=== PATIENT | female | born 1960 | race Two or more races ===

== ENCOUNTER → 2020-05-16 13:36 | Outpatient (BNVA) | payer MEDICAID, SELFPAY | PROVIDERS: Visit Provider Nurse Practitioner Family | DX: Z01.818 Encounter for other preprocedural examination (principal) | CPT/HCPCS: 99212 ==

== ENCOUNTER 2020-05-29 16:47 | Outpatient (REF) | payer MEDICAID, SELFPAY ==
--- NOTE | 2020-05-29 | MM_ITS ---
EXAMINATION: MM SCREENING DIGITAL BREAST TOMOSYNTHESIS, BILATERAL CLINICAL INFORMATION: Screening. Asymptomatic. The lifetime risk of breast cancer based on the Tyrer-Cuzick Model is 5%. COMPARISON: Mammography: 11/09/2018, 10/24/2017 TECHNIQUE: Digital breast tomosynthesis is performed in both the craniocaudal and mediolateral oblique views along with computer-aided detection (CAD). Synthesized 2D images are generated from the tomosynthesis. FINDINGS: The breasts are heterogeneously dense, which may obscure small masses (ACR BI-RADS breast composition Category c). There are no significant masses, abnormal calcifications, or other abnormalities. Parenchymal pattern is similar to prior studies. There is biopsy clip marker again noted mid 9:00 right breast. The axilla are unremarkable. MM/MM tomosynthesis screening BI IMPRESSION: No mammographic evidence of malignancy. ASSESSMENT: BI-RADS 1: Negative RECOMMENDATION: Routine annual mammography screening. This patient's information was entered into a reminder system with a target due date for their next mammogram.
== END 2020-05-29 16:48 | disposition home or self-care (01) ==
LOC: HO.MAMMO 16:47
PROVIDERS: PCP Internal Medicine; Visit Provider Internal Medicine
DX: Z12.31 Encounter for screening mammogram for malignant neoplasm of breast (principal)
CPT/HCPCS: 77063; 77067

== ENCOUNTER 2020-07-20 09:35 | Outpatient (REF) | payer MEDICAID, SELFPAY | END 2020-07-20 09:36 | disposition home or self-care (01) | LOC: HO.LAB 09:35 | PROVIDERS: Visit Provider Internal Medicine | DX: Z20.822 Contact with and (suspected) exposure to COVID-19 (principal) | CPT/HCPCS: 36415; C9803; U0003 ==

== ENCOUNTER 2020-07-27 10:06 | Day surgery (SDC) | payer MEDICAID, SELFPAY ==
--- NOTE | 2020-07-26 09:25 | HO.ANESPROP2 ---
Documented by User: Beatriz Bazzi 07/26/20 09:25 HPI - Anesthesia Eval Consult details Narrative: 59yo F for Colonoscopy PMFSH Past Medical History Medical History Diabetes mellitus HTN (hypertension) Hx of renal calculi Family History Family History Father Diabetes Heart problem Hypercholesteremia Mother HTN (hypertension) Diabetes H/O heart surgery Blood clot in vein Surgical History Surgical History History of bilateral carpal tunnel release Hx of section Hx of cholecystectomy Hx of cystoscopy Hx of dilation and curettage Social History Social History Alcohol intake: current Alcohol intake frequency: does not drink Smoking Status: Never smoker Use of substances other than those prescribed or required for medical reasons: No Advance Directives: No Advance Directives Information Provided: Yes Meds Allergies Allergy/AdvReac Type Severity Reaction Status Date / Time acetaminophen [Percocet] Allergy Severe edema Verified 07/27/20 11:02 morphine [MORPHINE] Allergy Intermediate HIVES/REDNESS Verified 07/27/20 11:02 TO FACE oxycodone [From PERCOCET] Allergy Intermediate RASH Verified 07/27/20 11:02 Penicillins [PENICILLINS] Allergy Intermediate RASH WITH Verified 07/27/20 11:02 HIVES Home Medications Medication Instructions Recorded Confirmed Type aspirin 81 mg tablet,delayed 81 mg PO DAILY 05/16/20 07/21/20 History release lisinopril 5 mg tablet 5 mg PO DAILY 05/16/20 07/21/20 History metformin 500 mg tablet 500 mg PO BID 05/16/20 07/21/20 History omeprazole 20 mg capsule,delayed 20 mg PO DAILY 05/16/20 07/21/20 History release simvastatin 10 mg tablet 10 mg PO QPM 05/16/20 07/21/20 History Exam Exam Date and Time: July 26, 2020924 Height,Weight and Vital Signs: Height 5 ft Assessment and Plan Assessment Anesthesia Assessment: Chart Reviewed Documented by User: Ciara Billingsley 07/27/20 12:05 [facility] Past Medical History Medical History Diabetes mellitus HTN (hypertension) Hx of renal calculi Family History Family History Father Diabetes Heart problem Hypercholesteremia Mother HTN (hypertension) Diabetes H/O heart surgery Blood clot in vein Family history of problems with anesthesia: No Surgical History Surgical History History of bilateral carpal tunnel release Hx of section Hx of cholecystectomy Hx of cystoscopy Hx of dilation and curettage History of Problems with Anesthesia: No Social History Social History Alcohol intake: current Alcohol intake frequency: does not drink Smoking Status: Never smoker Use of substances other than those prescribed or required for medical reasons: No Advance Directives: No Advance Directives Information Provided: Yes Meds Allergies Allergy/AdvReac Type Severity Reaction Status Date / Time acetaminophen [Percocet] Allergy Severe edema Verified 07/27/20 11:02 morphine [MORPHINE] Allergy Intermediate HIVES/REDNESS Verified 07/27/20 11:02 TO FACE oxycodone [From PERCOCET] Allergy Intermediate RASH Verified 07/27/20 11:02 Penicillins [PENICILLINS] Allergy Intermediate RASH WITH Verified 07/27/20 11:02 HIVES Home Medications Medication Instructions Recorded Confirmed Type aspirin 81 mg tablet,delayed 81 mg PO DAILY 05/16/20 07/21/20 History release lisinopril 5 mg tablet 5 mg PO DAILY 05/16/20 07/21/20 History metformin 500 mg tablet 500 mg PO BID 05/16/20 07/21/20 History omeprazole 20 mg capsule,delayed 20 mg PO DAILY 05/16/20 07/21/20 History release simvastatin 10 mg tablet 10 mg PO QPM 05/16/20 07/21/20 History Exam Height,Weight and Vital Signs: Vital Signs Temp Pulse Resp BP Pulse Ox 07/27/20 11:10 97.2 F 71 18 139/72 97 Pertinent Lab Results Pertinent Lab Results: Lab Results 07/27/20 Range/Units 11:11 POC Glucose 84 (60-115) mg/dL Airway Mallampati Class: II TM Dist: >3cm Neck ROM: Full Loose/Missing/Broken Teeth: No Heart: RRR Lungs: CTAB Assessment and Plan Assessment Anesthesia Assessment: Anesthesia Plan Discussed and Chart Reviewed Final Anesthetic Review NPO: Yes ASA Class: II Final Preanesthetic Review: No Changes in Pt Med Stat, Meds/Allgs Chart Reviewed, Consent Obtained/Reviewed and Anes Risks/Benef Reviewed Patient Risk: Low Procedure Risk: Low Assessment/Block/Sedation in SS: Assess/Block/Sedation-SS Anesthetic Plan Anesthetic Plan: MAC: Disposition: Standard PACU
[2020-07-27 11:10] VITALS: BP 139/72; PULSE 71; RESP 18; TEMP 36.2; O2SAT 97; BMI 25.4
[2020-07-27 11:15] LABS: Glucose, Whole Blood 84 mg/dL (60-115)
[2020-07-27] MEDS: Lactated Ringers 1,000 ML 100 ML IVCONT (11:27)
--- NOTE | 2020-07-27 11:35 | P.HPSUR_ITS ---
Pre-Procedural Eval Section B Chief Complaint: screening Relevant Family History (Specify if Yes): No Relevant Social History: None Present Medications: see Short Stay Collaborative assessment Medical History: Significant History (Diabetes mellitus HTN (hypertension) Hx of renal calculi) History of Previous Operations: Relevant previous surgery/procedure and date(s) (History of bilateral carpal tunnel release Hx of section Hx of cholecystectomy Hx of cystoscopy Hx of dilation and curettage) Allergies: Allergies Allergy/AdvReac Type Severity Reaction Status Date / Time acetaminophen [Percocet] Allergy Severe edema Verified 07/27/20 11:02 morphine [MORPHINE] Allergy Intermediate HIVES/REDNESS Verified 07/27/20 11:02 TO FACE oxycodone [From PERCOCET] Allergy Intermediate RASH Verified 07/27/20 11:02 Penicillins [PENICILLINS] Allergy Intermediate RASH WITH Verified 07/27/20 11:02 HIVES Review of Systems Sugical H&P ROS: Negative: Constitution, Cardiovascular, Respiratory, Neurological, Psychiatric, Hem-Onc, Allergic/Immunologic, Gastrointestinal, G enitourinary, Musculoskeletal, Integumentary, Endocrine and Eyes/Ears/Nose/Throat Exam Surgical H&P Exam: Normal: HEENT, Normal: Heart, Normal: Lungs, Normal: Extremities, Normal: Abdomen, Normal: Skin and Normal: Neurological Plan Diagnosis/Plan: Unchanged I have reviewed the history and physical and performed a pertinent physical examination on my patient. No changes have occurred unless specified.
--- NOTE | 2020-07-27 11:36 | PM.OP ---
Brief Operative Note Date of Service: 07/27/20 Pre-op diagnosis: colon screening Post-op diagnosis: same Procedure: see op note Surgeon: Joel Mae MD Anesthesia: MAC Estimated blood loss (mL): 0 Condition: stable Disposition: PACU
--- NOTE | 2020-07-27 11:36 | W.PM.OPN ---
Operative Note Operative Note Date of Service: 07/27/20 Narrative: Operative Information Procedure Description: Colonoscopy COLONOSCOPY Instrument: Olympus variable stiffness pediatric scope 190L Colonoscopy Monitoring: Vital signs and clinical assessment, continuous EKG monitoring, Pulse oximetry, Carbon Dioxide monitoring and blood pressure monitoring were done throughout the procedure. Colon withdrawal time was 13 minutes. Procedure: The patient was placed in the left lateral decubitis position and pre-procedure medications were administered. After a digital rectal examination of the ano-rectum, the video colonoscope was inserted into the rectum and advanced through the colon to the cecum/TI. The colonoscope was slowly withdrawn in a retrograde panoramic fashion and the colon mucosa was carefully examined including a retroflexed view of the rectum. Findings and interventions are described below. Procedure Difficulty:easy Findings: Terminal Ileum-normal Cecum:normal Ascending Colon: normal Transverse Colon -normal Descending Colon:normal Sigmoid Colon: 7-9 mm sessile polyp removed with forceps, otherwise normal Rectum: Retroflexion with small internal hemorrhoids, grade I Anorectum - normal Colon preparation: [place] Bowel Preparation Scale Right colon; 2 Transverse colon: 1 Left colon; 2 (0 = Unprepared colon segment with mucosa not seen due to solid stool that cannot be cleared. 1 = Portion of mucosa of the colon segment seen, but other areas of the colon segment not well seen due to staining, residual stool and/or opaque liquid. 2 = Minor amount of residual staining, small fragments of stool and/or opaque liquid, but mucosa of colon segment seen well. 3 = Entire mucosa of colon segment seen well with no residual staining, small fragments of stool or opaque liquid) Impression and Post Procedure Diagnosis: polyp internal hemorrhoids Plan: High fiber diet leaflet Avoid straining at stool, epsom salts and sitz bath, anusol supps or cream prn Repeat Colonoscopy in 5 years due to prep or earlier if clinically indicated Above findings were reviewed with the patient and relevant handouts were provided if indicated.
[2020-07-27 12:35] VITALS: BP 98/56; PULSE 66; RESP 16; TEMP 36.2; O2SAT 100
[2020-07-27 12:50] VITALS: BP 127/69; PULSE 70; RESP 17; TEMP 36.2; O2SAT 99
--- NOTE | 2020-07-27 13:22 | HO.POSTANES ---
Post Anesthesia Evaluation Post Anesthesia Evaluation Vital Signs: Vital Signs Temp Pulse Resp BP Pulse Ox 07/27/20 12:50 97.2 F 70 17 127/69 99 07/27/20 12:35 97.1 F 66 16 98/56 L 100 07/27/20 11:10 97.2 F 71 18 139/72 97 Anesthesia: General (TIVA) Mental Status: Awake Pain Control: Satisfactory Nausea/Vomiting: None Hydration: Adequate Anesthesia-Related Issues: No Anes. Related Issues
== END 2020-07-27 13:27 | disposition home or self-care (01) ==
PROVIDERS: PCP Internal Medicine; Visit Provider Internal Medicine Gastroenterology
PROC: 0DJD8ZZ Inspection of Lower Intestinal Tract, Via Natural or Artificial Opening Endoscopic (ICD-10-PCS; CPT 45378; principal; 2020-07-27 11:30)
DX: Z12.11 Encounter for screening for malignant neoplasm of colon (principal); D12.5 Benign neoplasm of sigmoid colon; K64.0 First degree hemorrhoids; I10 Essential (primary) hypertension; E11.9 Type 2 diabetes mellitus without complications; Z90.49 Acquired absence of other specified parts of digestive tract; Z79.82 Long term (current) use of aspirin; Z79.84 Long term (current) use of oral hypoglycemic drugs; Z79.899 Other long term (current) drug therapy; Z88.0 Allergy status to penicillin; Z88.8 Allergy status to other drugs, medicaments and biological substances
CPT/HCPCS: 45380; 82947; 88305

== ENCOUNTER 2020-07-28 11:32 | Outpatient (REF) | payer MEDICAID, SELFPAY | END 2020-07-28 11:33 | disposition home or self-care (01) | LOC: HO.LAB 11:32 | PROVIDERS: Visit Provider Internal Medicine | DX: Z20.822 Contact with and (suspected) exposure to COVID-19 (principal) | CPT/HCPCS: 36415; C9803; U0003 ==

== ENCOUNTER → 2020-08-17 14:28 | Outpatient (BNVA) | payer MEDICAID, SELFPAY | PROVIDERS: Visit Provider Nurse Practitioner Family | DX: Z76.89 Persons encountering health services in other specified circumstances (principal) | CPT/HCPCS: 99212 ==

== ENCOUNTER 2020-09-06 12:56 | Outpatient (REF) | payer MEDICAID, SELFPAY ==
[2020-09-07 10:18] LABS: BV Int Neg Control Negative (Negative); BV Int Pos Control Positive (Positive)
[2020-09-07 15:36] LABS: C. trachomatis RNA TMA NOT DETECTED (NOT DETECTED); N. gonorrhoeae RNA TMA NOT DETECTED (NOT DETECTED)
== END 2020-09-06 12:57 | disposition home or self-care (01) ==
LOC: HO.LAB 12:56
PROVIDERS: Visit Provider Obstetrics & Gynecology
DX: R10.2 Pelvic and perineal pain (principal)
CPT/HCPCS: 36415; 81003; 87480; 87491; 87510; 87591; 87660; 99212

== ENCOUNTER 2020-09-13 14:39 | Outpatient (REF) | payer MEDICAID, SELFPAY ==
--- NOTE | ~2020-09-13 | US_ITS ---
EXAMINATION: US PELVIS CLINICAL INFORMATION: Pelvic and perineal pain COMPARISON: Ultrasound pelvis 02/11/2019 TECHNIQUE: Transabdominal and transvaginal imaging of pelvis is performed. FINDINGS: The uterus is anteverted measuring 5.5 cm in length, 2.3 cm in AP and 3.6 cm in transverse dimension. The endometrial thickness is 0.2 cm. Previously visualized solitary fibroid is not visualized on the present exam. Previously visualized endometrial polyp is not visualized at this time. The right ovary measures 1.7 x 0.8 x 1.4 cm and volume 1.0 mL. There is a paraovarian simple cyst measuring 0.8 x 0.6 x 0.7 cm. Previously the right ovary measured 2.4 x 0.9 x 1.7 cm and volume 1.9 mL. Left ovary measures 1.9 x 1.4 x 1.2 cm and volume 1.7 mL. Previously left ovary measures 1.7 x 1.2 x 1.3 cm and volume 1.4 mL. It appears unremarkable. There is no free fluid in the cul-de-sac. US/US transvaginal IMPRESSION: Right paraovarian cyst. The ovaries are otherwise unremarkable. Previously visualized uterine fibroid and endometrial polyp is not seen on the present exam.
--- NOTE | ~2020-09-13 | US_ITS ---
EXAMINATION: US PELVIS CLINICAL INFORMATION: Pelvic and perineal pain COMPARISON: Ultrasound pelvis 02/11/2019 TECHNIQUE: Transabdominal and transvaginal imaging of pelvis is performed. FINDINGS: The uterus is anteverted measuring 5.5 cm in length, 2.3 cm in AP and 3.6 cm in transverse dimension. The endometrial thickness is 0.2 cm. Previously visualized solitary fibroid is not visualized on the present exam. Previously visualized endometrial polyp is not visualized at this time. The right ovary measures 1.7 x 0.8 x 1.4 cm and volume 1.0 mL. There is a paraovarian simple cyst measuring 0.8 x 0.6 x 0.7 cm. Previously the right ovary measured 2.4 x 0.9 x 1.7 cm and volume 1.9 mL. Left ovary measures 1.9 x 1.4 x 1.2 cm and volume 1.7 mL. Previously left ovary measures 1.7 x 1.2 x 1.3 cm and volume 1.4 mL. It appears unremarkable. There is no free fluid in the cul-de-sac. US/US pelvic complete IMPRESSION: Right paraovarian cyst. The ovaries are otherwise unremarkable. Previously visualized uterine fibroid and endometrial polyp is not seen on the present exam.
== END 2020-09-13 14:40 | disposition home or self-care (01) ==
LOC: HO.US 14:39
PROVIDERS: Visit Provider Obstetrics & Gynecology
DX: R10.2 Pelvic and perineal pain (principal)
CPT/HCPCS: 76830; 76856

== ENCOUNTER → 2020-09-21 16:03 | Outpatient (BNVA) | payer MEDICAID, SELFPAY | PROVIDERS: PCP Internal Medicine; Visit Provider Obstetrics & Gynecology | DX: R10.2 Pelvic and perineal pain (principal); R10.9 Unspecified abdominal pain ==

== ENCOUNTER → 2020-09-28 14:00 | Outpatient (BNVA) | payer MEDICAID, SELFPAY | PROVIDERS: PCP Internal Medicine; Visit Provider Urology | DX: Z13.89 Encounter for screening for other disorder (principal) | CPT/HCPCS: 99212 ==

== ENCOUNTER 2020-10-16 08:58 | Outpatient (REF) | payer MEDICAID, SELFPAY ==
[2020-10-16 09:37] LABS: COVID-19 Test Positive (Negative)
== END 2020-10-16 08:59 | disposition home or self-care (01) ==
LOC: HO.LAB 08:58
PROVIDERS: Visit Provider Internal Medicine
DX: Z20.822 Contact with and (suspected) exposure to COVID-19 (principal)
CPT/HCPCS: 36415; 87635; C9803

== ENCOUNTER 2020-11-06 13:45 | Outpatient (REF) | payer MEDICAID, SELFPAY ==
[2020-11-06 14:47] LABS: COVID-19 Test Negative (Negative)
== END 2020-11-06 13:46 | disposition home or self-care (01) ==
LOC: HO.LAB 13:45
PROVIDERS: Visit Provider Internal Medicine
DX: Z20.822 Contact with and (suspected) exposure to COVID-19 (principal)
CPT/HCPCS: 36415; 87635; C9803

== ENCOUNTER 2021-03-15 13:28 | Outpatient (REF) | payer MEDICAID, SELFPAY ==
--- NOTE | ~2021-03-15 | US_ITS ---
EXAMINATION: US RETROPERITONEAL LIMITED (RENAL ONLY) CLINICAL INFORMATION: Calculus of kidney. COMPARISON: Renal ultrasound 06/16/2019 and 02/11/2019. CT abdomen and pelvis 05/21/2018. TECHNIQUE: Real-time imaging of the kidneys. FINDINGS: RIGHT KIDNEY: 12.7 x 6.9 x 8.5 cm (SAG x AP x TRV). The kidney is normal in size and contour. There is severe right hydronephrosis. There is marked renal cortical thinning suggestive of long-standing obstruction. The visualized right ureter is dilated measuring up to 1.6 cm. No stone or mass is seen. LEFT KIDNEY: 12.2 x 6.2 x 4.7 cm (SAG x AP x TRV). The kidney is normal in size, contour, and echogenicity. Renal cortical thickness is normal. No calculi or focal parenchymal lesions. No hydronephrosis. US/US renal BI IMPRESSION: Severe right hydronephrosis similar to previous exams. Normal left kidney..
== END 2021-03-15 13:29 | disposition home or self-care (01) ==
LOC: HO.US 13:28
PROVIDERS: Visit Provider Urology
DX: N20.0 Calculus of kidney (principal); N26.1 Atrophy of kidney (terminal)
CPT/HCPCS: 76775

== ENCOUNTER 2021-04-17 14:03 | Outpatient (REF) | payer MEDICAID, SELFPAY | END 2021-04-17 14:04 | disposition home or self-care (01) | LOC: HO.MAMMO 14:03 | PROVIDERS: Visit Provider Internal Medicine | DX: Z13.89 Encounter for screening for other disorder (principal) ==

== ENCOUNTER → 2021-04-26 09:10 | Outpatient (BNVA) | payer MEDICAID, SELFPAY | PROVIDERS: PCP Registered Nurse Community Health; Visit Provider Urology ==

== ENCOUNTER 2021-06-04 12:51 | Outpatient (REF) | payer MEDICAID, SELFPAY ==
--- NOTE | ~2021-06-04 | MM_ITS ---
EXAMINATION: MM SCREENING DIGITAL BREAST TOMOSYNTHESIS, BILATERAL CLINICAL INFORMATION: Screening. Asymptomatic. The lifetime risk of breast cancer based on the Tyrer-Cuzick Model is 5%. COMPARISON: Mammography: 05/29/2020, 11/09/2018, 10/24/2017 TECHNIQUE: Digital breast tomosynthesis is performed in both the craniocaudal and mediolateral oblique views along with computer-aided detection (CAD). Synthesized 2D images are generated from the tomosynthesis. FINDINGS: The breasts are heterogeneously dense, which may obscure small masses (ACR BI-RADS breast composition Category c). Parenchymal pattern is similar to prior exams and there is no developing density or interval mass or architectural abnormality. Again, there is biopsy clip marker mid central 9:00 right breast. There are no abnormal calcifications. The axilla and skin contours are unremarkable. No significant changes. MM/MM tomosynthesis screening BI IMPRESSION: No mammographic evidence of malignancy. ASSESSMENT: BI-RADS 1: Negative RECOMMENDATION: Routine annual mammography screening. This patient's information was entered into a reminder system with a target due date for their next mammogram.
== END 2021-06-04 12:52 | disposition home or self-care (01) ==
LOC: HO.MAMMO 12:51
PROVIDERS: PCP Registered Nurse Community Health; Visit Provider Registered Nurse Community Health
DX: Z12.31 Encounter for screening mammogram for malignant neoplasm of breast (principal)
CPT/HCPCS: 77063; 77067

== ENCOUNTER 2021-09-21 14:31 | Outpatient (REF) | payer MEDICAID, SELFPAY ==
[2021-09-26 16:42] LABS: HPV mRNA E6/E7 rflx Not Detected (Not Detected)
== END 2021-09-21 14:32 | disposition home or self-care (01) ==
LOC: HO.LAB 14:31
PROVIDERS: PCP Internal Medicine; Visit Provider Advanced Practice Midwife
DX: Z01.419 Encounter for gynecological examination (general) (routine) without abnormal findings (principal); Z11.51 Encounter for screening for human papillomavirus (HPV)
CPT/HCPCS: 87624; 88142

== ENCOUNTER 2021-11-13 12:24 | Outpatient (REF) | payer MEDICAID, SELFPAY ==
--- NOTE | ~2021-11-13 | US_ITS ---
EXAMINATION: US RETROPERITONEAL LIMITED (RENAL ONLY) CLINICAL INFORMATION: Calculus of kidney. COMPARISON: Renal ultrasound 03/15/2021 and 06/16/2019. CT abdomen and pelvis 05/21/2018. TECHNIQUE: Real-time imaging of the kidneys. FINDINGS: RIGHT KIDNEY: 14.3 x 7.1 x 7.4 cm (SAG x AP x TRV). The kidney is normal in size, contour, and echogenicity. Renal cortical thickness is normal. No renal calculi or focal parenchymal lesions. There is mild hydronephrosis and hydroureter. The right ureter measures 1.6 cm in diameter. LEFT KIDNEY: 11.1 x 6.1 x 5.2 cm (SAG x AP x TRV). The kidney is normal in size, contour, and echogenicity. Renal cortical thickness is normal. No calculi or focal parenchymal lesions. No hydronephrosis. There is mild pelvic fullness. US/US renal BI IMPRESSION: No radiopaque renal calculi seen. There is mild right hydronephrosis, unchanged since 03/16/2021. Small amount of left renal pelvic fullness.
== END 2021-11-13 12:25 | disposition home or self-care (01) ==
LOC: HO.US 12:24
PROVIDERS: Visit Provider Urology
DX: N20.0 Calculus of kidney (principal)
CPT/HCPCS: 76775

== ENCOUNTER → 2022-01-01 14:03 | Outpatient (BNVA) | payer MEDICAID, SELFPAY | PROVIDERS: PCP Internal Medicine | DX: N20.0 Calculus of kidney (principal); N26.1 Atrophy of kidney (terminal) | CPT/HCPCS: 99212 ==

== ENCOUNTER 2022-05-13 14:18 | Outpatient (REF) | payer MEDICAID, SELFPAY ==
--- NOTE | ~2022-05-13 | US_ITS ---
EXAMINATION: US RETROPERITONEAL LIMITED (RENAL ONLY) CLINICAL INFORMATION: Atrophy of kidney (terminal). COMPARISON: Renal ultrasound 11/13/2021 and 03/15/2021. CT abdomen and pelvis 05/21/2018. TECHNIQUE: Real-time imaging of the kidneys. FINDINGS: RIGHT KIDNEY: 13.9 x 9.6 x 6.4 cm (SAG x AP x TRV). The right kidney is enlarged. There is severe right hydronephrosis and marked right renal cortical thinning. This is similar to previous exam. No renal stone or mass. LEFT KIDNEY: 11.4 x 7.1 x 4.9 cm (SAG x AP x TRV). The kidney is normal in size, contour, and echogenicity. Renal cortical thickness is normal. No calculi or focal parenchymal lesions. No hydronephrosis. US/US renal BI IMPRESSION: Severe right hydronephrosis and right renal cortical thinning similar to previous exam. Normal left kidney.
== END 2022-05-13 14:19 | disposition home or self-care (01) ==
LOC: HO.US 14:18
DX: N26.1 Atrophy of kidney (terminal) (principal); N20.0 Calculus of kidney
CPT/HCPCS: 76775

== ENCOUNTER 2022-06-19 15:47 | Outpatient (REF) | payer MEDICAID, SELFPAY ==
--- NOTE | ~2022-06-19 | MM_ITS ---
EXAMINATION: MM SCREENING DIGITAL BREAST TOMOSYNTHESIS, BILATERAL CLINICAL INFORMATION: Screening. Asymptomatic. The lifetime risk of breast cancer based on the Tyrer-Cuzick Model is 5%. COMPARISON: Mammography: 06/04/2021, 05/29/2020, 11/09/2018 TECHNIQUE: Digital breast tomosynthesis is performed in both the craniocaudal and mediolateral oblique views along with computer-aided detection (CAD). Synthesized 2D images are generated from the tomosynthesis. FINDINGS: The breasts are heterogeneously dense, which may obscure small masses (ACR BI-RADS breast composition Category c). Right breast has biopsy clip marker mid 9:00 position. There is no developing density or interval mass or architectural abnormality. Neither breast shows abnormal calcifications. The bilateral axilla and skin contours are unremarkable. Left breast has question of focal asymmetric density mid 3:00 position, versus artifact from shifting fibroglandular densities. Patient will be recalled for additional imaging. MM/MM tomosynthesis screening BI IMPRESSION: Left: -Question focal asymmetric density mid 3:00 position versus artifact from shifting fibroglandular tissue. Right: -No mammographic evidence of malignancy. ASSESSMENT: BI-RADS 0: Incomplete - Need Additional Imaging Evaluation RECOMMENDATION: 1. Additional views of the left breast (rolled CC x2, standard ML). 2. Targeted ultrasound if warranted after review of the additional views. 3. Radiology department staff will contact the patient for additional imaging. This patient's information was entered into a reminder system with a target due date for their next mammogram.
== END 2022-06-19 15:48 | disposition home or self-care (01) ==
LOC: HO.MAMMO 15:47
PROVIDERS: PCP Registered Nurse; Visit Provider Registered Nurse
DX: Z12.31 Encounter for screening mammogram for malignant neoplasm of breast (principal)
CPT/HCPCS: 77063; 77067

== ENCOUNTER → 2022-07-04 14:45 | Outpatient (BNVA) | payer MEDICAID, SELFPAY | PROVIDERS: PCP Registered Nurse; Visit Provider Nurse Practitioner Family | DX: Z13.89 Encounter for screening for other disorder (principal) ==

== ENCOUNTER 2022-07-12 14:24 | Outpatient (REF) | payer MEDICAID, SELFPAY ==
--- NOTE | ~2022-07-12 | MM_ITS ---
EXAMINATION: MM DIAGNOSTIC DIGITAL BREAST TOMOSYNTHESIS, LEFT CLINICAL INFORMATION: Recall from screening for question of focal asymmetric density mid 3:00 left breast versus artifact from shifting fibroglandular tissue. TC score 5%. COMPARISON: Mammography: 06/19/2022, 06/04/2021, 05/29/2020 TECHNIQUE: Digital breast tomosynthesis is performed. 2D images are generated from the tomosynthesis. The following views are obtained: Rolled CC x2, ML. FINDINGS: The breasts are heterogeneously dense, which may obscure small masses (ACR BI-RADS breast composition Category c). The additional views show no persistent asymmetric density. There is normal fibroglandular tissue seen. No underlying mass or architectural abnormality. Results are discussed with the patient at time of visit, using an court interpreter. MM/MM tomosynthesis added views L IMPRESSION: Additional views show no significant changes from prior studies. No asymmetric density, mass, or architectural abnormality. ASSESSMENT: BI-RADS 1: Negative RECOMMENDATION: Routine annual mammography screening. This patient's information was entered into a reminder system with a target due date for their next mammogram.
== END 2022-07-12 14:25 | disposition home or self-care (01) ==
LOC: HO.MAMMO 14:24
PROVIDERS: PCP Registered Nurse; Visit Provider Registered Nurse
DX: R92.2 Inconclusive mammogram (principal)
CPT/HCPCS: 77061; 77065

== ENCOUNTER → 2022-08-22 09:00 | Outpatient (REF) | payer MEDICAID, SELFPAY ==
--- NOTE | ~2022-08-22 | NM_ITS ---
EXAMINATION: RENAL DYNAMIC IMAGING STUDY CLINICAL INFORMATION: Atrophy of kidney. COMPARISON: Renal ultrasound done on 05/13/2022, 11/13/2021 and maternal scintigraphic done on 08/04/2018. TECHNIQUE: Serial gamma scintillation camera images were obtained over the posterior trunk during the initial transit and subsequent distribution of a bolus intravenous injection of 10.0 mCi Tc-99m (Sn)DTPA. At 30 minutes later, 30 mg of Lasix was administered intravenously and an additional 30 minutes of images obtained. FINDINGS: Initial rapid sequence images show good perfusion to the left kidney and no evidence of any significant perfusion to the right kidney. Sequential static images obtained up to 30 minutes post injection reveal adequate concentration within the left kidney only. There is evidence of excretory function by 5 minutes post injection. There is good accumulation of radioisotope urinary bladder with no retention in the renal pelvis on the post Lasix images, consistent with absence of obstruction of the pelvicalyceal system. Post void images show no evidence of any reflux or retention of radiotracer within the left renal pelvicalyceal system and absence of activity involving the right kidney. The relative function of the two kidneys based on the 2-3 minute images are: Left 100% and right 0%. NM/NM renal flow w pharm int IMPRESSION: LEFT KIDNEY: Normal in size, shape, outline, shows normal perfusion, concentration and excretion and no evidence of any obstruction. RIGHT KIDNEY: Nonvisualized, either surgically absent or nonfunctional.
== END ==
LOC: HO.NUCMED 09:00
PROVIDERS: PCP Registered Nurse; Visit Provider Nurse Practitioner Family
DX: N26.1 Atrophy of kidney (terminal) (principal)
CPT/HCPCS: 78708; A9539; J1940

== ENCOUNTER 2022-09-02 10:11 | Outpatient (REF) | payer MEDICAID, SELFPAY ==
[2022-09-02 12:46] LABS: Blood Urea Nitrogen 17 mg/dL (9-16); Estimated Glomerular Filt Rate 46
== END 2022-09-02 10:12 | disposition home or self-care (01) ==
LOC: HO.LAB 10:11
PROVIDERS: Visit Provider Nurse Practitioner Family
DX: N26.1 Atrophy of kidney (terminal) (principal)
CPT/HCPCS: 36415; 82565; 84520; 99212

== ENCOUNTER 2022-09-26 13:38 | Outpatient (REF) | payer MEDICAID, SELFPAY ==
[2022-09-26 18:40] LABS: CT PCR NOT DETECTED (Not Detect.); NG PCR NOT DETECTED (Not Detect.)
[2022-10-01 06:38] LABS: HPV mRNA E6/E7 rflx Not Detected (Not Detected)
== END 2022-09-26 13:39 | disposition home or self-care (01) ==
LOC: HO.LNP 13:38
PROVIDERS: PCP Registered Nurse; Visit Provider Advanced Practice Midwife
DX: Z01.419 Encounter for gynecological examination (general) (routine) without abnormal findings (principal); Z11.51 Encounter for screening for human papillomavirus (HPV); Z20.2 Contact with and (suspected) exposure to infections with a predominantly sexual mode of transmission
CPT/HCPCS: 0353U; 87624; 88142

== ENCOUNTER 2023-02-24 14:49 | Outpatient (REF) | payer MEDICAID, SELFPAY ==
--- NOTE | ~2023-02-24 | US_ITS ---
EXAMINATION: US RETROPERITONEAL LIMITED (RENAL ONLY) CLINICAL INFORMATION: Calculus of kidney. COMPARISON: Ultrasound retroperitoneal limited (renal only) 05/13/2022 and 11/13/2021. CT abdomen and pelvis with contrast 05/21/2018. TECHNIQUE: Real-time imaging of the kidneys. FINDINGS: RIGHT KIDNEY: 13.0 x 7.1 x 6.9 cm (SAG x AP x TRV). No perceptible normal renal parenchyma in this long-standing severely hydronephrotic kidney with renal cortical thinning. Visualized right ureter is dilated to 1.6 cm. LEFT KIDNEY: 11.0 x 5.6 x 5.1 cm (SAG x AP x TRV). The kidney is normal in size, contour, and echogenicity. Renal cortical thickness is normal. No focal parenchymal lesions or hydronephrosis. 0.6 x 0.4 x 0.4 cm echogenic, nonshadowing focus in the midpole. Left pelvic collecting system fullness. US/US renal BI IMPRESSION: Unchanged severe hydronephrosis with severe renal cortical thinning. Redemonstration right megaureter. Left renal pelvic collecting system fullness. 6 mm nonobstructing left mid pole renal calculus versus echogenic focus.
== END 2023-02-24 14:50 | disposition home or self-care (01) ==
LOC: HO.US 14:49
PROVIDERS: Visit Provider Nurse Practitioner Family
DX: N20.0 Calculus of kidney (principal)
CPT/HCPCS: 76775

== ENCOUNTER 2023-03-05 08:42 | Outpatient (REF) | payer MEDICAID, SELFPAY ==
[2023-03-05 09:42] LABS: Blood Urea Nitrogen 13 mg/dL (9-16); Estimated Glomerular Filt Rate 58
== END 2023-03-05 08:43 | disposition home or self-care (01) ==
LOC: HO.LAB 08:42
PROVIDERS: Visit Provider Nurse Practitioner Family
DX: R39.15 Urgency of urination (principal)
CPT/HCPCS: 36415; 82565; 84520

== ENCOUNTER 2023-03-14 14:11 | Outpatient (AMB) | payer MEDICAID, SELFPAY ==
--- NOTE | 2023-03-14 14:29 | A.OFFVIS_ITS ---
Intake Intake Visit Reasons: 6m/US/labs(set) Intake Note: Patient is present for follow up [facility]/labs/ultrasound (imaging 02/24/23) Urology Medications: none Blood Thinner: aspirin Loan Processing Supervisor Required: Yes Accompanied by: Unknown Allergies acetaminophen [Percocet] Allergy (Severe, Verified 03/16/23 16:26) edema morphine [MORPHINE] Allergy (Intermediate, Verified 03/16/23 16:26) HIVES/REDNESS TO FACE oxycodone [From PERCOCET] Allergy (Intermediate, Verified 03/16/23 16:26) RASH Penicillins [PENICILLINS] Allergy (Intermediate, Verified 03/16/23 16:26) RASH WITH HIVES Medication List - Last Reconciled 03/16/23 by DEVEN Leiva-HERB aspirin (Adult Low Dose Aspirin) 81 mg PO DAILY bisacodyl (Dulcolax (bisacodyl)) 10 mg (2 x 5 mg) PO ONCE 1 day blood sugar diagnostic (FreeStyle Lite Strips) As directed lancets (TRUEplus Lancets) As directed lisinopril 5 mg PO DAILY metformin 500 mg PO BID multivitamin 1 tab PO QAM omeprazole 20 mg PO DAILY polyethylene glycol 3350 (Miralax) 17 grams PO ONCE pyridoxine (vitamin B6) 100 mg PO DAILY 90 days simvastatin 20 mg PO QPM HPI HPI Comments History of Present Illness Details Destiny is a 62 year old Romanian speaking patient if Dr. Rodriguez who is accompanied by her significant other today. She presents to the office today for a follow up. Of note, patient was seen approximately 6 months ago at which time she had underwent Lasix renogram for further assessment and evaluation of longstanding right sided atrophic kidney. Imaging showing left 100% functioning and right at 0%. Left kidney normal in size, shape, outline, shows normal perfusion, concentration and excretion and no evidence of any obstruction and right kidney nonvisualized, either surgically absent or nonfunctional. Renal ultrasound results reviewed with the patient today. Unchanged severe hydronephrosis with severe renal cortical thickening redemonstrated on the right side. 6 mm nonobstructing left mid pole renal calculus verses echogenic focus seen. In discussion with the patient today she reports to be doing and feeling well. BUN: 02/22--17, 06/24--23, 08/29--17, 02/26--13 Creatinine: 02/22--1.25, 06/24--1.24, 08/29--1.20, 02/26--0.97 When compared to previous labs, BUN creatinine stable. Discussed at full length importance of management and maintaining good sugar control, diet control, and blood pressure management. She denies any urinary issues or concerns at this time. Patient denies urinary frequency, urinary urgency, dysuria, incontinence, hematuria, changes to urinary stream, flank pain, fever, and or chills. Discussed at length surveillance monitoring verses CT KUB for further assessment evaluation of question 6 mm renal calculi noted on ultrasound. [facility] Medical History BRENT I (cervical intraepithelial neoplasia I) Tubular adenoma Hx of renal calculi HTN (hypertension) Diabetes mellitus Surgical History History of esophagogastroduodenoscopy (EGD) H/O colonoscopy Hx of dilation and curettage Hx of cystoscopy History of bilateral carpal tunnel release Hx of cholecystectomy Hx of section Family History Father Diabetes Heart problem Hypercholesteremia Mother HTN (hypertension) Diabetes H/O heart surgery Blood clot in vein Social History Household Members: Spouse Housing: Apartment Alcohol intake: former Patient Tobacco Use Status: Never used Tobacco Current occupational status: unemployed Sexual orientation: Straight/Heterosexual Gender identity: Female Review of Systems Const All systems reviewed & are unremarkable except as noted in HPI and below Reports as per HPI Eyes Reports no additional complaints ENT Reports no additional complaints Card Reports no additional complaints Resp Reports no additional complaints GI Reports no additional complaints Reports as per HPI Musc Reports no additional complaints Neuro Reports no additional complaints Physical Exam Const General: cooperative, healthy appearing, no acute distress, well developed and alert Orientation/consciousness: patient oriented x3 HEENT Head: Yes normal to inspection Eyes General: appearance normal, both eyes and all related structures Neck Neck: Yes normal visual inspection Thyroid: Thyroid normal Chest Chest palpation & inspection: normal inspection of the chest Breast/axilla inspection: normal inspection of the breasts (no puckering, dimpling, peau de orange, retraction, discharge, masses) Breast/axilla palpation: normal palpation of the breasts Resp Effort & Inspection: normal respiratory effort GI Other: upper right abdomen scar Inspection: Yes normal to inspection Palpation (GI): Soft to palpation (to palpation) Rectal Exam - Female: deferred General: Yes bladder normal to inspection External Female Exam: normal external appearance and normal appearance of the urethra Speculum Exam - Vagina: normal appearance of the vagina, normal palpation and vagina atrophic Speculum Exam - Cervix: normal appearance of the cervix, normal palpation and Other cervical findings present (bled slightly with pap) Bimanual exam- vagina & uterus: normal palpation and normal palpation Bimanual Exam- Adnexa, other: normal adnexae and no masses Skin General skin exam: no rashes or lesions noted Neuro General: patient oriented x3 Cognition (Neuro): normal cognition Extrem General: Yes normal to inspection Psych Attitude: cooperative Thought process: Normal thought process present Thought content: Normal thought content present Results AMB Urinalysis, Automated UA Leukoctes 15 Vaishnavi/uL Last Edit by [employer] on 03/14/23 14:48 UA Nitrite Negative Last Edit by [employer] on 03/14/23 14:48 UA Urobilinogen 0.2 mg/dL Last Edit by [employer] on 03/14/23 14:48 UA Protein 0 mg/dL Last Edit by [employer] on 03/14/23 14:48 UA pH 6.0 Last Edit by [employer] on 03/14/23 14:48 UA Blood 0 Nadeem/uL Last Edit by [employer] on 03/14/23 14:48 UA Specific [place] 1.005 Last Edit by [employer] on 03/14/23 14:48 UA Ketone Last Edit by [employer] on 03/14/23 14:48 UA Bilirubin 0 mg/dL Last Edit by [employer] on 03/14/23 14:48 UA Glucose 0 mg/dL Last Edit by [employer] on 03/14/23 14:48 Results Reviewed Results Reviewed: Laboratory Last Values Urine pH (Auto) 6.0 03/14/23 14:33 Specific Simpson (Auto) 1.005 03/14/23 14:33 Urine Protein (Auto) 0 mg/dL 03/14/23 14:33 Glucose (UA)(Auto) 0 mg/dL 03/14/23 14:33 Urine Blood (Auto) 0 Nadeem/uL 03/14/23 14:33 Urine Nitrite (Auto) Negative 03/14/23 14:33 Urine Bilirubin (Auto) 0 mg/dL 03/14/23 14:33 Urine Urobilinogen (Auto) 0.2 mg/dL 03/14/23 14:33 Leukocyte Esterase (Auto) 15 Vaishnavi/uL 03/14/23 14:33 Date of Service: 02/24/23 EXAMINATION: US RETROPERITONEAL LIMITED (RENAL ONLY) FINDINGS: RIGHT KIDNEY: 13.0 x 7.1 x 6.9 cm (SAG x AP x TRV). No perceptible normal renal parenchyma in this long-standing severely hydronephrotic kidney with renal cortical thinning. Visualized right ureter is dilated to 1.6 cm. LEFT KIDNEY: 11.0 x 5.6 x 5.1 cm (SAG x AP x TRV). The kidney is normal in size, contour, and echogenicity. Renal cortical thickness is normal. No focal parenchymal lesions or hydronephrosis. 0.6 x 0.4 x 0.4 cm echogenic, nonshadowing focus in the midpole. Left pelvic collecting system fullness. IMPRESSION: Unchanged severe hydronephrosis with severe renal cortical thinning. Redemonstration right megaureter. Left renal pelvic collecting system fullness. 6 mm nonobstructing left mid pole renal calculus versus echogenic focus. Assessment & Plan Assessment & Plan (1) Atrophic kidney, acquired: Code(s): N26.1 - Atrophy of kidney (terminal) (2) Nephrolithiasis: Code(s): N20.0 - Calculus of kidney Plan In office urinalysis results reviewed with the patient today; as noted above. Renal imaging results reviewed with the patient today; as noted above. Recent BUN and creatinine results reviewed with the patient today; as noted above; stable Patient denies urinary issues/concerns; as mentioned above Discussed the importance of maintaining daily adequate fluid intake Discussed and educated on the importance of healthy diet, adequate sugar control, and blood pressure management. Renal U/S and BUN/CREAT in 6 months Start Vitamin B6 as discussed and prescribed. Discussed adding 1 oz of lemon juice to water daily. Follow up with imaging and labs to be completed prior or sooner with any issues or concerns Orders: Orders AMB Urinalysis Automated 03/14/23 Z13.9 - Encounter for screening, unspecified US renal BI 6 Months N20.0 - Calculus of kidney, N26.1 - Atrophy of kidney (terminal) Blood Urea Nitrogen 6 Months N26.1 - Atrophy of kidney (terminal) Creatinine 6 Months N26.1 - Atrophy of kidney (terminal) Medications: New pyridoxine (vitamin B6) 100 mg PO DAILY 90 tabs 2RF 90 days Patient Instructions: The patient had an opportunity to ask questions regarding the treatment plan. All questions were answered. Physical exam, labs, and imaging were discussed and reviewed in detail. As well as risks, benefits, and discussion of treatment choices. No major barriers to understanding were identified. The patient expressed understanding and agreement with the above treatment plan. The patient was made aware they should contact our office by phone for worsening of their current condition, the appearance of new symptoms, or with any questions or concerns. Compliance is encouraged with any medications and follow up testing that is ordered. It is a privilege to be allowed the opportunity to participate in? your urological care.? Again, if you have any questions or concerns If you have any questions or concerns please do not hesitate to contact me. The office is [phone]. This note is constructed using voice recognition software. While every effort has been made to ensure accuracy surg physician asst errors may have been included. Yours sincerely, STEPHANIE Leiva Coding Level of Care Code Est Pt Level 3 (66465) Diagnoses Atrophic kidney, acquired N26.1 Nephrolithiasis N20.0
== END 2023-03-14 15:02 | disposition home or self-care (01) ==
PROVIDERS: PCP Registered Nurse; Visit Provider Nurse Practitioner Family
DX: Z13.9 Encounter for screening, unspecified (principal)
CPT/HCPCS: 99213

== ENCOUNTER → 2023-03-14 14:11 | Outpatient (BNVA) | payer MEDICAID, SELFPAY | PROVIDERS: PCP Registered Nurse; Visit Provider Nurse Practitioner Family | DX: N26.1 Atrophy of kidney (terminal) (principal); N20.0 Calculus of kidney | CPT/HCPCS: 81003; 99212 ==

== ENCOUNTER 2023-06-23 13:01 | Outpatient (REF) | payer MEDICAID, SELFPAY ==
--- NOTE | ~2023-06-23 | US_ITS ---
EXAMINATION: US THYROID CLINICAL INFORMATION: Thyroid nodule. COMPARISON: Ultrasound soft tissue head/neck thyroid dated 03/28/2016 and 03/01/2013. TECHNIQUE: Linear transducer grayscale and color Doppler examination with attention to the region of the thyroid. FINDINGS: SIZE: Measurements of the thyroid lobes and nodules are given in sagittal, anteroposterior and transverse dimensions respectively. Right Thyroid Lobe: 5.7 x 1.5 x 1.9 cm, volume 8.5 mL. Previously 5.6 x 1.5 x 2.3 cm, volume 10.1 mL. Parenchyma: The gland echotexture is homogeneous. Thyroid vascularity is normal. Left Thyroid Lobe: 5.3 x 1.1 x 1.6 cm, volume 4.9 mL. Previously 5.1 x 1.3 x 1.8 cm, volume 6.1 mL. Parenchyma: The gland echotexture is homogeneous. Thyroid vascularity is normal. Isthmus: 0.2 cm in maximum AP dimension. Previously 0.2 cm. No focal thyroid nodule is seen. NODES: No lymphadenopathy is seen in the tissue surrounding the thyroid gland. US/US thyroid IMPRESSION: No suspicious thyroid nodules. ACR TI-RADS RECOMMENDATION REFERENCE: Ultrasound-guided fine-needle aspiration, follow up ultrasound, no further followup. * TR1 (0 point) and TR2 (2 points): No FNA or followup * TR3 (3 points): FNA if more than or equal to 2.5 cm in maximum dimension, follow up ultrasound in 1, 3 and 5 years if 1.5 to 2.4 cm in maximum dimension. * TR4 (4-6 points): FNA if more than or equal to 1.5 cm in maximum dimension, follow up ultrasound in 1, 2, 3 and 5 years if 1 to 1.4 cm in maximum dimension. * TR5 (more than or equal to 7 points): FNA if more than or equal to 1 cm in maximum dimension, follow up ultrasound every year for 5 years if 0.5 to 0.9 cm in maximum dimension. * TR3, TR4 or TR5 nodules that are below the size threshold for follow up receive no followup.
== END 2023-06-23 13:02 | disposition home or self-care (01) ==
LOC: HO.US 13:01
PROVIDERS: PCP Registered Nurse; Visit Provider Registered Nurse
DX: Z86.39 Personal history of other endocrine, nutritional and metabolic disease (principal)
CPT/HCPCS: 76536

== ENCOUNTER 2023-06-25 14:57 | Outpatient (REF) | payer MEDICAID, SELFPAY ==
--- NOTE | ~2023-06-25 | MM_ITS ---
EXAMINATION: MM SCREENING DIGITAL BREAST TOMOSYNTHESIS, BILATERAL CLINICAL INFORMATION: Screening. Asymptomatic. COMPARISON: Mammography: This study is compared with prior exams dating back to 2018. TECHNIQUE: Digital breast tomosynthesis is performed in both the craniocaudal and mediolateral oblique views along with computer-aided detection (CAD). Synthesized 2D images are generated from the tomosynthesis. FINDINGS: The breasts are heterogeneously dense, which may obscure small masses (ACR BI-RADS breast composition Category c). There are no significant masses, abnormal calcifications, or other abnormalities. There is a tissue marker in the lateral aspect of the right breast from prior benign percutaneous biopsy. MM/MM tomosynthesis screening BI IMPRESSION: No mammographic evidence of malignancy. ASSESSMENT: BI-RADS BI-RADS 2 - Benign Findings RECOMMENDATION: Routine annual mammography screening. 1 year F/U This examination should not preclude the clinical evaluation of a suspicious palpable abnormality. This patient's information was entered into a reminder system with a target due date for their next mammogram.
== END 2023-06-25 14:58 | disposition home or self-care (01) ==
LOC: HO.MAMMO 14:57
PROVIDERS: PCP Registered Nurse; Visit Provider Registered Nurse
DX: Z12.31 Encounter for screening mammogram for malignant neoplasm of breast (principal)
CPT/HCPCS: 77063; 77067

== ENCOUNTER → 2023-06-25 15:45 | Outpatient (BNV) | payer MEDICAID, SELFPAY | PROVIDERS: PCP Registered Nurse; Visit Provider Radiology Diagnostic Radiology | DX: Z12.31 Encounter for screening mammogram for malignant neoplasm of breast (principal) | CPT/HCPCS: 77063; 77067 ==

== ENCOUNTER 2023-09-01 15:38 | Outpatient (REF) | payer MEDICAID, SELFPAY ==
--- NOTE | ~2023-09-01 | US_ITS ---
EXAMINATION: US RETROPERITONEAL LIMITED (RENAL ONLY) CLINICAL INFORMATION: Calculus of kidney. COMPARISON: Renal ultrasound 02/24/2023 and 05/13/2022. CT abdomen and pelvis 05/21/2018. TECHNIQUE: Real-time imaging of the kidneys. FINDINGS: RIGHT KIDNEY: The kidney measures 14.2 x 7.1 x 6.5 cm. There is no perceptible normal renal parenchyma. Severe hydronephrosis unchanged from prior. LEFT KIDNEY: 11.3 x 5.7 x 4.1 cm (SAG x AP x TRV). The kidney is normal in size, contour, and echogenicity. Renal cortical thickness is normal. No calculi or focal parenchymal lesions. No hydronephrosis. US/US renal BI IMPRESSION: Chronic severe hydronephrosis of the right kidney is unchanged compared to prior. No visible nephrolithiasis. Normal-appearing left kidney.
== END 2023-09-01 15:39 | disposition home or self-care (01) ==
LOC: HO.US 15:38
PROVIDERS: PCP Registered Nurse; Visit Provider Nurse Practitioner Family
DX: N20.0 Calculus of kidney (principal); N26.1 Atrophy of kidney (terminal)
CPT/HCPCS: 76775

== ENCOUNTER 2023-09-12 13:51 | Outpatient (REF) | payer MEDICAID, SELFPAY ==
[2023-09-12 16:14] LABS: Blood Urea Nitrogen 19 mg/dL (9-16); Estimated Glomerular Filt Rate 53
== END 2023-09-12 13:52 | disposition home or self-care (01) ==
LOC: HO.LAB 13:51
PROVIDERS: PCP Registered Nurse; Visit Provider Nurse Practitioner Family
DX: N26.1 Atrophy of kidney (terminal) (principal)
CPT/HCPCS: 36415; 81003; 82565; 84520; 99212

== ENCOUNTER → 2023-09-12 13:51 | Outpatient (AMB) | payer MEDICAID, SELFPAY ==
--- NOTE | 2023-09-12 15:38 | MHC.OFFVIS ---
Intake Intake Visit Reasons: 6m/US/labs Intake Note: Patient is present for follow up [facility]/labs/ultrasound Imagin09/04/23 BUN and CREA: pending Urology Medications: none Blood Thinner: aspirin Tax Services Specialist Required: Yes Tax Services Specialist Name: ESSIE SAMANIEGOALANNAH Accompanied by: Unknown Allergies acetaminophen [Percocet] Allergy (Severe, Verified 09/14/23 06:21) edema morphine [MORPHINE] Allergy (Intermediate, Verified 09/14/23 06:21) HIVES/REDNESS TO FACE oxycodone [From PERCOCET] Allergy (Intermediate, Verified 09/14/23 06:21) RASH Penicillins [PENICILLINS] Allergy (Intermediate, Verified 09/14/23 06:21) RASH WITH HIVES Medication List - Last Reconciled 09/14/23 by DEVEN Leiva- aspirin (Adult Low Dose Aspirin) 81 mg PO DAILY bisacodyl (Dulcolax (bisacodyl)) 10 mg (2 x 5 mg) PO ONCE 1 day blood sugar diagnostic (FreeStyle Lite Strips) As directed lancets (TRUEplus Lancets) As directed lisinopril 5 mg PO DAILY metformin 500 mg PO BID multivitamin 1 tab PO QAM omeprazole 20 mg PO DAILY polyethylene glycol 3350 (Miralax) 17 grams PO ONCE pyridoxine (vitamin B6) 100 mg PO DAILY 90 days simvastatin 20 mg PO QPM HPI HPI Comments History of Present Illness Details Destiny is a 62 year old Cook Islander speaking patient if Dr. Rodriguez who is accompanied by her significant other today. She presents to the office today for a follow up of her chronic severe hydronephrosis. Recent renal imaging results reviewed with the patient today. Right kidney with severe hydronephrosis unchanged from prior study. Left kidney with no lesions, hydronephrosis, and or calculi. Previous workup has included a Lasix renogram showing left 100% functioning and right at 0%. Left kidney normal in size, shape, outline, shows normal perfusion, concentration and excretion and no evidence of any obstruction and right kidney nonvisualized, either surgically absent or nonfunctional. Renal ultrasound results reviewed with the patient today. Unchanged severe hydronephrosis with severe renal cortical thickening redemonstrated on the right side. In discussion with the patient today she reports to be doing and feeling well. BUN: 02/22--17, 06/24--23, 08/29--17, 02/26--13, 09/26--19 Creatinine: 02/22--1.25, 06/24--1.24, 08/29--1.20, 02/26--0.97, 09/26--1.05 When compared to previous labs, BUN creatinine stable. Discussed at full length importance of management and maintaining good sugar control, diet control, adequate hydration, and blood pressure management. She denies any urinary issues or concerns at this time. Patient denies urinary frequency, urinary urgency, dysuria, incontinence, hematuria, changes to urinary stream, flank pain, fever, and or chills. She otherwise offers no other issues or concerns at this time. [facility] Medical History BRENT I (cervical intraepithelial neoplasia I) Tubular adenoma Hx of renal calculi HTN (hypertension) Diabetes mellitus Surgical History History of esophagogastroduodenoscopy (EGD) H/O colonoscopy Hx of dilation and curettage Hx of cystoscopy History of bilateral carpal tunnel release Hx of cholecystectomy Hx of section Family History Father Diabetes Heart problem Hypercholesteremia Mother HTN (hypertension) Diabetes H/O heart surgery Blood clot in vein Social History Household Members: Spouse Housing: Apartment Alcohol intake: former Comment: pt states tripped down the stairs Patient Tobacco Use Status: Never used Tobacco Current occupational status: unemployed Sexual orientation: Straight/Heterosexual Gender identity: Female Review of Systems Const All systems reviewed & are unremarkable except as noted in HPI and below Reports as per HPI Eyes Reports no additional complaints ENT Reports no additional complaints Card Reports no additional complaints Resp Reports no additional complaints GI Reports no additional complaints Reports as per HPI Musc Reports no additional complaints Neuro Reports no additional complaints Physical Exam Const General: cooperative, healthy appearing, no acute distress, well developed and alert Orientation/consciousness: patient oriented x3 Limitations: no limitations HEENT Head: Yes normal to inspection Eyes General: appearance normal, both eyes and all related structures Neck Neck: Yes normal visual inspection Chest Chest palpation & inspection: normal inspection of the chest Breast/axilla inspection: normal inspection of the breasts (no puckering, dimpling, peau de orange, retraction, discharge, masses) Breast/axilla palpation: normal palpation of the breasts Resp Effort & Inspection: normal respiratory effort Cardio Rate: regular rate GI Inspection: Yes normal to inspection Palpation (GI): Soft to palpation (to palpation) Rectal Exam - Female: deferred General: Yes no CVA tenderness External Female Exam: normal external appearance and normal appearance of the urethra Speculum Exam - Vagina: normal appearance of the vagina, normal palpation and vagina atrophic Speculum Exam - Cervix: normal appearance of the cervix, normal palpation and Other cervical findings present (bled slightly with pap) Bimanual exam- vagina & uterus: normal palpation and normal palpation Bimanual Exam- Adnexa, other: normal adnexae and no masses Back/Spine/Pelvis Back: no CVA tenderness Skin General skin exam: no rashes or lesions noted Neuro General: patient oriented x3 Cognition (Neuro): normal cognition Extrem General: Yes normal to inspection Psych Appearance: grossly normal and well kempt Mental Status: mental status grossly normal Speech and movement: Normal speech and movement present and Clear speech present Affect: normal affect Attitude: cooperative Thought process: Normal thought process present Thought content: Normal thought content present Insight: Fair insight present (Psych) Judgement: Fair judgement present (Psych) Results AMB Urinalysis, Automated UA Leukoctes 0 Vaishnavi/uL Last Edit by [employer] on 09/12/23 15:41 UA Nitrite Negative Last Edit by [employer] on 09/12/23 15:41 UA Urobilinogen 0.2 mg/dL Last Edit by [employer] on 09/12/23 15:41 UA Protein 0 mg/dL Last Edit by [employer] on 09/12/23 15:41 UA pH 6.0 Last Edit by [employer] on 09/12/23 15:41 UA Blood 0 Nadeem/uL Last Edit by [employer] on 09/12/23 15:41 UA Specific [place] 1.010 Last Edit by [employer] on 09/12/23 15:41 UA Ketone Negative Last Edit by [employer] on 09/12/23 15:41 UA Bilirubin 0 mg/dL Last Edit by Ceci Vázquez on 09/12/23 15:41 UA Glucose 0 mg/dL Last Edit by Ceci Vázquez on 09/12/23 15:41 Results Reviewed Results Reviewed: Laboratory Last Values Urine pH (Auto) 6.0 09/12/23 15:40 Specific [place] (Auto) 1.010 09/12/23 15:40 Urine Protein (Auto) 0 mg/dL 09/12/23 15:40 Glucose (UA)(Auto) 0 mg/dL 09/12/23 15:40 Urine Ketones (Auto) Negative 09/12/23 15:40 Urine Blood (Auto) 0 Nadeem/uL 09/12/23 15:40 Urine Nitrite (Auto) Negative 09/12/23 15:40 Urine Bilirubin (Auto) 0 mg/dL 09/12/23 15:40 Urine Urobilinogen (Auto) 0.2 mg/dL 09/12/23 15:40 Leukocyte Esterase (Auto) 0 Vaishnavi/uL 09/12/23 15:40 Date of Service: 09/01/23 EXAMINATION: US RETROPERITONEAL LIMITED (RENAL ONLY) FINDINGS: RIGHT KIDNEY: The kidney measures 14.2 x 7.1 x 6.5 cm. There is no perceptible normal renal parenchyma. Severe hydronephrosis unchanged from prior. LEFT KIDNEY: 11.3 x 5.7 x 4.1 cm (SAG x AP x TRV). The kidney is normal in size, contour, and echogenicity. Renal cortical thickness is normal. No calculi or focal parenchymal lesions. No hydronephrosis. IMPRESSION: Chronic severe hydronephrosis of the right kidney is unchanged compared to prior. No visible nephrolithiasis. Normal-appearing left kidney. Assessment & Plan Assessment & Plan (1) Nephrolithiasis: Code(s): N20.0 - Calculus of kidney (2) Atrophic kidney, acquired: Code(s): N26.1 - Atrophy of kidney (terminal) (3) Hydronephrosis: Code(s): N13.30 - Unspecified hydronephrosis Plan In office urinalysis results reviewed with the patient today; as noted above. Recent renal imaging results reviewed with the patient today; as noted above. BUN and creatinine reviewed and trended with the patient today; as noted above. Patient denies any bothersome urinary issues or concerns. Patient reports be happy with current voiding parameters. Will continue with surveillance monitoring of chronic/severe hydronephrosis Discussed following up with PCP however patient will like to continue to follow-up with Urology Will obtain renal ultrasound in 1 year. Will obtain BUN and creatinine in 1 year. Follow-up in 1 year with labs and imaging to be completed prior; or sooner with any issues, concerns, and or questions. Orders: Orders US renal BI 1 Year N20.0 - Calculus of kidney, N26.1 - Atrophy of kidney (terminal) Blood Urea Nitrogen 1 Year N20.0 - Calculus of kidney, N26.1 - Atrophy of kidney (terminal) Creatinine 1 Year N20.0 - Calculus of kidney, N26.1 - Atrophy of kidney (terminal) AMB Urinalysis Automated 09/12/23 Z13.9 - Encounter for screening, unspecified Patient Instructions: The patient had an opportunity to ask questions regarding the treatment plan. All questions were answered. Physical exam, labs, and imaging were discussed and reviewed in detail. As well as risks, benefits, and discussion of treatment choices. No major barriers to understanding were identified. The patient expressed understanding and agreement with the above treatment plan. The patient was made aware they should contact our office by phone for worsening of their current condition, the appearance of new symptoms, or with any questions or concerns. Compliance is encouraged with any medications and follow up testing that is ordered. It is a privilege to be allowed the opportunity to participate in? your urological care.? Again, if you have any questions or concerns If you have any questions or concerns please do not hesitate to contact me. The office is [phone]. This note is constructed using voice recognition software. While every effort has been made to ensure accuracy project control manager errors may have been included. Yours sincerely, STEPHANIE Leiva Coding Level of Care Code Est Pt Level 4 (03746) Diagnoses Nephrolithiasis N20.0 Atrophic kidney, acquired N26.1 Hydronephrosis N13.30 Time Spent (min) 40
== END ==
PROVIDERS: PCP Registered Nurse; Visit Provider Nurse Practitioner Family
DX: N20.0 Calculus of kidney (principal); N26.1 Atrophy of kidney (terminal); N13.30 Unspecified hydronephrosis
CPT/HCPCS: 99214

== ENCOUNTER → 2023-10-03 14:34 | Outpatient (BNVA) | payer MEDICAID, SELFPAY | PROVIDERS: PCP Registered Nurse; Visit Provider Advanced Practice Midwife | DX: Z01.419 Encounter for gynecological examination (general) (routine) without abnormal findings (principal); Z20.2 Contact with and (suspected) exposure to infections with a predominantly sexual mode of transmission | CPT/HCPCS: 99396 ==

== ENCOUNTER 2023-10-03 14:35 | Outpatient (AMB) | payer MEDICAID, SELFPAY ==
--- NOTE | 2023-10-03 15:07 | A.OFFVIS_ITS ---
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 She is doing well with no concerns. Attempting to eat a healthy diet with calcium and vitamin D and stays active with exercise. Currently sexually active. Denies any vaginal dryness or irritation. STI testing offered; she declined. Last pap smear; 2021 negative, prior history CINI. Last mammogram; 2022. Colonoscopy is UTD. Denies any family history of breast, ovarian or colon cancer. [facility] Medical History BRENT I (cervical intraepithelial neoplasia I) Tubular adenoma Hx of renal calculi HTN (hypertension) Diabetes mellitus Surgical History History of esophagogastroduodenoscopy (EGD) H/O colonoscopy Hx of dilation and curettage Hx of cystoscopy History of bilateral carpal tunnel release Hx of cholecystectomy Hx of section Family History Father Diabetes Heart problem Hypercholesteremia Mother HTN (hypertension) Diabetes H/O heart surgery Blood clot in vein Social History Household Members: Spouse Housing: Apartment Alcohol intake: former Comment: pt states tripped down the stairs Patient Tobacco Use Status: Never used Tobacco Current occupational status: unemployed Sexual orientation: Straight/Heterosexual Gender identity: Female Female Reproductive History Menstrual Menopause type: natural Total pregnancies: 2 Full term: 1 Number of Living Children: 1 Ab spontaneous: 1 Date of last pap smear: 09/27/22 Date of Mammogram: 06/25/23 Review of Systems Const All systems reviewed & are unremarkable except as noted in HPI and below Reports as per HPI Eyes Reports no additional complaints ENT Reports no additional complaints Card Reports no additional complaints Resp Reports no additional complaints GI Reports as per HPI and Reports no additional complaints Reports as per HPI Musc Reports no additional complaints Skin/Breast Reports as per HPI Neuro Reports no additional complaints Psych Reports no additional complaints Endo Reports no additional complaints Jayce/Lymph Reports no additional complaints Aller/Immun Reports no additional complaints Physical Exam Vital Signs: Last Vital Signs BP 132/80 10/03/23 15:09 BMI result Body Mass Index 23.2 Const General: cooperative, healthy appearing, no acute distress, well developed and alert Orientation/consciousness: patient oriented x3 HEENT Head: Yes normal to inspection Eyes General: appearance normal, both eyes and all related structures Neck Neck: Yes normal visual inspection Thyroid: Thyroid normal Chest Chest palpation & inspection: normal inspection of the chest and other (no puckering, dimpling, peau de orange, retraction, discharge, masses) Breast/axilla inspection: normal inspection of the breasts Breast/axilla palpation: normal palpation of the breasts Resp Effort & Inspection: normal respiratory effort GI Inspection: Yes normal to inspection and Yes scar Palpation (GI): Soft to palpation Rectal Exam - Female: deferred General: Yes bladder normal to palpation External Female Exam: normal external appearance and normal appearance of the urethra Speculum Exam - Vagina: normal appearance of the vagina, normal palpation, normal vaginal discharge and vagina atrophic Speculum Exam - Cervix: normal appearance of the cervix and normal palpation Bimanual exam- vagina & uterus: normal bimanual exam, normal palpation, uterine size normal, bladder normal to palpation, normal palpation and non-tender Bimanual Exam- Adnexa, other: no masses Skin General skin exam: no rashes or lesions noted Rashes: no rashes Neuro General: patient oriented x3 Cognition (Neuro): normal cognition Extrem General: Yes normal to inspection Psych Attitude: cooperative Thought process: Normal thought process present Assessment & Plan Assessment & Plan (1) Encounter for well woman exam with routine gynecological exam: Code(s): Z01.419 - Encounter for gynecological examination (general) (routine) without abnormal findings Plan Discussed: Current recommendations for pap smears per ASCCP guidelines. Breast awareness, periodic self breast exams and yearly mammogram. Maintain a healthy lifestyle, well balanced diet including Calcium 1,200 mg and Vitamin D 600 IU daily, and routine exercise. Contact the office with any postmenopausal bleeding. Patient verbalizes understanding and agrees to the plan of care. She was given opportunity to ask questions and all questions were answered to the best of my ability. 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 This note is constructed using voice recognition software. While every effort has been made to ensure accuracy, lead java j2ee developer errors may have been included. Coding Level of Care Code Est Pt Prev Care 40-64y(26925) Diagnoses Encounter for well woman exam with routine gynecological exam Z01.419
[2023-10-03 15:09] VITALS: BP 132/80; BMI 23.2
== END 2023-10-03 15:38 | disposition home or self-care (01) ==
PROVIDERS: PCP Registered Nurse; Visit Provider Advanced Practice Midwife
DX: Z01.419 Encounter for gynecological examination (general) (routine) without abnormal findings (principal)
CPT/HCPCS: 99396

== ENCOUNTER 2024-03-16 09:16 | Outpatient (REF) | payer MEDICAID, SELFPAY ==
--- NOTE | ~2024-03-16 | US_ITS ---
EXAMINATION: US ABDOMEN COMPLETE CLINICAL INFORMATION: Generalized abdominal pain. COMPARISON: Ultrasound renal 09/01/2023 and 02/24/2023. CT abdomen and pelvis 05/21/2018. TECHNIQUE: Real-time imaging of the abdominal viscera. Midline/right upper quadrant somewhat limited by scarring. FINDINGS: PANCREAS: The visualized portions of the pancreas are unremarkable but a portion of the gland is obscured by bowel gas. ABDOMINAL AORTA: The proximal, mid, and distal segments are normal in caliber. INFERIOR VENA CAVA: Visualized portions are normal. LIVER: Normal. The liver is normal in size. The liver contour is normal. Parenchymal echogenicity is normal. No focal hepatic lesion. There is no intrahepatic biliary duct dilatation seen. GALLBLADDER: Surgically absent. COMMON BILE DUCT: Normal in caliber measuring 1.4 cm in diameter. RIGHT KIDNEY: The right kidney is grossly abnormal and is essentially a hydronephrotic shell with no discernible parenchyma. Similar findings can be seen on the 05/21/2018 CT scan. No renal calculi or focal parenchymal lesions. The kidney measures 14.2 cm in maximum dimension. LEFT KIDNEY: Normal. No hydronephrosis. No renal calculi or focal parenchymal lesions. The kidney measures 11.5 cm in maximum dimension. SPLEEN: Poorly seen. The spleen measures 7.0 cm in maximum dimension. FREE FLUID: None. US/US abdomen complete IMPRESSION: 1. A cause for the patient's generalized abdominal pain has not been found. 2. Right-sided hydronephrosis with no discernible parenchyma. 3. Status post cholecystectomy with dilated common bile duct without intrahepatic biliary ductal dilatation. Electronically signed by: Fawad Katz MD 03/24/2024 02:10 PM EDT
== END 2024-03-16 09:17 | disposition home or self-care (01) ==
LOC: HO.US 09:16
PROVIDERS: PCP Registered Nurse; Visit Provider Registered Nurse
DX: R10.84 Generalized abdominal pain (principal)
CPT/HCPCS: 76700

== ENCOUNTER 2024-04-06 17:56 | Outpatient (REF) | payer MEDICAID, SELFPAY ==
[2024-04-06 18:15] LABS: Appearance Urine Clear; Color Urine Yellow; Glucose Urine UA Negative (Negative); Leukocyte Esterase Urine Trace (Negative); Nitrite Urine Negative (Negative); PH 6.5 (5.0-9.0); Specific Gravity - Urine <= 1.005 (1.005-1.025); UMIC TRIGGER UACC YES; Urine Blood Negative (Negative); Urine Ketones Negative (Negative); Urine Protein Negative (Neg-Trace)
[2024-04-06 18:26] LABS: Bacteria Urine None Seen (None Seen); Hyaline Casts Urine 0-2 /LPF (0-2); RBC Urine 0-2 /HPF (0-2); Squamous Epithelial Cell Urine 0-2 /HPF (0-2); WBC Urine 0-5 /HPF (0-5)
== END 2024-04-06 17:57 | disposition home or self-care (01) ==
LOC: HO.HHCLNP 17:56
PROVIDERS: Visit Provider Nurse Practitioner Primary Care
DX: R39.89 Other symptoms and signs involving the genitourinary system (principal)
CPT/HCPCS: 81001

== ENCOUNTER 2024-04-20 15:02 | Outpatient (REF) | payer MEDICAID, SELFPAY ==
[2024-04-20 16:48] LABS: Appearance Urine Clear; Color Urine Yellow; Glucose Urine UA Negative (Negative); Leukocyte Esterase Urine Small (1+) (Negative); Nitrite Urine Negative (Negative); PH 6.5 (5.0-9.0); Specific Gravity - Urine <= 1.005 (1.005-1.025); UMIC TRIGGER UACC YES; Urine Blood Negative (Negative); Urine Ketones Negative (Negative); Urine Protein Negative (Neg-Trace)
[2024-04-20 16:55] LABS: Bacteria Urine None Seen (None Seen); Hyaline Casts Urine 0-2 /LPF (0-2); RBC Urine 0-2 /HPF (0-2); UACC Culture Trigger YES
[2024-04-20 17:00] LABS: Blood Urea Nitrogen 21 mg/dL (9-16); Estimated Glomerular Filt Rate 45
== END 2024-04-20 15:03 | disposition home or self-care (01) ==
LOC: HO.HHCL 15:02
PROVIDERS: Registered Nurse; Visit Provider Nurse Practitioner Family
DX: N26.1 Atrophy of kidney (terminal) (principal); N20.0 Calculus of kidney; R39.89 Other symptoms and signs involving the genitourinary system
CPT/HCPCS: 36415; 81001; 82565; 84520; 87086; 87147

== ENCOUNTER 2024-05-12 11:32 | Outpatient (REF) | payer MEDICAID, SELFPAY ==
[2024-05-12 18:26] LABS: Bacterial Vaginosis PCR POSITIVE (Negative); Candida Group PCR NOT DETECTED (Not Detect); Candida glab krusei PCR NOT DETECTED (Not Detect); Trichomonas vaginalis PCR NOT DETECTED (Not Detect)
[2024-05-13 05:46] LABS: CT PCR NOT DETECTED (Not Detect.); NG PCR NOT DETECTED (Not Detect.)
== END 2024-05-12 11:33 | disposition home or self-care (01) ==
LOC: HO.HHCL 11:32
PROVIDERS: Visit Provider Nurse Practitioner Family
DX: R10.2 Pelvic and perineal pain (principal)
CPT/HCPCS: 0352U; 87491; 87591

== ENCOUNTER 2024-05-31 15:51 | Outpatient (REF) | payer MEDICAID, SELFPAY | END 2024-05-31 15:52 | disposition home or self-care (01) | LOC: HO.US 15:51 | PROVIDERS: PCP Registered Nurse; Visit Provider Nurse Practitioner Family | DX: R10.2 Pelvic and perineal pain (principal) | CPT/HCPCS: 76830; 76856 ==

== ENCOUNTER 2024-09-02 15:36 | Outpatient (REF) | payer MEDICAID, SELFPAY ==
--- NOTE | ~2024-09-02 | US_ITS ---
EXAMINATION: US RETROPERITONEAL LIMITED (RENAL ONLY) CLINICAL INFORMATION: Kidney stone.. COMPARISON: Ultrasound abdomen 03/16/2024 TECHNIQUE: Routine retroperitoneal imaging of kidneys was performed. FINDINGS: RIGHT KIDNEY: 13.8 x 6.4 x 8.3. cm (SAG x AP x TRV). The kidney is normal in size, contour, and echogenicity. There is diffuse thinning of the renal cortex secondary to hydronephrosis with the hydronephrosis slightly increased. No renal calculi or focal parenchymal lesions. LEFT KIDNEY: Then 0.7 x 5.7 x 5.3 cm (SAG x AP x TRV). The kidney is normal in size, contour, and echogenicity. Renal cortical thickness is normal. No calculi or focal parenchymal lesions. No hydronephrosis. US/US renal BI IMPRESSION: Normal left kidney. Severe right hydronephrosis with diffuse thinning of kidney cortex. The hydronephrosis appears minimally increased since ultrasound abdomen 03/16/2024. Electronically signed by: Nicolas Epps MD 09/02/2024 04:52 PM [facility]
--- OUTSIDE RECORDS SUMMARY | 2024-09-02 18:59 | XMS_ITS | Clinical Summary ---
Author Organization [employer] Address [address] [facility] [address] [place] [address] Care Team Providers Care Shirt Bander Name Role Phone Marbella Rodriguez ADHESIVE SPRAYER Primary Care Provider [phone] Allergies Active Allergy Reactions Criticality Noted Date Comments Acetaminophen Nausea Only 02/18/2012 Oxycodone Nausea Only 02/18/2012 Penicillin G 02/11/2013 Medications FREESTYLE LITE test stripIndications: Type 2 diabetes mellitus treated without insulin (CMS/[facility]) TEST BLOOD SUGAR TWICE DAILY 100 strip 11 024 Active Easy Touch Lancets 33G/Twist misc TEST BLOOD SUGAR ONCE DAILY AND NEEDED 100 each 11 024 Active calcium carbonate EX (Tums E-X) 750 MG chewable tabletIndications :Generalized abdominal pain Chew 1-2 tablets (750-1,500 mg) if needed in the morning, at noon, and at bedtime for indigestion or heartburn. 180 tablet 1 024 2024 Active metFORMIN (Glucophage) 500 MG tabletIndications :Type 2 diabetes mellitus treated without insulin (CMS/HCC) TAKE 1 TABLET BY MOUTH EVERY MORNING 90 tablet 3 024 Active lisinopril 5 MG tablet TAKE 1 TABLET BY MOUTH EVERY MORNING 90 tablet 1 024 Active Blood Pressure kitIndications:Pr imary hypertension Use to check blood pressure once daily and symptomatic 1 kit 025 Active Multiple Vitamin (Multivitamin) tabletIndications :Routine health maintenance Take 1 tablet by mouth in the morning. 90 tablet 3 025 Active pyridoxine (Vitamin B-6) 100 MG tabletIndications :Kidney stone Take 1 tablet (100 mg) by mouth in the morning. 90 tablet 1 025 Active simvastatin (Zocor) 20 MG tabletIndications :Other hyperlipidemia Take 1 tablet (20 mg) by mouth at bedtime. (Cholesterol) 90 tablet 3 025 Active ibuprofen 200 MG tabletIndications :Viral upper respiratory tract infection Take 1 tablet (200 mg) by mouth every 6 (six) hours if needed for mild pain for up to 7 days. 28 tablet 025 2024 Active simvastatin (Zocor) 20 MG tabletIndications :Other hyperlipidemia TAKE 1 TABLET BY MOUTH EVERY EVENING 90 tablet 3 024 2024 Discontinued Hospital, Clinic, or Other Facility Administered Medication Ordered Dose Route Frequency Start Date End Date Status ibuprofen tablet 200 mgIndications:Viral upper respiratory tract infection 200 mg PO Once 08/30/2024 08/30/19 Ended Active Problems Problem Noted Date Diagnosed Date Pelvic pain 05/12/2024 Assessment & Plan (07/28/2024 5:07 PM EST): - Pelvic US May 2024 without any identified concerns or abnormalities - Resolved at this time. Follow up PRN Bunion, left foot 03/01/2024 Overview (03/01/2024): Following with Podiatry - Dr. Raza Per consult October 2023, plan for [facility] bunion left foot surgery for tx History of thyroid nodule 12/25/2022 Overview (09/01/2023): -U/s February 2013: Stable 0.2 x 0.1 x 0.1 cm right thyroid nodule -Repeat US Jun 2023: No suspicious thyroid nodules. Lab Results Component Value Date TSH 1.22 10/09/2022 Assessment & Plan (12/25/2022 5:10 PM EDT): Encouraged to call to schedule appt Lab Results Component Value Date TSH 1.22 10/09/2022 Atrophy of right kidney 09/07/2022 Overview (03/01/2024): -Followed by [facility], MERLENE Dove -Ultrasound 09/01/23: IMPRESSION: LEFT KIDNEY: Normal RIGHT KIDNEY: Severe hydronephrosis, stable -Mar 2023: [facility]. Renogram revealed left 100% functional and right at 0% Assessment & Plan (03/01/2024 4:59 PM EDT): Continue following with specialist Assessment & Plan (05/23/2023 5:04 PM EST): ? ? Continue following with specialist ? ? ED/urgent care precautions reviewed Assessment & Plan (09/07/2022 3:16 PM EST): -Denies any urinary symptoms today -Plan to follow up with specialist or emergency/urgent care as needed GERD (gastroesophageal reflux disease) Overview (05/23/2023): -Encourage lifestyle interventions such as: avoid triggering foods (such as coffee, chocolate, fatty foods), eating 2-3 hours before lying down Assessment & Plan (05/23/2023 5:06 PM EST): -well controlled w/o PPI -DC omeprazole, follow up with any resurgence of symptoms Routine health maintenance 09/05/2022 Overview (07/28/2024): STI: negative October 2022 Contraception: n/a Pap/Results: NILM HPV Neg 09/26/22 (Holly Shook CNM). Hx of BRENT 1 Smoking status: non-smoker Mammo: BIRADS 2 in Jun 2023 C-scope: 07/2020, repeat 5 years (07/2024) HTN (hypertension) 08/06/2022 Overview (03/01/2024): -Continue Lisinopril 5mg daily & lifestyle interventions Assessment & Plan (07/28/2024 5:08 PM EST): - Mild elevation in office - BP kit sent to pharmacy - Encouraged lifestyle interventions and to follow up if home BP readings above goal Assessment & Plan (03/01/2024 5:10 PM EDT): Elevated in office, although pt did not take medication this AM Encouraged med adherence, record home BP and follow up if above goal Cervical intraepithelial neoplasia grade 1 07/13 Diabetes mellitus 08/31/2013 Overview (07/28/2024): Lab Results Component Value Date HGBA1C 6.3 (A) 03/01/2024 -Well controlled -Medications: metformin 500mg daily & lifestyle interventions -Simvastatin 20mg nightly Assessment & Plan (07/28/2024 5:08 PM EST): Continue with current therapy Assessment & Plan (03/01/2024 5:06 PM EDT): Continue with current therapy Assessment & Plan (05/23/2023 5:05 PM EST): DC evening dose of metformin Kidney stone 02/11/2013 Developmental delay 02/11/2013 Assessment & Plan (09/01/2023 6:18 PM EST): Currently functioning with assistance from family and friends Previous referral for MAINFRAME SYSTEMS PROGRAMMER placed, phone numbers provided today for patient/sister to reach out to directly to schedule home evaluation Anxiety 02/11/2013 Assessment & Plan (09/07/2022 3:34 PM EST): -Not currently following with therapist or psychiatrist, denies interest at this time -No SI/HI/thoughts of self harm. -Plan to follow up as needed Resolved Problems Problem Noted Date Diagnosed Date Resolved Date UTI symptoms 05/12/2024 07/28/2024 Assessment & Plan (05/12/2024 2:00 PM EST): Positive for dysuria POCT uranalysis dipstick - Negative for UTI Vaginal discharge 05/12/2024 07/28/2024 Assessment & Plan (05/12/2024 1:57 PM EST): Vaginal discharge Negative Whiff test Negative clue cells Negative WBC Samples sent for culture Bacterial vaginosis 05/12/2024 07/28/19 Assessment & Plan (05/12/2024 9:10 PM EST): Vaginal discharge Swab sent to lab Positive for BV Encounters Date Type Department Care Team Description 09/02/2024 Orders Only [facility] External Provider, [facility] 08/30/2024 4:40 PM EST Office Visit [facility] [address] [place] [phone] Belkys Ferrell NP Sore throat (Primary Dx); Viral upper respiratory tract infection; Elevated blood pressure reading in office with diagnosis of hypertension 08/30/2024 Refill [facility] [address] [place] [phone] Marbella Rodriguez FNP Other hyperlipidemia 07/28/2024 11:15 AM EST Office Visit [facility] [address] [place] [phone] Marbella Rodriguez FNP Type 2 diabetes mellitus without complication, without long-term current use of insulin ([facility]) (Primary Dx); Routine health maintenance; Pelvic pain; Primary hypertension; Kidney stone 07/28/2024 Travel 07/27/2024 Telephone [facility] [address] [place] [address] Boby Gutierrez MA Chart Prep 07/05/2024 Telephone [facility] [address] [place] [phone] Marbella Rodriguez FNP Results 07/01/2024 Refill [facility] [address] [place] [phone] Marbella Rodriguez FNP 06/07/2024 Telephone [facility] [address] [place] [address] Marbella Rodriguez FNP Results from Last 3 Months Immunizations Name Administration Dates Next Due Influenza, IIV3, injectable 04/05/2014, 6 TD (adult), 2 Lf tetanus tox oid, preservative free, adsorbed 07/26/2005 Tdap 12/03/2013 Zoster, Recombinant 09/06/2019 Family History Medical History Relation Name Comments Cataracts Father Glaucoma Father Relation Name Status Comments Father Social History Tobacco Use Types Packs/Day Years Used Date Smoking Tobacco: Never Passive Smoke Exposure: Current Smokeless Tobacco: Never Tobacco Cessation:Counseling Given: Not Answered Alcohol Use Standard Drinks/Week Comments Never 0 (1 standard drink = 0.6 oz pur e alcohol) Alcohol Answer Date Recorded Frequency of Alcohol Consumption Not on file 05/07/2024 Average Number of Drinks Not on file 024 Frequency of Binge Drinking Not on file 07/2023 Score 0 05/07/2024 Depression Answer Date Recorded Patient Health Questionnaire-9 Score 6 05/23/2023 Patient Health Questionnaire-9 Score 6 05/23/2023 Last PHQ-9: Questionnaire Data Not on file 1 07/23/2022 Housing Stability Answer Date Recorded What is your housing situation today? I have monse mcknight 09/01/[address] you li ve. Do you have problems with any of the following? None of the above 09/01/2023 Food Insecurity Answer Date Recorded Within the past 12 months, y ou worried that your food would run out before you got money to buy more: Never True 09/01/2023 Within the past 12 months,th e food you bought just didn't last and you didn't have enough money to get more: Never True Transportation Answer Date Recorded In the past 12 months, has l ack of transportation kept you from medical appts, meetings, work or from getting things needed for daily living? No 09/01/2023 Utilities Answer Date Recorded In the past 12 months, has t he electric, gas, oil or water company threatened to shut off services in your home? No 09/01/2023 Depression Answer Date Recorded Patient Health Questionnaire-2 Score 3 05/23/2023 Comments No Sex and Gender Information Value Date Recorded Sex Assigned at Female 05/06/2022 10:14 AM EDT Legal Sex Female 10:14 AM EDT Gender Identity Female 09/07/2022 3:02 PM EST Sexual Orientation Choose not to disclose 2021 10:14 AM EDT Last Filed Vital Signs Vital Sign Reading Time Taken Comments Blood Pressure 156/84 08/30/2024 4:56 PM EST Pulse 80 08/30/2024 4:56 PM EST Temperature 39.2 ??C (102.5 ??F) 08/30/2024 4:[address] Respiratory Rate 16 08/30/2024 4:56 PM EST Oxygen Saturation 97% 08/30/2024 4:56 PM EST Inhaled Oxygen Concentration - - Weight 56.4 kg (124 lb 6.4 oz) 08/30/2024 4:56 P M EST Height 157.5 cm (5' 2 ) 08/30/2024 4:56 PM EST Body Mass Index 22.75 08/30/2024 4:56 PM EST Plan of Treatment Upcoming Encounters Date Type Department Care Team (Late st Contact Info) Description 10/20/2024 3:00 PM EDT Office Visit [facility] [address] [place], [place] [phone] Marbella Rodriguez FNP [address] [place] [address] Health Maintenance Due Date Last Done Comments CT Colonography 1960 FIT DNA/Cologuard 1960 FIT 1960 FOBT 1960 Sigmoidoscopy 1960 Eye Exam 1970 Pneumococcal Vaccine: 50+ Years (1 of 2 - PCV) 09/17/1979 Zoster Vaccines (2 of 2) 11/01/2019 09/06/2019 Diabetes: Urine Protein Screening 04/27/2022 04/27/2021, 12/28/2019 Lipid Panel 10/10/2023 10/09/2022, 04/07, 12/28/2019 DTaP/Tdap/Td Vaccines (2 - Td or Tdap) 12/04/2023 12/03/2013, 07/26/2005 Influenza Vaccine (#1) 2024 04/05/2014, 2005 Depression Screening 05/23/2024 05/23/2023, 05/23/20 Diabetes: Hemoglobin A1C 09/01/2024 024, 09/01/2023, 05/23/2023, Additional history exists SDOH Screening 09/01/2024 09/01/2023 Diabetes: Foot Exam 11/03/2024 11/04/2023, 09/01/2023, 09/01/2023, Additional history exists Alcohol/Substance Use Screening 05/07/2025 05/07/2024 Mammogram 06/25/2025 06/25/2023, 05/08, 05/29/2020, Additional history exists Colonoscopy 07/27/2025 07/27/2020 Colorectal Cancer Screening 07/27/2025 COVID-19 Vaccine ( season) 2025 Postponed from 03/07/2024 (Patient Refused) Tobacco Screening 07/28/2025 07/28/2024 Cervical Cancer Screening 09/27/2027 HPV/Cotest 09/27/2027 09/26/2022, 07/12/2020 Pap Smear 09/27/2027 09/26/2022, 07/12/2020 RSV Patients and Patients Aged 60 years or older (1 - 1-dose 75+ series) 09/17/2035 HIV Screening Completed 10/09/2022 Hepatitis C Screening Completed 10/09/2022 HIB Vaccines Aged Out No longer eligi ble based on patient's age to complete this topic HPV Vaccines Aged Out No longer eligi ble based on patient's age to complete this topic Hepatitis A Vaccines Aged Out No long er eligible based on patient's age to complete this topic Hepatitis B Vaccines Aged Out No long er eligible based on patient's age to complete this topic IPV Vaccines Aged Out No longer eligi ble based on patient's age to complete this topic Meningococcal Vaccine Aged Out No lora bruna eligible based on patient's age to complete this topic RSV under 20 months Aged Out No longe r eligible based on patient's age to complete this topic Rotavirus Vaccines Aged Out No longer eligible based on patient's age to complete this topic Procedures Procedure Name Priority Date/Time Associated Diagnosis Comments US RENAL BI Routine 09/02/2024 3:50 PM EST POCT RAPID STREP A Routine 08/30/2024 6: 08 PM EST Sore throat POCT INFLUENZA B Routine 08/30/2024 6:08 PM EST Sore throat POCT INFLUENZA A Routine 08/30/2024 6:08 PM EST Sore throat POCT RAPID COVID ANTIGEN Routine 08/30/2024 6:08 PM EST Sore throat POCT GLYCATED HEMOGLOBIN, TOTAL Routine 03/01/2024 10:02 AM EDT Type 2 diabetes mellitus without complication, without long-term current use of insulin (CMS/HCC) AMB REFERRAL TO PODIATRY Routine 11/04/2023 Bunion of left foot BI MAMMOGRAM SCREENING TOMOSYNTHESIS BILATERAL Routine 06/25/2023 3:15 PM EST HEPATITIS C AB W/REFL TO HCV RNA, QN, PCR Routine 10/09/2022 8:52 AM EDT Routine health maintenance HIV 1 RNA, QN PCR W/REFLEX TO GENOTYPE Routine 10/09/2022 8:52 AM EDT Routine health maintenance LIPID PANEL, STANDARD Routine 10/09/2022 8:52 AM EDT Routine health maintenance HPV MRNA E6/E7 REFLEX TO HPV 16, 18/45 Routine 09/26/2022 3:05 PM EDT PAP SMEAR Routine 09/26/2022 3:05 PM EDT ALBUMIN, RANDOM URINE W/CREATININE Routine 04/27/2021 10:04 AM EDT HM COLONOSCOPY Routine 07/27/2020 Routine health maintenance from Last 3 Months or Most Recently Relevant to Health Maintenance Results * US RENAL BI (09/02/2024 3:50 PM EST) Anatomical Region Laterality Modality Abdomen Ultrasound 09/02/2024 3:50 PM EST Narrative 09/02/2024 4:55 PM EST ? [facility] ?[address] ?[place] [address] ? Ultrasound Report ? Signed ? Patient: Canales,Destiny I ?MR#: [id number] ?? 8 ? : 1960 ?Acct:[id number] ? Age/Sex: 63 / F ?ADM Date: 02/27/25 ? Loc: HO.US ? Attending Dr: Nayla BROWN ? Ordering Physician: Nayla Dove ?? Date of Service: 09/02/24 ?? Procedure(s): US renal BI ?? Accession Number(s): [id number] ? cc: Nayla Dove; Marbella Rodriguez ? EXAMINATION: ?? US RETROPERITONEAL LIMITED (RENAL ONLY) ? CLINICAL INFORMATION: ?? Kidney stone.. ? COMPARISON: ?? Ultrasound abdomen 03/16/2024 ? TECHNIQUE: ?? Routine retroperitoneal imaging of kidneys was performed. ? FINDINGS: ? RIGHT KIDNEY: 13.8 x 6.4 x 8.3. cm (SAG x AP x TRV). The kidney is ?? normal in size, contour, and echogenicity. There is diffuse thinning of ?? the renal cortex secondary to hydronephrosis with the hydronephrosis ?? slightly increased. No renal calculi or focal parenchymal lesions. ? LEFT KIDNEY: Then 0.7 x 5.7 x 5.3 cm (SAG x AP x TRV). The kidney is ?? normal in size, contour, and echogenicity. Renal cortical thickness is ?? normal. No calculi or focal parenchymal lesions. No hydronephrosis. ? US/US renal BI ?? IMPRESSION: ?? Normal left kidney. ? Severe right hydronephrosis with diffuse thinning of kidney cortex. The ?? hydronephrosis appears minimally increased since ultrasound abdomen ?? 03/16/2024. ? Electronically signed by: ??Nicolas Epps MD ??09/02/2024 04:52 PM EST RP ? Dictated By: ?Nicolas Epps MD ? Signed By: ?<Electronically signed by Nicolas S MD Supriya in OV> ?09/02/24 1652 ? DD/ 1550 ? TD/TT: 09/02/24 1604 ? Head Refrigerating Engineer: MSM ? Procedure Note Shiraz, Gin - 09/02/[address] [address] Ultrasound Report Signed Patient: Destiny Canales IMR#: [id number] 8 : 1960cct:[id number] Age/Sex: 63 / FADM Date: 09/02/24 Loc: HO.US Attending Dr: Nayla CARVALHO- Ordering Physician: Nayla Dove Date of Service: 09/02/24 Procedure(s): US renal BI Accession Number(s): [id number] cc: Nayla Dove-; Marbella Rodriguez EXAMINATION: US RETROPERITONEAL LIMITED (RENAL ONLY) CLINICAL INFORMATION: Kidney stone.. COMPARISON: Ultrasound abdomen 03/16/2024 TECHNIQUE: Routine retroperitoneal imaging of kidneys was performed. FINDINGS: RIGHT KIDNEY: 13.8 x 6.4 x 8.3. cm (SAG x AP x TRV). The kidney is normal in size, contour, and echogenicity. There is diffuse thinning of the renal cortex secondary to hydronephrosis with the hydronephrosis slightly increased. No renal calculi or focal parenchymal lesions. LEFT KIDNEY: Then 0.7 x 5.7 x 5.3 cm (SAG x AP x TRV). The kidney is normal in size, contour, and echogenicity. Renal cortical thickness is normal. No calculi or focal parenchymal lesions. No hydronephrosis. US/US renal BI IMPRESSION: Normal left kidney. Severe right hydronephrosis with diffuse thinning of kidney cortex. The hydronephrosis appears minimally increased since ultrasound abdomen 03/16/2024. Electronically signed by: Nicolas Epps MD 09/02/2024 04:52 PM EST Dictated By: Nicolas Epps MD Signed By: <Electronically signed by Nicolas Epps MD in OV> 09/02/24 1652 DD/ 1550 TD/TT: 09/02/24 1604 Head Refrigerating Engineer: RICHY [facility] External Provider IMG US PROCEDURES Final Result * POCT Rapid COVID Ag (08/30/2024 6:08 PM EST) Pathologist [facility] Rapid COVID Ag Negative QC Media Lot # [id number] Lot# Expiration Date Swab 08/30/2024 6:[address] [facility] POINT OF CARE TEST ENTER/EDIT O RDERABLES Final Result * POCT Influenza B manually resulted (08/30/2024 6:08 PM EST) [facility] Rapid Influenza B Ag Negative Negative, Indeterminate QC Media Lot # [id number] Lot# Expiration Date Swab 08/30/2024 6:[address] [facility] POINT OF CARE TEST ENTER/EDIT O RDERABLES Final Result * POCT Influenza A manually resulted (08/30/2024 6:08 PM EST) [facility] Rapid Influenza A Ag Negative Negative, Indeterminate QC Media Lot # [id number] Lot# Expiration Date Swab Nasopharyngeal structure / Unknown 08/30/2024 6:[address] [facility] POINT OF CARE TEST ENTER/EDIT O RDERABLES Final Result * POCT rapid strep A manually resulted (08/30/2024 6:08 PM EST) [facility] Rapid Strep A Screen Negative Negative, None Detected QC Media Lot # [id number] Lot# Expiration Date Swab 08/30/2024 6:[address] [facility] POINT OF CARE TEST ENTER/EDIT O RDERABLES Final Result * (ABNORMAL) POCT HGB A1C (03/01/2024 10:02 AM EDT) [facility] Hemoglobin A1C 6.3(A) 4.0 - 6.0 % QC Media Lot # [id number] Lot# Expiration Date [id number] Blood 03/01/2024 10:0 2 AM EDT us Marbella Rodriguez ADHESIVE SPRAYER POINT OF CARE TEST ENTER/EDIT ORDERABLES Final Result * Referral to Podiatry (11/04/2023) us Marbella Rodriguez ADHESIVE SPRAYER OUTPATIENT REFERRAL ORDERABLES Final Result * BI Mammogram Screening Tomosynthesis Bilateral (06/25/2023 3:15 PM EST) Anatomical Region Laterality Modality Breast Bilateral Mammography 06/25/2023 3:15 PM EST Narrative 07/04/2023 10:27 AM EST ? [facility] [place] ? [address] ?[place] [address] ? Mammography Report ? Signed ? Patient: Canales,Destiny I ?MR#: [id number] ?? 8 ? : 1960 ?Acct:[id number] ? Age/Sex: 62 / F ?ADM Date: 06/25/ ? Loc: HO.MAMMO ? Attending Dr: Marbella Rodriguez ADHESIVE SPRAYER ? Ordering Physician: Marbella Rodriguez ADHESIVE SPRAYER ?Results: 2Benig ?? n Findings ? Date of Service: 06/25/ ?Follow Up: 1 Year From Orig ?? inal Mammogram ? Procedure(s): MM tomosynthesis screening BI ?? Accession Number(s): [id number] ? cc: Marbella Rodriguez ADHESIVE SPRAYER ? EXAMINATION: ?? MM SCREENING DIGITAL BREAST TOMOSYNTHESIS, BILATERAL ? CLINICAL INFORMATION: ? Screening. Asymptomatic. ? COMPARISON: ?? Mammography: This study is compared with prior exams dating back to ?? 2018. ? TECHNIQUE: ?? Digital breast tomosynthesis is performed in both the craniocaudal and ?? mediolateral oblique views along with computer-aided detection (CAD). ?? Synthesized 2D images are generated from the tomosynthesis. ? FINDINGS: ?? The breasts are heterogeneously dense, which may obscure small masses ?? (ACR BI-RADS breast composition Category c). ? There are no significant masses, abnormal calcifications, or other ?? abnormalities. ? There is a tissue marker in the lateral aspect of the right breast from ?? prior benign percutaneous biopsy. ? MM/MM tomosynthesis screening BI ?? IMPRESSION: ?? No mammographic evidence of malignancy. ? ASSESSMENT: ? BI-RADS BI-RADS 2 - Benign Findings ? RECOMMENDATION: ?? Routine annual mammography screening. ? 1 year F/U ? This examination should not preclude the clinical evaluation of a ?? suspicious palpable abnormality. ? This patient's information was entered into a reminder system with a ?? target due date for their next mammogram. ? Dictated By: ?Bettye Stewart MD ? Signed By: ?<Electronically signed by Bettye Stewart MD in OV> ? 07/04/23 1023 ? DD/ 1515 ? TD/TT: ? Head Refrigerating Engineer: ? Procedure Note Shiraz, Image - 07/04/2023 [facility] [address] [place] [address] [place] [address] Mammography Report Signed Patient: Destiny Canales [facility]#: [id number] 8 : 1Acct:[id number] Age/Sex: 62 / FADM Date: 06/25/23 Loc: MIGU[facility] Attending Dr: Marbella Rodirguez ADHESIVE SPRAYER Ordering Physician: Marbella Rodriguez FNPResults: 2Benig n Findings Date of Service: 06/25/23Follow Up: 1 Year From Orig ina Mammogram Procedure(s): MM tomosynthesis screening BI Accession Number(s): [id number] cc: Marbella Rodriguez EXAMINATION: MM SCREENING DIGITAL BREAST TOMOSYNTHESIS, BILATERAL CLINICAL INFORMATION: Screening. Asymptomatic. COMPARISON: Mammography: This study is compared with prior exams dating back to 2018. TECHNIQUE: Digital breast tomosynthesis is performed in both the craniocaudal and mediolateral oblique views along with computer-aided detection (CAD). Synthesized 2D images are generated from the tomosynthesis. FINDINGS: The breasts are heterogeneously dense, which may obscure small masses (ACR BI-RADS breast composition Category c). There are no significant masses, abnormal calcifications, or other abnormalities. There is a tissue marker in the lateral aspect of the right breast from prior benign percutaneous biopsy. MM/MM tomosynthesis screening BI IMPRESSION: No mammographic evidence of malignancy. ASSESSMENT: BI-RADS BI-RADS 2 - Benign Findings RECOMMENDATION: Routine annual mammography screening. 1 year F/U This examination should not preclude the clinical evaluation of a suspicious palpable abnormality. This patient's information was entered into a reminder system with a target due date for their next mammogram. Dictated By: Bettye Stewart MD Signed By: <Electronically signed by Bettye Stewart MD in OV> 07/04/23 1023 DD/ 1515 TD/TT: Head Refrigerating Engineer: Marbella Rodriguez ADHESIVE SPRAYER IMG BI PROCEDURES Final Result * HIV-1 RNA, Quantitative, PCR with Reflex to Genotype (10/09/2022 8:52 AM EDT) HIV 1 RNA, QN PCR Not Detected Copies/mL [facility] [place] HIV 1 RNA, QN PCR Not Detected Log cps/mL [facility] [employer] [place] [employer] [place] Comment: Reference Range: ?Not Detected ? copies/mL ?Not Detected Log copies/mL The test was performed using Real-Time Polymerase Chain Reaction. ? Reportable Range: 20 copies/mL to 10,000,000 copies/mL (1.30 Log copies/mL to 7.00 Log copies/mL). 10/09/2022 8:52 AM EDT 10/09/2022 8:53 AM EDT Narrative [facility] - 10/11/2022 8:59 PM EDT FASTING:YES PATIENT UNABLE TO VOID; ADVISED TO RETURN FOR COLLECTION. FASTING: YES Marbella Rodriguez [facility] BLOOD ORDERABLES Final Res ult [facility] 200 03 [address], [place] [address] [facility] [address] [facility] [place] [address] * Hepatitis C Antibody with Reflex to HCV, RNA, Quantitative, Real-Time PCR (10/09/2022 8:52 AM EDT) Hepatitis C Antibody NON-REACT WILBER NON-REACT WILBER [employer] [place] [employer] Index 0.09 <1.00 [employer] [employer] Comment: HCV antibody was non-reactive. There is no laboratory evidence of HCV infection. In most cases, no further action is required. However, if recent HCV exposure is suspected, a test for HCV RNA (test code 91870) is suggested. For additional information please refer to http://education.TrustHop/faq/MHU97q6 (This link is being provided for informational/ educational purposes only.) Blood Venous blood specimen / Unknown 10/09/2022 8:52 AM EDT 10/09/2022 8:53 AM EDT Narrative [facility] - 10/11/2022 8:59 PM EDT FASTING:YES PATIENT UNABLE TO VOID; ADVISED TO RETURN FOR COLLECTION. FASTING: YES us Marbella Rodriguez [facility] BLOOD ORDERABLES Final Res ult Performing Organization Address City/[facility]/ZIP Co de Phone Number [facility] [address], [place] [address] [employer] [place] [address] [place] [address] * (ABNORMAL) Lipid Panel, Standard (10/09/2022 8:52 AM EDT) Cholesterol, Total 172 <200 mg/dL [employer] [employer] HDL Cholesterol 58 > OR = 50 mg/dL [employer] [employer] Triglycerides 59 <150 mg/dL [employer] [employer] LDL Cholesterol 100(H) mg/dL (calc) [employer] [employer] Comment: Reference range: <100 Desirable range <100 mg/dL for primary prevention; ?? <70 mg/dL for patients with CHD or diabetic patients with > or = 2 CHD risk factors. LDL-C is now calculated using the Eliseo calculation, which is a validated novel method providing better accuracy than the Friedewald equation in the estimation of LDL-C. Elmer SS et al. BETTINA. 2013;310(19): 6263-5451 (http://education.sli.do/faq/CSI548) Chol/HDLC Ratio 3.0 <5.0 (calc) [facility] [employer] Non-HDL Cholesterol 114 <130 mg/dL (calc) [facility] [employer] Comment: For patients with diabetes plus 1 major ASCVD risk factor, treating to a non-HDL-C goal of <100 mg/dL (LDL-C of <70 mg/dL) is considered a therapeutic option. Blood Venous blood specimen / Unknown 10/09/2022 8:52 AM EDT 10/09/2022 8:53 AM EDT Narrative [facility] - 10/11/2022 8:59 PM EDT FASTING:YES PATIENT UNABLE TO VOID; ADVISED TO RETURN FOR COLLECTION. FASTING: YES Marbella Rodriguez [facility] LAB BLOOD ORDERABLES Final Res ult Performing Organization Address City/[facility] [address]/ZIP Co de Phone Number [facility] [address], [place] [address] [facility] [address] [place] [address] * HPV mRNA E6/E7 w/Reflex to HPV Genotypes 16, 18/45 (09/26/2022 3:05 PM EDT) HPV nRNA E6/E7 Not Detected Not Detected [facility] Comment:Methodology: Transcr iption-Mediated AmplificationThis assay detects E6/E7 viral messenger RNA (mRNA) from 14high-risk HPV types (16,18,31,33,35,39,45,51,52,56,58,59,66,68).Cervical sources are required for HPV testing.If a vaginal source from a patient who has had atotal hysterectomy with removal of cervix wassubmitted, please contact the testing laboratoryfor alternative testing options.For additional information, please refer tohttp://education.TrustHop/faq/VBL933y9(This link if provided for information/educational purposes only.)THIS TEST WAS PERFORMED AT:[facility] [place] [address]SZVRWISABEL KLEIN MD HPV mRNA E6/E7 [facility] HPV 16 RNA [facility] HPV 18/45 RNA [facility] 09/26/2022 3:05 PM EDT 09/27/2022 9:45 AM EDT us [facility] External Provider LAB CYT OLOGY ORDERABLES Final Result [facility] [address] [place] [address] [phone] * Pap Smear (09/26/2022 3:05 PM EDT) 09/26/2022 3:05 PM EDT 09/27/2022 9:45 AM EDT Narrative [facility] - 10/07/2022 12:02 PM EDT ----- ------- Name: Destiny Canales I ?Age/Sex: 62/F ? : 1960 Unit#: [id number] ?? Attend Dr: Holly Shook CNM ?Re09/26/22 ?Status: DEP REF ? Location: HO.LNP ?Disch: ? ----- ------- SPEC : [id number] ? RECD: 09/27/22 ? STATUS: ??SOUT ? REQ NUM: [id number] ? DAISHA: 09/26/22-1504 ? SUBM DR: Holly Shook CNM ? ENTERED: ??09/27/22-100 ?SP TYPE: Pap Smr ?OTHR DR: Marbella Rodriguez ADHESIVE SPRAYER ? ORDERED: ??Pap Smear ? Interpretation ?? Satisfactory for evaluation. ?? Negative for intraepithelial lesion or malignancy. ? HPV mRNA E6/E7: ?NOT DETECTED ? This assay detects E6/E7 viral messenger RNA (mRNA) from 14 high-risk HPV types (16, 18, ?? 31, 33, 35, 39, 45, 51, 52, 56, 58, 59, 66, 68) ? HPV testing performed by [facility], [place], [place]. ??See reference laboratory ?? portion of the EMR for entire report. ?Clinical Information LMP: Menopausal Previous PAP test: 2021, WNL ? Material Received ?? ThinPrep-Cervical Copies To: ?? Holly Shook CNM ?? [address] ?? [place] [address] ?? [phone] ?? Marbella Rodriguez ?? [address] [facility] ?? [place] [address] ?? [phone] ----- ------- Signed (signature on file) Yahaira Lopes Leoncio 10/07/22 1202 ? ----- ------- ? END OF REPORT ? us [facility] External Provider LAB CYT OLOGY ORDERABLES Final Result Performing Organization Address [facility] Co de Phone Number [facility] [address] [place], [place] [phone] * ALBUMIN, RANDOM URINE W/CREATININE (04/27/2021 10:04 AM EDT) Microalbumin Urine 2.3 See Note: mg/dL [facility] Comment: Reference Range: ?? Reference Range Not established Microalb/Creat Ratio 23 <30 mcg/mg creat [facility] Comment: ?? The ADA defines abnormalities in albumin excretion as follows: ?? Albuminuria Category ?Result (mcg/mg creatinine) ?? Normal to Mildly increased ?? <30 Moderately increased ? 30-299 ?? Severely increased ? > OR = 300 ?? The ADA recommends that at least two of three specimens collected within a 3-6 month period be abnormal before considering a patient to be within a diagnostic category. Creatinine, Urine 102 20 - 275 mg/dL [facility] 04/27/2021 10:0 4 AM EDT Keli Emery EDITORIAL SPECIALIST LAB URINE ORDERABLES Final Res ult Performing Organization Address [facility] Co de Phone Number [facility] [address] * (ABNORMAL) Colonoscopy (07/27/2020) Colonoscopy Abnormal(A ) Normal Narrative Marbella Rodriguez FNP - 07/27/2020 [facility] [place] Dr. Mae. Plan: 5 year follow up us Historical Provider HEALTH MAINTENANCE Final Result from Last 3 Months or Most Recently Relevant to Health Maintenance [facility] Care Teams Shirt Bander Relationship Specialty Start Date End Date Marbella Rodriguez FNP [address] [place] [address] PCP - General Family Medicine 03/05/22
--- OUTSIDE RECORDS SUMMARY | 2024-09-02 18:59 | XMS_ITS | Encounter Summary ---
Author Organization [employer] Address [address] [facility] 7t [place] [address] Care Team Providers Care Millwright Name Role Phone Marbella Rodriguez Primary Care Provider [phone] Reason for Visit * Reason Comments Med Refill Encounter Details Date Type Department Care Team ([facility] st Contact Info) Description 08/30/[address] [facility] MED[facility] [address] [place] [address] Marbella Rodriguez FNP [address] [place] [address] Other hyperlipidemia Social History Tobacco Use Types Packs/Day Years Used Date Smoking Tobacco: Never Passive Smoke Exposure: Current Smokeless Tobacco: Never Alcohol Use Standard Drinks/Week Comments Never 0 [...] not to disclose 2021 10:14 AM EDT documented as of this encounter Plan of Treatment Upcoming Encounters Date Type Department Care Team (Late st Contact Info) Description 10/20/2024 3:00 PM EDT Office Visit [facility] MED[facility] [address] [place] [address] Marbella Rodriguez FNP [address] [place] [address] documented as of this encounter Visit Diagnoses Diagnosis Other hyperlipidemia documented in this encounter Additional Health Concerns Assessment Noted Time PHQ-9 Depression Total Score: 6 05/23/20 23 4:38 PM EST documented as of this encounter Care Teams Millwright Relationship Specialty Start Date End Date Marbella Rodriguez FNP [address] [place] [address] PCP - General Family Medicine 03/05/22 documented as of this encounter
--- OUTSIDE RECORDS SUMMARY | 2024-09-02 18:59 | XMS_ITS | Encounter Summary ---
Author Organization [employer] Address [address] [facility] [address] [place] [address] Care Team Providers Care Foster Care Social Worker Name Role Phone Marbella Rodriguez Primary Care Provider [phone] Reason for Visit * Reason Onset Date Comments Results 08/05/2023 Encounter Details Date Type Department Care Team ([facility] st Contact Info) Description 08/05/2023 Telephone [facility] MEDICINE [address] [place] [address] Marbella Rodriguez FNP [address] [place] [address] Results Social History Tobacco Use Types Packs/Day Years Used Date Smoking Tobacco: Never Passive Smoke Exposure: Current Smokeless Tobacco: Never Alcohol Use Standard Drinks/Week Comments Never 0 (1 standard drink = 0.6 oz pur e alcohol) Depression Answer Date Recorded Patient Health Questionnaire-9 Score 6 05/23/2023 Patient Health Questionnaire-9 Score 6 05/23/2023 Last PHQ-9: Questionnaire Data Not on file 1 07/23/2022 Housing Stability Answer Date Recorded What is your housing situation today? I have monse mcknight 05/09/[address] you li ve. Do you have problems with any of the following? None of the above 05/09/2023 Food Insecurity Answer Date Recorded Within the past 12 months, y ou worried that your food would run out before you got money to buy more: Never True 05/09/2023 Within the past 12 months,th e food you bought just didn't last and you didn't have enough money to get more: Never True 09/2022 Transportation Answer Date Recorded In the past 12 months, has l ack of transportation kept you from medical appts, meetings, work or from getting things needed for daily living? No 05/09/2023 Utilities Answer Date Recorded In the past 12 months, has t he electric, gas, oil or water company threatened to shut off services in your home? No 05/09/2023 Depression Answer Date Recorded Patient Health Questionnaire-2 Score 3 05/23/2023 Comments Unknown Sex and Gender Information Value Date Recorded Sex Assigned at Female 05/06/2022 10:14 AM EDT Legal Sex Female 10:14 AM EDT Gender Identity Female 09/07/2022 3:02 PM EST Sexual Orientation Choose not to disclose 2021 10:14 AM EDT documented as of this encounter Miscellaneous Notes * Telephone Encounter - Argenis Ivan RN - 08/06/2023 11:28 AM EST Returned call to pt regarding message below. Pt informed of normal Mammo results and not due to repeat for another year. Pt agrees with plan. * Telephone Encounter - Marin Bar - 08/05/2023 9:15 AM EST TC from pt requesting call back regarding Results. Type of results: mammogram Date when done: N/A Facility: [facility] documented in this encounter Plan of Treatment Upcoming Encounters Date Type Department Care Team (Late st Contact Info) Description 10/20/2024 3:00 PM EDT Office Visit [facility] MEDICINE [address] [place] [address] Marbella Rodriguez FNP [address] [place] [address] documented as of this encounter Visit Diagnoses Not on filedocumented in this encounter Additional Health Concerns Assessment Noted Time PHQ-9 Depression Total Score: 6 05/23/20 23 4:38 PM EST documented as of this encounter Care Teams Foster Care Social Worker Relationship Specialty Start Date End Date Marbella Rodriguez FNP [address] [place] [address] PCP - General Family Medicine 03/05/22 documented as of this encounter
--- OUTSIDE RECORDS SUMMARY | 2024-09-02 18:59 | XMS_ITS | Encounter Summary ---
Author Organization [employer] Address [address] [facility] 7t [place] [address] Care Team Providers Care Director Visual Name Role Phone Marbella Rodriguez Primary Care Provider Encounter Details Date Type Department Care Team ([facility] Contact Info) Description 07/10/2022 Orders Only [facility] MED & PEDS [address] [place], [place] [phone] Colleen Conteh LPN Social History Tobacco Use Types Packs/Day Years Used Date Smoking Tobacco: Never Assessed Comments Unknown Sex and Gender Information Value Date Recorded Sex Assigned at Female 05/06/2022 10:14 AM EDT Legal Sex Female 10:14 AM EDT Gender Identity Female 09/07/2022 3:02 PM EST Sexual Orientation Choose not to disclose 2021 10:14 AM EDT COVID-19 Exposure Response Date Recorded In the last 10 days, have yo u been in contact with someone who was confirmed or suspected to have Coronavirus/COVID-19? Unable to assess 06/19/2022 2:55 PM EST documented as of this encounter Plan of Treatment Upcoming Encounters Date Type Department Care Team (Late Contact Info) Description 10/20/2024 3:00 PM EDT Office Visit [facility] MEDICINE [address] [place] [address] Marbella Rodriguez FNP [address] [place] [address] documented as of this encounter Visit Diagnoses Not on filedocumented in this encounter Care Teams Director Visual Relationship Specialty Start Date End Date Marbella Rodriguez FNP [address] [place] [address] PCP - General Family Medicine 03/05/22 documented as of this encounter
--- OUTSIDE RECORDS SUMMARY | 2024-09-02 18:59 | XMS_ITS | Encounter Summary ---
Author Organization [employer] Address [address] [facility] 7t [place] [address] Care Team Providers Care Cleaning Supervisor Name Role Phone Marbella Rodriguez [employer] Primary Care Provider [phone] Encounter Details Date Type Department Care Team (Late st Contact Info) Description 08/30/2024 4:40 PM EST Office Visit [facility] [address] [place] [address] Belkys Ferrell NP [address] [place] [address] Sore throat (Primary Dx); Viral upper respiratory tract infection; Elevated blood pressure reading in office with diagnosis of hypertension Social History Tobacco Use Types Packs/Day Years [...] AM EDT documented as of this encounter Last Filed Vital Signs Vital Sign Reading [...] Mass Index 22.75 08/30/2024 4:56 PM EST documented in this encounter Progress Notes * Belkys Ferrell NP - 08/30/2024 4:40 PM EST SUBJECTIVE: Destiny Canales is a 63 y.o. female who presents to the Walk in Center for a sick visit. Denies recent illness, injury, or hospitalization. Here with boyfriend HPI Complains of sore throat, fever, body aches and slight cough that started 1 day ago. Denies no shortness of breath, chills, n/v/d. Has not taken anything for her symptoms as she has single kidney andis fearful of taking anything not prescribed. Review of Systems Constitutional: Positive for fever. Negative for chills. HENT: Positive for sore throat. Negative for congestion. Respiratory: Positive for cough. Negative for chest tightness and shortness of breath. Cardiovascular: Negative for chest pain. Gastrointestinal: Negative for abdominal pain, constipation, diarrhea and nausea. Genitourinary: Negative for dysuria. Musculoskeletal: Positive for myalgias. Negative for arthralgias, back pain and neck pain. Skin: Negative. Negative for rash and wound. Neurological: Negative for weakness and light-headedness. Psychiatric/Behavioral: Negative for behavioral problems, confusion, decreased concentration and suicidal ideas. OBJECTIVE: Visit Vitals BP (!) 156/84 (BP Location: Left arm, Patient Position: Sitting, BP Cuff Size: Adult) Pulse 80 Temp (!) 102.5 ??F (39.2 ??C) (Temporal) Resp 16 Ht 5' 2 (1.575 m) Wt 124 lb 6.4 oz (56.4 kg) SpO2 97% BMI 22.75 kg/m?? OB Status Postmenopausal Smoking Status Never BSA 1.57 m?? Patient Active Problem List Diagnosis HTN (hypertension) Kidney stone Diabetes mellitus (CMS/HCC) Developmental delay Cervical intraepithelial neoplasia grade 1 Anxiety Routine health maintenance Atrophy of right kidney GERD (gastroesophageal reflux disease) History of thyroid nodule Bunion, left foot Pelvic pain Physical Exam Vitals reviewed. Constitutional: General: She is not in acute distress. Appearance: Normal appearance. She is not ill-appearing. HENT: Head: Normocephalic and atraumatic. Right Ear: External ear normal. Left Ear: External ear normal. Nose: Nose normal. Mouth/Throat: Mouth: Mucous membranes are moist. Pharynx: Uvula midline. No oropharyngeal exudate or posterior oropharyngeal erythema. Tonsils: No tonsillar exudate or tonsillar abscesses. Eyes: General: No scleral icterus. Extraocular Movements: Extraocular movements intact. Cardiovascular: Rate and Rhythm: Normal rate and regular rhythm. Pulmonary: Effort: Pulmonary effort is normal. No respiratory distress. Musculoskeletal: General: Normal range of motion. Cervical back: Normal range of motion and neck supple. Lymphadenopathy: Cervical: No cervical adenopathy. Neurological: General: No focal deficit present. Mental Status: She is alert and oriented to person, place, and time. Gait: Gait normal. Psychiatric: Mood and Affect: Mood normal. Behavior: Behavior normal. Assessment/Plan Diagnoses and all orders for this visit: Sore throat - POCT Rapid COVID Ag - POCT Influenza A manually resulted - POCT Influenza B manually resulted - POCT rapid strep A manually resulted Viral upper respiratory tract infection Comments: -symptoms suggestive of URI -Rapid COVID-19, Influenza and Strep all negative today -patient is apprehensive about use of ibuprofen due to having single kidney. Discussed using lowestpossible dose only to be taken when necessary for fever -febrile in clinic and was given 200 mg of ibuprofen -advised increase fluid intake, rest, ibuprofen -Sore throat: salt water gargles, drink tea with honey & lemon, suck lozenge -return to walk-in center if develop fever or symptoms worsen Orders: - ibuprofen 200 MG tablet; Take 1 tablet (200 mg) by mouth every 6 (six) hours if needed for mild pain for up to 7 days. - ibuprofen tablet 200 mg Elevated blood pressure reading in office with diagnosis of hypertension Comments: -followed by nephrology -patient states she did not take her medications today -med compliance, low salt diet, and routine physical activity is encouraged [place] Translation: Provided by [facility] staff member ALIE Perez documented in this encounter Plan of Treatment Upcoming Encounters Date Type Department Care Team (Late st Contact Info) Description 10/20/2024 3:00 PM EDT Office Visit [facility] MEDIC[facility] [address] [place] [address] Marbella Rodriguez FNP [address] [place] [address] documented as of this encounter Procedures Procedure Name Priority Date/Time Associated Diagnosis Comments POCT RAPID COVID ANTIGEN Routine 08/30/2024 6:08 PM EST Sore throat POCT INFLUENZA B Routine 08/30/2024 6:08 PM EST Sore throat POCT INFLUENZA A Routine 08/30/2024 6:08 PM EST Sore throat POCT RAPID STREP A Routine 08/30/2024 6: 08 PM EST Sore throat documented in this encounter Results * POCT rapid strep A manually resulted (08/30/2024 6:08 PM EST) [facility] Rapid Strep A Screen Negative Negative, None Detected QC Media Lot # [id number] Lot# Expiration Date Swab 08/30/2024 6:08 PM EST [facility] SENIOR RESERVATIONS AGENT POINT OF CARE TEST ENTER/EDIT O RDERABLES Final Result * POCT Influenza B manually resulted (08/30/2024 6:08 PM EST) [facility] Rapid Influenza B Ag Negative Negative, Indeterminate QC Media Lot # [id number] Lot# Expiration Date Swab 08/30/2024 6:08 PM EST [facility] SENIOR RESERVATIONS AGENT POINT OF CARE TEST ENTER/EDIT O RDERABLES Final Result * POCT Influenza A manually resulted (08/30/2024 6:08 PM EST) [facility] Rapid Influenza A Ag Negative Negative, Indeterminate QC Media Lot # [id number] Lot# Expiration Date Swab Nasopharyngeal structure / Unknown 08/30/2024 6:08 PM EST [facility] SENIOR RESERVATIONS AGENT POINT OF CARE TEST ENTER/EDIT O RDERABLES Final Result * POCT Rapid COVID Ag (08/30/2024 6:08 PM EST) [facility] Rapid COVID Ag Negative QC Media Lot # [id number] Lot# Expiration Date Swab 08/30/2024 6:08 PM EST [facility] SENIOR RESERVATIONS AGENT POINT OF CARE TEST ENTER/EDIT O RDERABLES Final Result documented in this encounter Visit Diagnoses Diagnosis Sore throat- Primary Acute pharyngitis Viral upper respiratory tract infection Acute upper respiratory infections of unspecified site Elevated blood pressure reading in office with diagnosis of hypertension documented in this encounter Administered Medications Inactive Administered Medications - up to 3 most recent administrations Medication Order MAR Action Action Date Dose Rate Site ibuprofen tablet 200 mg 200 mg, Oral, Once, On Fri08/30/24 at 1730, For 1 doseIndications:Viral upper respiratory tract infection Given 08/30/2024 5:30 PM EST 200 mg documented in this encounter Additional Health Concerns Assessment Noted Time PHQ-9 Depression Total Score: 6 05/23/20 23 4:38 PM EST documented as of this encounter Care Teams Cleaning Supervisor Relationship Specialty Start Date End Date Marbella Rodriguez FNP [address] [place] [address] PCP - General Family Medicine 03/05/22 documented as of this encounter
--- OUTSIDE RECORDS SUMMARY | 2024-09-02 18:59 | XMS_ITS | Encounter Summary ---
Author Organization [employer] Address [address] [facility] 7 [place] [address] Care Team Providers Care Terrazzo Journeyman Name Role Phone Marbella Rodriguez Primary Care Provider [phone] Reason for Visit * Reason Comments Med Refill Encounter Details Date Type Department Care Team (Late Contact Info) Description 12/14/2022 Refill [facility] [address] [place] [address] Marbella Rodriguez FNP [address] [place] [address] Routine health maintenance Social History Tobacco Use Types Packs/Day Years Used Date Smoking Tobacco: Never Passive Smoke Exposure: Never Smokeless Tobacco: Never Alcohol Use Standard Drinks/Week Comments Never 0 (1 standard drink = 0.6 oz pur e alcohol) Comments Unknown Sex and Gender Information Value [...] Description 10/20/2024 3:00 PM EDT Office Visit [facility] MEDICINE [address] [place] [address] Marbella Rodriguez FNP [address] [place] [address] documented as of this encounter Visit Diagnoses Diagnosis Routine health maintenance Unspecified examination documented in this encounter Care Teams Terrazzo Journeyman Relationship Specialty Start Date End Date Marbella Rodriguez FNP [address] [place] [address] PCP - General Family Medicine 03/05/22 documented as of this encounter
--- OUTSIDE RECORDS SUMMARY | 2024-09-02 18:59 | XMS_ITS | Encounter Summary ---
Author Organization [employer] Address 75 [facility] 7t [place] [address] Care Team Providers Care Marker Hand Name Role Phone Marbella Rodriguez HYDROMETER FINISHER Primary Care Provider [phone] Encounter Details Date Type Department Care Team ([facility] st Contact Info) Description 09/02/2024 Orders Only [facility] External Provider, [facility] Social History Tobacco Use Types Packs/Day Years [...] Description 10/20/2024 3:00 PM EDT Office Visit [facility] [address] [place] [address] Marbella Rodriguez, DEVEN [address] [place] [address] documented as of this encounter Procedures Procedure Name Priority Date/Time Associated Diagnosis Comments US RENAL BI Routine 09/02/2024 3:50 PM EST documented in this encounter Results * US RENAL BI (09/02/2024 3:50 PM EST) Anatomical Region Laterality Modality Abdomen Ultrasound 09/02/2024 3:50 PM EST Narrative 09/02/2024 4:55 PM EST ? [facility] ?[address] ?[place] [address] ? Ultrasound Report ? Signed ? Patient: Canales,Destiny I ?MR#: [id number] ?? 8 ? : 1960 ?Acct:[id number] ? Age/Sex: 63 / F ?ADM Date: 02/27/25 ? Loc: HO.US ? Attending Dr: Nayla BROWN ? Ordering Physician: Nayla Dove ?? Date of Service: 09/02/24 ?? Procedure(s): US renal BI ?? Accession Number(s): [id number] ? cc: Nayla Dove; Marbella Rodriguez ? [...] ? Signed By: ?<Electronically signed by Nicolas Epps MD in OV> ?09/02/24 1652 ? DD/ 1550 ? TD/TT: 09/02/24 1604 ? Electrical System Specialist: MSM ? Procedure Note Gin Weldon - 09/02/[address] [address] Ultrasound Report Signed Patient: Destiny Canales [facility]#: [id number] 8 : 1960cct:[id number] Age/Sex: 63 / FADM Date: 09/02/24 Loc: HO.US Attending Dr: Nayla BROWN Ordering Physician: Nayla Dove Date of Service: 09/02/24 Procedure(s): US renal BI Accession Number(s): [id number] cc: Nayla DoveP-BC; Marbella Rodriguez EXAMINATION: US RETROPERITONEAL LIMITED (RENAL [...] 09/02/24 1652 DD/ 1550 TD/TT: 09/02/24 1604 Electrical System Specialist: RICHY [facility] External Provider IMG US PROCEDURES Final Result documented in this encounter Visit Diagnoses Not on filedocumented in this encounter Additional Health Concerns Assessment Noted Time PHQ-9 Depression Total Score: 6 05/23/20 23 4:38 PM EST documented as of this encounter Care Teams Marker Hand Relationship Specialty Start Date End Date Marbella Rodriguez FNP [address] [place] [address] PCP - General Family Medicine 03/05/22 documented as of this encounter
--- OUTSIDE RECORDS SUMMARY | 2024-09-02 18:59 | XMS_ITS | Encounter Summary ---
Author Organization [employer] Address 75 [facility] 7 [place] [address] Care Team Providers Care Orthopaedic General Name Role Phone Marbella Rodriguez Primary Care Provider [phone] Encounter Details Date Type Department Care Team (Late Contact Info) Description 06/06/2022 Orders Only [facility] MEDICINE [address] [place] [address] Marbella Rodriguez FNP [address] [place] [address] Social History Tobacco Use Types Packs/Day Years [...] PM EDT Office Visit [facility] MEDICINE [address] [place] [address] Marbella Rodriguez FNP [address] [place] [address] documented as of this encounter Visit Diagnoses Not on filedocumented in this encounter Care Teams Orthopaedic General Relationship Specialty Start Date End Date Marbella Rodriguez FNP [address] [place] [address] PCP - General Family Medicine 03/05/22 documented as of this encounter
--- OUTSIDE RECORDS SUMMARY | 2024-09-02 18:59 | XMS_ITS | Encounter Summary ---
Author Organization [employer] Address 75 [facility] 7t [place] [address] Care Team Providers Care Carriage Operator Name Role Phone Marbella Rodriguez Primary Care Provider [phone] Reason for Visit * Reason Comments Med Refill Encounter Details Date Type Department Care Team ([facility] st Contact Info) Description 06/10/2023 Refill [facility] [address] [place] [address] Marbella Rodriguez FNP [address] [place] [address] Routine health maintenance Social History Tobacco Use [...] Description 10/20/2024 3:00 PM EDT Office Visit [facility] MEDICINE [address] [place] [address] Marbella Rodriguez FNP [address] [place] [address] documented as of this encounter Visit Diagnoses Diagnosis Routine health maintenance Unspecified examination documented in this encounter Additional Health Concerns Assessment Noted Time PHQ-9 Depression Total Score: 6 05/23/20 23 4:38 PM EST documented as of this encounter Care Teams Carriage Operator Relationship Specialty Start Date End Date Marbella Rodriguez FNP [address] [place] [address] PCP - General Family Medicine 03/05/22 documented as of this encounter
== END 2024-09-02 15:37 | disposition home or self-care (01) ==
LOC: HO.US 15:36
PROVIDERS: PCP Registered Nurse; Visit Provider Nurse Practitioner Family
DX: N26.1 Atrophy of kidney (terminal) (principal); N20.0 Calculus of kidney
CPT/HCPCS: 76775

== ENCOUNTER → 2024-09-02 15:37 | Outpatient (BNV) | payer MEDICAID, SELFPAY | PROVIDERS: PCP Registered Nurse; Visit Provider Radiology Diagnostic Radiology | DX: N13.39 Other hydronephrosis (principal); R93.421 Abnormal radiologic findings on diagnostic imaging of right kidney | CPT/HCPCS: 76775 ==

== ENCOUNTER 2024-09-13 15:04 | Outpatient (REF) | payer MEDICAID, SELFPAY ==
[2024-09-13 16:34] LABS: Blood Urea Nitrogen 18 mg/dL (9-16); Estimated Glomerular Filt Rate 59
== END 2024-09-13 15:05 | disposition home or self-care (01) ==
LOC: HO.LAB 15:04
PROVIDERS: PCP Registered Nurse; Visit Provider Nurse Practitioner Family
DX: R39.15 Urgency of urination (principal)
CPT/HCPCS: 36415; 82565; 84520

== ENCOUNTER 2024-09-16 09:32 | Outpatient (AMB) | payer MEDICAID, SELFPAY ==
--- NOTE | 2024-09-16 09:44 | A.OFFVIS_ITS ---
Intake Visit Reasons: 1y/US/labs Intake Note: Patient is present for follow up [facility]/labs/ultrasound Imagin09/02/24 BUN and CREA: BUN: 18; CREA: 0.96 Urology Medications: none Blood Thinner: aspirin Mushroom Press Operator Required: Yes Mushroom Press Operator Services: Mushroom Press Operator Present Accompanied by: Unknown Allergies acetaminophen [Percocet] Allergy (Severe, Verified 09/16/24 10:00) edema morphine [MORPHINE] Allergy (Intermediate, Verified 09/16/24 10:00) HIVES/REDNESS TO FACE oxycodone [From PERCOCET] Allergy (Intermediate, Verified 09/16/24 10:00) RASH Penicillins [PENICILLINS] Allergy (Intermediate, Verified 09/16/24 10:00) RASH WITH HIVES HPI Comments Details: Destiny is a 62 year old Burundian speaking patient if Dr. Rodriguez who is accompanied by her significant other today. She presents to the office today for a follow up of her chronic severe hydronephrosis. Recent renal imaging results reviewed with the patient today. Renal ultrasound 08/31 bilateral kidneys with no lesions or renal calculi. Right kidney with diffuse thinning secondary to hydronephrosis. Severe right-sided hydronephrosis. Previous workup has included a Lasix renogram 08/29 showing left 100% functioning and right at 0%. Left kidney normal in size, shape, outline, shows normal perfusion, concentration and excretion and no evidence of any obstruction and right kidney nonvisualized, either surgically absent or nonfunctional. Unchanged severe hydronephrosis with severe renal cortical thickening redemonstrated on the right side. In discussion with the patient today she reports to be doing and feeling well. Recent BUN and creatinine results reviewed with the patient today as noted and trended below: BUN: 02/22 17, 06/24 23, 08/29 17, 02/26 13, 09/26 19, 04/29 21, 09/28 18 Creatinine: 02/22 1.25, 06/24 1.24, 08/29 1.20, 02/26 0.97, 09/26 1.05, 04/29 1.22, 09/28 0.96 When compared to previous labs, BUN/creatinine stable. Discussed at length importance of management and maintaining good sugar control, diet control, adequate hydration, and blood pressure management. She denies any urinary issues or concerns at this time. Patient denies urinary frequency, urinary urgency, dysuria, incontinence, hematuria, changes to urinary stream, flank pain, fever, and or chills. In office urinalysis results reviewed with the patient today. She otherwise offers no other issues or concerns at this time. [facility] Medical History BRENT I (cervical intraepithelial neoplasia I) Tubular adenoma Hx of renal calculi HTN (hypertension) Diabetes mellitus Surgical History History of esophagogastroduodenoscopy (EGD) H/O colonoscopy Hx of dilation and curettage Hx of cystoscopy History of bilateral carpal tunnel release Hx of cholecystectomy Hx of section Family History Father Diabetes Heart problem Hypercholesteremia Mother HTN (hypertension) Diabetes H/O heart surgery Blood clot in vein Social History Household Members: Spouse Housing: Apartment Alcohol intake: former Comment: pt states tripped down the stairs Patient Tobacco Use Status: Never used Tobacco Current occupational status: unemployed Sexual orientation: Straight/Heterosexual Gender identity: Female Review of Systems Const All systems reviewed & are unremarkable except as noted in HPI and below Reports as per HPI Eyes Reports no additional complaints ENT Reports no additional complaints Card Reports no additional complaints Resp Reports no additional complaints GI Reports as per HPI and Reports no additional complaints Reports as per HPI Musc Reports no additional complaints Skin/Breast Reports as per HPI Neuro Reports no additional complaints Psych Reports no additional complaints Endo Reports no additional complaints Jayce/Lymph Reports no additional complaints Aller/Immun Reports no additional complaints Physical Exam Const General: cooperative, healthy appearing, comfortable, no acute distress, well developed and alert Orientation/consciousness: oriented to person Limitations: no limitations HEENT Head: Yes normal to inspection Eyes General: appearance normal, both eyes and all related structures Neck Neck: Yes normal visual inspection Chest Chest palpation & inspection: normal inspection of the chest Breast/axilla inspection: normal inspection of the breasts (no puckering, dimpling, peau de orange, retraction, discharge, masses) Breast/axilla palpation: normal palpation of the breasts Resp Effort & Inspection: normal respiratory effort Cardio Rate: regular rate GI Inspection: Yes normal to inspection Palpation (GI): Soft to palpation (to palpation) Rectal Exam - Female: deferred General: Yes no CVA tenderness External Female Exam: normal external appearance and normal appearance of the urethra Speculum Exam - Vagina: normal appearance of the vagina, normal palpation and vagina atrophic Speculum Exam - Cervix: normal appearance of the cervix, normal palpation and Other cervical findings present (bled slightly with pap) Bimanual exam- vagina & uterus: normal palpation and normal palpation Bimanual Exam- Adnexa, other: normal adnexae and no masses Back/Spine/Pelvis Back: no CVA tenderness Skin General skin exam: no rashes or lesions noted Neuro General: oriented to person Cognition (Neuro): normal cognition Extrem General: Yes normal to inspection Psych Appearance: grossly normal and well kempt Mental Status: mental status grossly normal Speech and movement: Normal speech and movement present and Clear speech present Affect: normal affect Attitude: cooperative Thought process: Normal thought process present Thought content: Normal thought content present Insight: Limited insight present (Psych) Judgement: Limited judgement present (Psych) Results AMB Urinalysis, Automated UA Leukoctes 0 Vaishnavi/uL Last Edit by [email or web address] on 09/16/24 10:03 UA Nitrite Last Edit by [email or web address] on 09/16/24 10:03 UA Urobilinogen 0.2 mg/dL Last Edit by [employer] on 09/16/24 10:03 UA Protein 15 mg/dL Last Edit by [employer] on 09/16/24 10:03 UA pH 5.5 Last Edit by [employer] Kathie on 09/16/24 10:03 UA Blood 0 Nadeem/uL Last Edit by [employer] on 09/16/24 10:03 UA Specific [place] 1.020 Last Edit by [email or web address] on 09/16/24 10:03 UA Ketone Negative Last Edit by Ceci Vázquez on 09/16/24 10:03 UA Bilirubin 0 mg/dL Last Edit by Ceci Vázquez on 09/16/24 10:03 UA Glucose 0 mg/dL Last Edit by Ceci Vázquez on 09/16/24 10:03 Results Reviewed Results Reviewed: Date of Service: 09/02/24 Procedure(s): US renal BI FINDINGS: RIGHT KIDNEY: 13.8 x 6.4 x 8.3. cm (SAG x AP x TRV). The kidney is normal in size, contour, and echogenicity. There is diffuse thinning of the renal cortex secondary to hydronephrosis with the hydronephrosis slightly increased. No renal calculi or focal parenchymal lesions. LEFT KIDNEY: Then 0.7 x 5.7 x 5.3 cm (SAG x AP x TRV). The kidney is normal in size, contour, and echogenicity. Renal cortical thickness is normal. No calculi or focal parenchymal lesions. No hydronephrosis. IMPRESSION: Normal left kidney. Severe right hydronephrosis with diffuse thinning of kidney cortex. The hydronephrosis appears minimally increased since ultrasound abdomen 03/16/2024. Assessment & Plan Assessment & Plan (1) Hydronephrosis: Code(s): N13.30 - Unspecified hydronephrosis Category: Medical (2) Atrophic kidney, acquired: Code(s): N26.1 - Atrophy of kidney (terminal) Category: Medical (3) Nephrolithiasis: Code(s): N20.0 - Calculus of kidney Category: Medical Plan In office urinalysis results reviewed with the patient today; as noted above. Recent renal imaging results reviewed with the patient today; as noted above. BUN and creatinine reviewed and trended with the patient today; as noted above. Patient denies any bothersome urinary issues or concerns. Patient reports be happy with current voiding parameters. Will continue with surveillance monitoring of chronic/severe hydronephrosis. Will obtain renal ultrasound in 6 months Will obtain BUN and creatinine in 6 months Follow-up in 6 months with labs and imaging to be completed prior; or sooner with any issues, concerns, and or questions. Orders: Orders AMB Urinalysis Automated Today Z13.9 - Encounter for screening, unspecified US renal BI 6 Months N13.30 - Unspecified hydronephrosis, N20.0 - Calculus of kidney Blood Urea Nitrogen 6 Months N13.30 - Unspecified hydronephrosis, N20.0 - Calculus of kidney, N26.1 - Atrophy of kidney (terminal) Creatinine 6 Months N13.30 - Unspecified hydronephrosis, N20.0 - Calculus of kidney, N26.1 - Atrophy of kidney (terminal) Patient Instructions: The patient had an opportunity to ask questions regarding the treatment plan. All questions were answered. Physical exam, labs, and imaging were discussed and reviewed in detail. As well as risks, benefits, and discussion of treatment choices. No major barriers to understanding were identified. The patient expressed understanding and agreement with the above treatment plan. The patient was made aware they should contact our office by phone for worsening of their current condition, the appearance of new symptoms, or with any questions or concerns. Compliance is encouraged with any medications and follow up testing that is ordered. It is a privilege to be allowed the opportunity to participate in? your urological care.? Again, if you have any questions or concerns If you have any questions or concerns please do not hesitate to contact me. The office is [phone]. This note is constructed using voice recognition software. While every effort has been made to ensure accuracy farm instructor errors may have been included. Yours sincerely, STEPHANIE Leiva Coding Level of Care Code Est Pt Level 3 (37689) Complex EM visit Add On G2211 Diagnoses Hydronephrosis N13.30 Atrophic kidney, acquired N26.1 Nephrolithiasis N20.0
--- OUTSIDE RECORDS SUMMARY | 2024-09-16 11:18 | XMS_ITS | Encounter Summary ---
Author Organization [employer] Address 75 [facility] 7 [place] [address] Care Team Providers Care Landscaping And Groundskeeping Laborer Name Role Phone Marbella Rodriguez Primary Care Provider [phone] Encounter Details Date Type Department Care Team (Late Contact Info) Description 06/06/2022 Orders Only [facility]ICINE [address] [place] [address] Marbella Rodriguez FNP [address] [place] [address] Social History Tobacco Use Types Packs/Day Years [...] Description 10/20/2024 3:00 PM EDT Office Visit [facility] [address] [place] [address] Marbella Rodriguez FNP [address] [place] [address] documented as of this encounter Visit Diagnoses Not on filedocumented in this encounter Care Teams Landscaping And Groundskeeping Laborer Relationship Specialty Start Date End Date Marbella Rodriguez FNP [address] [place] [address] PCP - General Family Medicine 03/05/22 documented as of this encounter
--- OUTSIDE RECORDS SUMMARY | 2024-09-16 11:18 | XMS_ITS | Encounter Summary ---
Author Organization [employer] Address 75 [facility] [address]t [place] [address] Care Team Providers Care Corrosion Control Engineer Name Role Phone Marbella Rodriguez Primary Care Provider [phone] Reason for Visit * Reason Comments Med Refill Encounter Details Date Type Department Care Team ([facility] st Contact Info) Description 08/30/2024 Refill [facility] MEDICINE [address] [place] [address] Marbella Rodriguez FNP [address] [place] [address] Other hyperlipidemia Social History Tobacco Use Types [...] Description 10/20/2024 3:00 PM EDT Office Visit [facility] MEDICINE [address] [place] [address] Marbella Rodriguez FNP [address] [place] [address] documented as of this encounter Visit Diagnoses Diagnosis Other hyperlipidemia documented in this encounter Additional Health Concerns Assessment Noted Time PHQ-9 Depression Total Score: 6 05/23/20 23 4:38 PM EST documented as of this encounter Care Teams Corrosion Control Engineer Relationship Specialty Start Date End Date Marbella Rodriguez FNP [address] [place] [address] PCP - General Family Medicine 03/05/22 documented as of this encounter
--- OUTSIDE RECORDS SUMMARY | 2024-09-16 11:18 | XMS_ITS | Encounter Summary ---
Author Organization [employer] Address 75 [facility] 7t [place] [address] Care Team Providers Care Didactic Instructor Name Role Phone Marbella Rodriguez ECONOMIC HISTORIAN Primary Care Provider [phone] Encounter Details Date Type Department Care Team (Late st Contact Info) Description 08/30/2024 4:40 PM EST Office Visit [facility] [address] [place] [address] Belkys Ferrell NP [address] [place] [address] Sore throat (Primary Dx); Viral upper respiratory [...] diet, and routine physical activity is encouraged Scottish Translation: Provided by [facility] staff member ALIE Perez documented in this encounter Plan of Treatment Upcoming Encounters Date Type Department Care Team (Late st Contact Info) Description 10/20/2024 3:00 PM EDT Office Visit [facility] [address] [place] [address] Marbella Rodriguez FNP [address] [place] [address] documented as of this encounter Procedures Procedure [...] A manually resulted (08/30/2024 6:08 PM EST) [facility] Rapid Strep A Screen Negative Negative, None Detected QC Media Lot # [id number] Lot# Expiration Date Swab 08/30/2024 6:[address] [facility] IT PROGRAM AUDITOR POINT OF CARE TEST ENTER/EDIT O RDERABLES Final Result * POCT Influenza B manually resulted (08/30/2024 6:08 PM EST) [facility] Rapid Influenza B Ag Negative Negative, Indeterminate QC Media Lot # [id number] Lot# Expiration Date Swab 08/30/2024 6:[address] [facility] IT PROGRAM AUDITOR POINT OF CARE TEST ENTER/EDIT O RDERABLES Final Result * POCT Influenza A manually resulted (08/30/2024 6:08 PM EST) [facility] Rapid Influenza A Ag Negative Negative, Indeterminate QC Media Lot # [id number] Lot# Expiration Date Swab Nasopharyngeal structure / Unknown 08/30/2024 6:[address] [facility] IT PROGRAM AUDITOR POINT OF CARE TEST ENTER/EDIT O RDERABLES Final Result * POCT Rapid COVID Ag (08/30/2024 6:08 PM EST) [facility] Rapid COVID Ag Negative QC Media Lot # [id number] Lot# Expiration Date Swab 08/30/2024 6:[address] [facility] IT PROGRAM AUDITOR POINT OF CARE TEST ENTER/EDIT O RDERABLES [...] documented as of this encounter Care Teams Didactic Instructor Relationship Specialty Start Date End Date Marbella Rodriguez FNP [address] [place] [address] PCP - General Family Medicine 03/05/22 documented as of this encounter
--- OUTSIDE RECORDS SUMMARY | 2024-09-16 11:18 | XMS_ITS | Encounter Summary ---
Author Organization [employer] Address 75 [facility] 7t [place] [address] Care Team Providers Care Water Taxi Captain Name Role Phone Marbella Rodriguez DUMPCART DRIVER Primary Care Provider [phone] Encounter Details Date Type Department Care Team ([facility] st Contact Info) Description 09/13/2024 Orders Only GENERIC EXTERNAL DATA DEPARTMENT Provider, Generic External Data Social History Tobacco Use Types Packs/Day Years [...] Description 10/20/2024 3:00 PM EDT Office Visit [facility] MEDICINE [address] [place] [address] Marbella Rodriguez FNP [address] [place] [address] documented as of this encounter Procedures Procedure Name Priority Date/Time Associated Diagnosis Comments CREATININE, SERUM Routine 09/13/2024 3:4 6 PM EDT UREA NITROGEN (BUN) Routine 09/13/2024 3 :46 PM EDT documented in this encounter Results * Creatinine, Serum (09/13/2024 3:46 PM EDT) Creatinine, Serum 0.96 0.5 - 1.4 mg/dL [facility] Estimated Glomerular Filt Rate 59 [facility] Comment:Chronic Kidney Disea se: Estimated GFR < 60 mL/min/1.42b7Kptlam Kidney Disease: Estimated GFR < 15 mL/min/1.73m2 09/13/2024 3:46 PM EDT 09/13/2024 3:46 PM EDT us Generic External Data Provider LAB BLOOD ORDERAB LES Final Result [facility] [address] [place] [address] [phone] * (ABNORMAL) BUN (Blood Urea Nitrogen) (09/13/2024 3:46 PM EDT) Urea Nitrogen (BUN) 18(H) 9 - 16 mg/dL [facility] 09/13/2024 3:46 PM EDT 09/13/2024 3:46 PM EDT us Generic External Data Provider LAB BLOOD ORDERAB LES Final Result [facility] [address] [place] [address] [phone] documented in this encounter Visit Diagnoses Not on filedocumented in this encounter Additional Health Concerns Assessment Noted Time PHQ-9 Depression Total Score: 6 05/23/20 23 4:38 PM EST documented as of this encounter Care Teams Water Taxi Captain Relationship Specialty Start Date End Date Marbella Rodriguez FNP [address] [place] [address] PCP - General Family Medicine 03/05/22 documented as of this encounter
--- OUTSIDE RECORDS SUMMARY | 2024-09-16 11:18 | XMS_ITS | Encounter Summary ---
Author Organization [employer] Address [address] [facility] 7 [place] [address] Care Team Providers Care Ram Press Operator Name Role Phone Marbella Rodriguez Primary Care Provider [phone] Reason for Visit * Reason Comments Med Refill Encounter Details Date Type Department Care Team (Late Contact Info) Description 12/14/2022 Refill [facility] [address] [place] [address] Marbella Rodriguez FNP [address] [place] [address] Routine health maintenance Social History Tobacco Use [...] 3:00 PM EDT Office Visit [facility] [address] [place] [address] Marbella Rodriguez FNP [address] [place] [address] documented as of this encounter Visit Diagnoses Diagnosis Routine health maintenance Unspecified examination documented in this encounter Care Teams Ram Press Operator Relationship Specialty Start Date End Date Marbella Rodriguez FNP [address] [place] [address] PCP - General Family Medicine 03/05/22 documented as of this encounter
--- OUTSIDE RECORDS SUMMARY | 2024-09-16 11:18 | XMS_ITS | Encounter Summary ---
Author Organization [employer] Address 75 [facility] 7t [place] [address] Care Team Providers Care Fruit Rancher Name Role Phone Marbella Rodriguez REWRITE EDITOR Primary Care Provider [phone] Encounter Details Date Type Department Care Team ([facility] st Contact Info) Description 09/02/2024 Orders Only [facility] External Provider, [facility] Social History Tobacco Use Types Packs/Day Years [...] Description 10/20/2024 3:00 PM EDT Office Visit [facility] [address] [place] [address] Marbella Rodriguez, DEVEN [address] [place] [address] documented as of this encounter Procedures Procedure Name Priority Date/Time Associated Diagnosis Comments US RENAL BI Routine 09/02/2024 3:50 PM EST documented in this encounter Results * US RENAL BI (09/02/2024 3:50 PM EST) Anatomical Region Laterality Modality Abdomen Ultrasound 09/02/2024 3:50 PM EST Narrative 09/02/2024 4:55 PM EST ? [facility] ?[address] ?[place] [address] ? Ultrasound Report ? Signed ? Patient: Canales,Destiny I ?MR#: [id number] ?? 8 ? : 1960 ?Acct:[id number] ? Age/Sex: 63 / F ?ADM Date: 02/27/25 ? Loc: HO.US ? Attending Dr: Nayla BROWN ? Ordering Physician: Nayla Dove ?? Date of Service: 09/02/24 ?? Procedure(s): US renal BI ?? Accession Number(s): [id number] ? cc: Nayla Dove; Marbella Rodriguez ? [...] DD/ 1550 ? TD/TT: 09/02/24 1604 ? Medical Lab Director: MSM ? Procedure Note Gin Weldon - 09/02/[address] [address] Ultrasound Report Signed Patient: Destiny Canales [facility]#: [id number] 8 : 1960cct:[id number] Age/Sex: 63 / FADM Date: 09/02/24 Loc: HO.US Attending Dr: Nayla BROWN Ordering Physician: Nayla Dove Date of Service: 09/02/24 Procedure(s): US renal BI Accession Number(s): [id number] cc: Nayla DoveP-BC; Marbella Rodriguez EXAMINATION: US [...] 09/02/24 1652 DD/ 1550 TD/TT: 09/02/24 1604 Medical Lab Director: RICHY [facility] External Provider IMG US PROCEDURES Final Result documented in this encounter Visit Diagnoses Not on filedocumented in this encounter Additional Health Concerns Assessment Noted Time PHQ-9 Depression Total Score: 6 05/23/20 23 4:38 PM EST documented as of this encounter Care Teams Fruit Rancher Relationship Specialty Start Date End Date Marbella Rodriguez FNP [address] [place] [address] PCP - General Family Medicine 03/05/22 documented as of this encounter
--- OUTSIDE RECORDS SUMMARY | 2024-09-16 11:18 | XMS_ITS | Clinical Summary ---
Author Organization [employer] Address [address] [facility] 7t [place] [address] Care Team Providers Care Needle Straightener Name Role Phone Marbella Rodriguez BRICK BAKER Primary Care Provider [phone] Allergies Active Allergy Reactions Criticality Noted Date Comments Acetaminophen Nausea Only 02/18/2012 Oxycodone Nausea Only 02/18/2012 Penicillin G 02/11/2013 Medications FREESTYLE LITE test stripIndications: Type 2 diabetes mellitus treated without insulin (CMS/[facility]) TEST BLOOD SUGAR TWICE DAILY 100 strip [...] bedtime. (Cholesterol) 90 tablet 3 025 Active simvastatin (Zocor) 20 MG tabletIndications :Other hyperlipidemia TAKE 1 TABLET BY MOUTH EVERY EVENING 90 tablet 3 024 2024 Discontinued ibuprofen 200 MG tabletIndications :Viral upper respiratory tract infection Take 1 tablet (200 mg) by mouth every 6 (six) hours if needed for mild pain for up to 7 days. 28 tablet 025 2024 Hospital, Clinic, or Other Facility Administered Medication [...] right kidney 09/07/2022 Overview (03/01/2024): -Followed by [facility]rology[facility]LENE -Ultrasound 09/01/23: IMPRESSION: LEFT KIDNEY: Normal RIGHT KIDNEY: Severe hydronephrosis, stable -Mar 2023: [facility] Urology. Renogram revealed left 100% functional and [...] from family and friends Previous referral for SOIL CONSERVATION TECHNICIAN placed, phone numbers provided today for patient/sister [...] Encounters Date Type Department Care Team Description 09/13/2024 Orders Only GENERIC EXTERNAL DATA DEPARTMENT Provider, Generic External Data 09/02/2024 Orders Only [facility] External Provider, [facility] 08/30/2024 4:40 PM EST Office Visit [facility] [address] [place] [address] Belkys Ferrell NP Sore throat (Primary Dx); Viral upper respiratory tract infection; Elevated blood pressure reading in office with diagnosis of hypertension 08/30/2024 Refill [facility] [address] [place] [address] Marbella Rodriguez FNP Other hyperlipidemia 07/28/2024 11:15 AM EST Office Visit [facility] [address] [place] [address] Marbella Rodriguez FNP Type 2 diabetes mellitus without complication, without long-term current use of insulin ([facility]) (Primary Dx); Routine health maintenance; Pelvic pain; Primary hypertension; Kidney stone 07/28/2024 Travel 07/27/2024 Telephone [facility] [address] [place], [place] [phone] Boby Gutierrez MA Chart Prep 07/05/2024 Telephone [facility] [address] [place] [address] Marbella Rodriguez FNP Results 07/01/[address] [address] Marbella Rodriguez FNP from Last 3 Months Immunizations Name Administration [...] 3:00 PM EDT Office Visit [facility] [address] [place] [address] Marbella Rodriguez, BRICK BAKER [address] [place] [address] Health Maintenance Due Date Last Done Comments [...] (BUN) Routine 09/13/2024 3 :46 PM EDT US RENAL BI Routine 09/02/2024 3:50 PM [...] Recently Relevant to Health Maintenance Results * Creatinine, Serum (09/13/2024 3:46 PM EDT) Creatinine, Serum 0.96 0.5 - 1.4 mg/dL [facility] Estimated Glomerular Filt Rate 59 [facility] Comment:Chronic Kidney Disea se: Estimated GFR < 60 mL/min/1.55m9Bwezkj Kidney Disease: Estimated GFR < 15 mL/min/1.73m2 09/13/2024 3:46 PM EDT 09/13/2024 3:46 PM EDT us Generic External Data Provider LAB BLOOD ORDERAB LES Final Result Performing Organization Address [facility] de Phone Number [facility] [address] [place], [place] [phone] * (ABNORMAL) BUN (Blood Urea Nitrogen) (09/13/2024 3:46 PM EDT) Urea Nitrogen (BUN) 18(H) 9 - 16 mg/dL [facility] 09/13/2024 3:46 PM EDT 09/13/2024 3:46 PM EDT us Generic External Data Provider LAB BLOOD ORDERAB LES Final Result Performing Organization Address [facility] de Phone Number [facility] [address] [place], [place] [phone] * US RENAL BI (09/02/2024 3:50 PM EST) Anatomical Region Laterality Modality Abdomen Ultrasound 09/02/2024 3:50 PM EST Narrative 09/02/2024 4:55 PM EST ? [facility] ?[address] ?[place] [address] ? Ultrasound Report ? Signed ? Patient: Canales,Destiny I ?MR#: [id number] ?? 8 ? : 1960 ?Acct:[id number] ? Age/Sex: 63 / F ?ADM Date: 02/27/25 ? Loc: HO.US ? Attending Dr: Nayla BROWN ? Ordering Physician: Nayla Dove ?? Date of Service: 09/02/24 ?? Procedure(s): US renal BI ?? Accession Number(s): [id number] ? cc: Nayla Dove; Marbella Rodriguez ? [...] DD/ 1550 ? TD/TT: 09/02/24 1604 ? Mechanical Adjuster: MSM ? Procedure Note Gin Weldon - 09/02/[address] [address] Ultrasound Report Signed Patient: Destiny Canales [facility]#: [id number] 8 : 1960cct:[id number] Age/Sex: 63 / FADM Date: 09/02/24 Loc: HO.US Attending Dr: Nayla BROWN Ordering Physician: Nayla Dove Date of Service: 09/02/24 Procedure(s): US renal BI Accession Number(s): [id number] cc: Nayla Dove BRICK BAKER-BC; Marbella Rodriguez BRICK BAKER EXAMINATION: US RETROPERITONEAL LIMITED (RENAL ONLY) CLINICAL [...] Nicolas Epps MD 09/02/2024 04:52 PM EST RP Dictated By: Nicolas Epps MD Signed By: <Electronically signed by Nicolas Epps MD in OV> 09/02/24 1652 DD/ 1550 TD/TT: 09/02/24 1604 Mechanical Adjuster: [facility] External Provider IMG US PROCEDURES Final Result * POCT Rapid COVID Ag (08/30/2024 6:08 PM EST) Pathologist [facility] Rapid COVID Ag Negative QC Media Lot # [id number] Lot# Expiration Date [id number] Swab 08/30/2024 6:08 PM EST Belkys Ferrell REC THERAPIST POINT OF CARE TEST ENTER/EDIT O RDERABLES Final Result * POCT Influenza B manually resulted (08/30/2024 6:08 PM EST) [facility] Rapid Influenza B Ag Negative Negative, Indeterminate QC Media Lot # [id number] Lot# Expiration Date Swab 08/30/2024 6:08 PM EST Result [facility] POINT OF CARE TEST ENTER/EDIT O RDERABLES Final Result * POCT Influenza A manually resulted (08/30/2024 6:08 PM EST) [facility] Rapid Influenza A Ag Negative Negative, Indeterminate QC Media Lot # [id number] Lot# Expiration Date Swab Nasopharyngeal structure / Unknown 08/30/2024 6:08 PM EST Result [facility] POINT OF CARE TEST ENTER/EDIT O RDERABLES Final Result * POCT rapid strep A manually resulted (08/30/2024 6:08 PM EST) [facility] Rapid Strep A Screen Negative Negative, None Detected QC Media Lot # [id number] Lot# Expiration Date Swab 08/30/2024 6:08 PM EST Result [facility] POINT OF CARE TEST ENTER/EDIT O RDERABLES Final Result * (ABNORMAL) POCT HGB A1C (03/01/2024 10:02 AM EDT) [facility] Hemoglobin A1C 6.3(A) 4.0 - 6.0 % QC Media Lot # [id number] Lot# Expiration Date Blood 03/01/2024 10:0 2 AM EDT Result [facility] us Marbella Rodriguez [facility] POINT OF CARE TEST ENTER/EDIT ORDERABLES Final Result * Referral to Podiatry (11/04/2023) Result [facility] Marbella Rodriguez [facility] OUTPATIENT REFERRAL ORDERABLES Final Result * BI Mammogram Screening Tomosynthesis Bilateral (06/25/2023 3:15 PM EST) Anatomical Region Laterality Modality Breast Bilateral Mammography 06/25/2023 3:15 PM EST Narrative 07/04/2023 10:27 AM EST ? [facility] [place] ? [address] ?[place], [place] [address] ? Mammography Report ? Signed ? Patient: Destiny Canales I ?MR#: [id number] ?? 8 ? : 1960 ?Acct:[id number] ? Age/Sex: 62 / F ?ADM Date: // ? Loc: HO.MAMMO ? Attending Dr: Marbella Rodriguez BRICK BAKER ? Ordering Physician: Marbella Rodriguez BRICK BAKER ?Results: 2Benig ?? n Findings ? Date of Service: 06/25/ ?Follow Up: 1 Year From Orig ?? inal Mammogram ? Procedure(s): MM tomosynthesis screening BI ?? Accession Number(s): [id number] ? cc: Marbella Rodriguez BRICK BAKER ? EXAMINATION: ?? MM SCREENING DIGITAL BREAST [...] 1023 ? DD/ 1515 ? TD/TT: ? Mechanical Adjuster: ? Procedure Note Gin Weldon - 07/04/2023 [facility] [address] [place] [address] Mammography Report Signed Patient: Destiny Canales IMR#: [id number] 8 : 1960cct:[id number] Age/Sex: 62 / FADM Date: 06/25/23 Loc: HO.MAMMO Attending Dr: Marbella Rodriguez BRICK BAKER Ordering Physician: Marbella Rodriguez FNPResults: 2Benig n Findings Date of Service: 06/25/23Follow Up: 1 Year From Orig inal Mammogram Procedure(s): MM tomosynthesis screening BI Accession Number(s): [id number] cc: Marbella Rodriguez BRICK BAKER EXAMINATION: MM SCREENING DIGITAL BREAST TOMOSYNTHESIS, BILATERAL [...] in OV> 07/04/23 1023 DD/ 1515 TD/TT: Mechanical Adjuster: Marbella Rodriguez BRICK BAKER IMG BI PROCEDURES Final Result * HIV-1 RNA, Quantitative, PCR with Reflex to Genotype (10/09/2022 8:52 AM EDT) HIV 1 RNA, QN PCR Not Detected Copies/mL [facility] [place] HIV 1 RNA, QN PCR Not Detected Log cps/mL [facility] [place] Comment: Reference Range: ?Not Detected ? copies/mL [...] RETURN FOR COLLECTION. FASTING: YES Marbella Rodriguez [facility] LAB BLOOD ORDERABLES Final Res ult Performing Organization Address [facility]/ZIP Co de Phone Number [address], [facility] [place] [address] [facility] [address] [facility] [place] [address] * Hepatitis C Antibody with Reflex to HCV, RNA, Quantitative, Real-Time PCR (10/09/2022 8:52 AM EDT) [facility] Hepatitis C Antibody NON-REACT WILBER NON-REACT WILBER [facility] [place] Index 0.09 <1.00 [facility] [place] [facility] Comment: HCV antibody was non-reactive. There is no laboratory evidence of HCV infection. In most cases, no further action is required. However, if recent HCV exposure is suspected, a test for HCV RNA (test code 23119) is suggested. For additional information please refer to http://education.Allovue/faq/YVE82b1 (This link is being provided for informational/ educational purposes only.) Blood Venous blood specimen / Unknown 10/09/2022 8:52 AM EDT 10/09/2022 8:53 AM EDT Narrative [facility] - 10/11/2022 8:59 PM EDT FASTING:YES PATIENT UNABLE TO VOID; ADVISED TO RETURN FOR COLLECTION. FASTING: YES Marbella Rodriguez [facility] LAB BLOOD ORDERABLES Final Res ult Performing Organization Address [facility]/ZIP Co de Phone Number [address], [facility] [place] [address] [facility] [place] [address] [address] * (ABNORMAL) Lipid Panel, Standard (10/09/2022 8:52 AM EDT) [facility] Cholesterol, Total 172 <200 mg/dL [facility] [place] [facility] HDL Cholesterol 58 > OR = 50 mg/dL [facility] [place] [facility] Triglycerides 59 <150 mg/dL [facility] [place] [facility] LDL Cholesterol 100(H) mg/dL (calc) [facility] [place] [facility] Comment: Reference range: <100 Desirable range <100 mg/dL for primary prevention; ?? <70 mg/dL for patients with CHD or diabetic patients with > or = 2 CHD risk factors. LDL-C is now calculated using the Eliseo calculation, which is a validated novel method providing better accuracy than the Friedewald equation in the estimation of LDL-C. Elmer SS et al. BETTINA. 2013;310(19): 4588-9460 (http://education.Shoptimise/faq/GUB420) Chol/HDLC Ratio 3.0 <5.0 (calc) [facility] [place] [facility] Non-HDL Cholesterol 114 <130 mg/dL (calc) [facility] [place] [facility] Comment: For patients with diabetes plus 1 major ASCVD risk factor, treating to a non-HDL-C goal of <100 mg/dL (LDL-C of <70 mg/dL) is considered a therapeutic option. Blood Venous blood specimen / Unknown 10/09/2022 8:52 AM EDT 10/09/2022 8:53 AM EDT Narrative [facility] - 10/11/2022 8:59 PM EDT FASTING:YES PATIENT UNABLE TO VOID; ADVISED TO RETURN FOR COLLECTION. FASTING: YES Marbella Rodriguez [facility] BLOOD ORDERABLES Final Res ult [facility] [address], [place] [address] [facility] [place] [facility] [address] [place] [address] * HPV mRNA E6/E7 w/Reflex to HPV Genotypes 16, 18/45 (09/26/2022 3:05 PM EDT) [facility] HPV nRNA E6/E7 Not Detected Not Detected [facility] Comment:Methodology: Transcr iption-Mediated AmplificationThis assay detects E6/E7 viral messenger RNA (mRNA) from 14high-risk HPV types (16,18,31,33,35,39,45,51,52,56,58,59,66,68).Cervical sources are required for HPV testing.If a vaginal source from a patient who has had atotal hysterectomy with removal of cervix wassubmitted, please contact the testing laboratoryfor alternative testing options.For additional information, please refer tohttp://education.Allovue/faq/ZZL596g2(This link if provided for information/educational purposes only.)THIS TEST WAS PERFORMED AT:[facility] [place] [phone] KLEIN MD HPV mRNA E6/E7 [facility] HPV 16 RNA [facility] HPV 18/45 RNA [facility] 09/26/2022 3:05 PM EDT 09/27/2022 9:45 AM EDT [facility] External Provider LAB CYT OLOGY ORDERABLES Final Result [facility] [address] [place] [address] [phone] * Pap Smear (09/26/2022 3:05 PM EDT) 09/26/2022 3:05 PM EDT 09/27/2022 9:45 AM EDT Narrative [facility] - 10/07/2022 12:02 PM EDT ----- ------- Name: Destiny Canales I ?Age/Sex: 62/F ? : 1960 Unit#: [id number] ?? Attend Dr: Holly Shook CNM ?Re09/26/22 ?Status: DEP REF ? Location: HO.LNP ?Disch: ? ----- ------- SPEC : [id number] ? RECD: 09/27/22 ? STATUS: ??SOUT ? REQ NUM: [id number] ? DAISHA: 09/26/22-1501 ? SUBM DR: Holly Shook CNM ? ENTERED: ??09/27/22 ?SP TYPE: Pap Smr ?OTHR DR: Marbella Rodriguez BRICK BAKER ? ORDERED: ??Pap Smear ? Interpretation ?? Satisfactory for evaluation. ?? Negative for intraepithelial lesion or malignancy. ? HPV mRNA E6/E7: ?NOT DETECTED ? This assay detects E6/E7 viral messenger RNA (mRNA) from 14 high-risk HPV types (16, 18, ?? 31, 33, 35, 39, 45, 51, 52, 56, 58, 59, 66, 68) ? HPV testing performed by [facility], [place], [place]. ??See reference laboratory ?? portion of the EMR for entire report. ?Clinical Information LMP: Menopausal Previous PAP test: 2021, WNL ? Material Received ?? ThinPrep-Cervical Copies To: ?? Holly Shook CNM ?? [address] [facility] ?? [place] [address] ?? [phone] ?? Marbella Rodriguez BRICK BAKER ?? [address] [facility] ?? [place] [address] ?? [phone] ----- ------- Signed (signature on file) Yahaira Lopes Leoncio 10/07/22 1202 ? ----- ------- ? END OF REPORT ? [facility] External Provider LAB CYT OLOGY ORDERABLES Final Result Performing Organization Address City/[facility]/ZIP Co de Phone Number [facility] [address] [place] [address] [phone] * ALBUMIN, RANDOM URINE W/CREATININE (04/27/2021 10:04 AM EDT) Microalbumin Urine 2.3 See Note: mg/dL [facility] Comment: Reference Range: ?? Reference [...] Creatinine, Urine 102 20 - 275 mg/dL [facility] 04/27/2021 10:0 4 AM EDT Keli Emery REC THERAPIST LAB URINE ORDERABLES Final Res ult Performing Organization Address City/[facility]/ZIP Co de Phone Number [facility] [address] * (ABNORMAL) Colonoscopy (07/27/2020) Colonoscopy Abnormal(A ) Normal Narrative Marbella Rodriguez FNP - 07/27/2020 [facility] - Dr. Mae. Plan: 5 year follow up Historical Provider HEALTH MAINTENANCE Final Result from Last 3 Months or Most Recently Relevant to Health Maintenance [facility] Care Teams Needle Straightener Relationship Specialty Start Date End Date Marbella Rodriguez FNP [address] [place] [address] PCP - General Family Medicine 03/05/22
--- OUTSIDE RECORDS SUMMARY | 2024-09-16 11:18 | XMS_ITS | Encounter Summary ---
Author Organization [employer] Address [address] [facility] 7t [place] [address] Care Team Providers Care Manifest/Order Organizer Print Orders Name Role Phone Marbella Rodriguez Primary Care Provider [phone] Reason for Visit * Reason Onset Date Comments Results 08/05/2023 Encounter Details Date Type Department Care Team ([facility] st Contact Info) Description 08/05/2023 Telephone [facility] [address] [place] [address] Marbella Rodriguez FNP [address] [place] [address] Results Social History Tobacco Use Types Packs/Day [...] results: mammogram Date when done: N/A Facility: [facility] documented in this encounter Plan of Treatment Upcoming Encounters Date Type Department Care Team (Late st Contact Info) Description 10/20/2024 3:00 PM EDT Office Visit [facility] [address] [place] [address] Marbella Rodriguez FNP [address] [place] [address] documented as of this encounter Visit Diagnoses Not on filedocumented in this encounter Additional Health Concerns Assessment Noted Time PHQ-9 Depression Total Score: 6 05/23/20 23 4:38 PM EST documented as of this encounter Care Teams Manifest/Order Organizer Print Orders Relationship Specialty Start Date End Date Marbella Rodriguez FNP [address] [place] [address] PCP - General Family Medicine 03/05/22 documented as of this encounter
--- OUTSIDE RECORDS SUMMARY | 2024-09-16 11:18 | XMS_ITS | Encounter Summary ---
Author Organization [employer] Address [address] [facility] 7t [place] [address] Care Team Providers Care Sales Operations Lead Name Role Phone Marbella Rodriguez Primary Care Provider [phone] Reason for Visit * Reason Comments Med Refill Encounter Details Date Type Department Care Team ([facility] st Contact Info) Description 06/10/2023 Refill [facility] [address] [place] [address] Marbella Rodriguez FNP [address] [place] [address] Routine health maintenance Social History Tobacco Use [...] 3:00 PM EDT Office Visit [facility] [address] [place] [address] Marbella Rodriguez FNP [address] [place] [address] documented as of this encounter Visit Diagnoses Diagnosis Routine health maintenance Unspecified examination documented in this encounter Additional Health Concerns Assessment Noted Time PHQ-9 Depression Total Score: 6 05/23/20 23 4:38 PM EST documented as of this encounter Care Teams Sales Operations Lead Relationship Specialty Start Date End Date Marbella Rodriguez FNP [address] [place] [address] PCP - General Family Medicine 03/05/22 documented as of this encounter
--- OUTSIDE RECORDS SUMMARY | 2024-09-16 11:18 | XMS_ITS | Encounter Summary ---
Author Organization [employer] Address [address] [facility] 7t [place] [address] Care Team Providers Care Paperhanger Pipe Name Role Phone Marbella Rodriguez Primary Care Provider [phone] Encounter Details Date Type Department Care Team ([facility] Contact Info) Description 07/10/2022 Orders Only [facility] [address] [place], [place] [phone] Colleen Conteh LPN Social History Tobacco Use [...] 10/20/2024 3:00 PM EDT Office Visit [facility] [address] [place] [address] Marbella Rodriguez FNP [address] [place] [address] documented as of this encounter Visit Diagnoses Not on filedocumented in this encounter Care Teams Paperhanger Pipe Relationship Specialty Start Date End Date Marbella Rodriguez FNP [address] [place] [address] PCP - General Family Medicine 03/05/22 documented as of this encounter
== END 2024-09-16 10:12 | disposition home or self-care (01) ==
LOC: HO.HUSH 09:32
PROVIDERS: PCP Registered Nurse; Visit Provider Nurse Practitioner Family
DX: N13.30 Unspecified hydronephrosis (principal); N26.1 Atrophy of kidney (terminal); N20.0 Calculus of kidney; Z13.9 Encounter for screening, unspecified
CPT/HCPCS: 99213

== ENCOUNTER → 2024-09-16 09:32 | Outpatient (BNVA) | payer MEDICAID, SELFPAY | PROVIDERS: PCP Registered Nurse; Visit Provider Nurse Practitioner Family | DX: N26.1 Atrophy of kidney (terminal) (principal); N13.30 Unspecified hydronephrosis; N20.0 Calculus of kidney | CPT/HCPCS: 81003; 99212 ==

== ENCOUNTER 2025-01-03 14:59 | Outpatient (REF) | payer MEDICAID, SELFPAY ==
--- OUTSIDE RECORDS SUMMARY | 2025-01-03 15:26 | XMS_ITS | Encounter Summary ---
Author Organization [employer] Address 75 [facility] 7t [place] [address] Care Team Providers Care Equip Maint Eng Name Role Phone Marbella Rodriguez Primary Care Provider [phone] Reason for Visit * Reason Comments Med Refill Encounter Details Date Type Department Care Team ([facility] st Contact Info) Description 12/27/2024 Refill [facility] MEDICINE [address] [place] [address] Marbella Rodriguez FNP [address] [place] [address] Social History Tobacco Use Types Packs/Day Years [...] Answer Date Recorded Patient Health Questionnaire-9 Score 8 10/20/2024 Patient Health Questionnaire-9 Score 8 10/20/2024 Last PHQ-9: Questionnaire Data Not on file 0 10/20/2024 Housing Stability Answer Date Recorded What is your housing situation today? I have monse mcknight 10/20/[address] you li ve. Do you have problems with any of the following? None of the above 10/20/2024 Food Insecurity Answer Date Recorded Within the past 12 months, y ou worried that your food would run out before you got money to buy more: Never True 10/20/2024 Within the past 12 months,th e food you bought just didn't last and you didn't have enough money to get more: Never True Transportation Answer Date Recorded In the past 12 months, has l ack of transportation kept you from medical appts, meetings, work or from getting things needed for daily living? No 10/20/2024 Utilities Answer Date Recorded In the past 12 months, has t he electric, gas, oil or water company threatened to shut off services in your home? No 10/20/2024 Depression Answer Date Recorded Patient Health Questionnaire-2 Score 2 10/20/2024 Internet Access Answer Date Recorded Internet Access Q1 Yes 10/20/2024 Internet Access Q2 Not on file 10/20/2024 Comments No Sex and Gender Information Value Date Recorded Sex Assigned at Female 05/06/2022 10:14 AM EDT Legal Sex Female 10:14 AM EDT Gender Identity Female 09/07/2022 3:02 PM EST Sexual Orientation Choose not to disclose 2021 10:14 AM EDT documented as of this encounter Plan of Treatment Not on file documented as of this encounter Visit Diagnoses Not on filedocumented in this encounter Additional Health Concerns Assessment Noted Time PHQ-9 Depression Total Score: 8 10/21/19 25 3:18 PM EDT documented as of this encounter Care Teams Equip Maint Eng Relationship Specialty Start Date End Date Marbella Rodriguez FNP [address] [place] [id number] PCP - General Family Medicine 03/05/22 documented as of this encounter
== END 2025-01-03 15:00 | disposition home or self-care (01) ==
LOC: HO.MAMMO 14:59
PROVIDERS: PCP Registered Nurse; Visit Provider Registered Nurse
DX: Z12.31 Encounter for screening mammogram for malignant neoplasm of breast (principal)
CPT/HCPCS: 77063; 77067

== ENCOUNTER → 2025-01-03 15:45 | Outpatient (BNV) | payer MEDICAID, SELFPAY | PROVIDERS: PCP Registered Nurse; Visit Provider Internal Medicine | DX: Z12.31 Encounter for screening mammogram for malignant neoplasm of breast (principal) | CPT/HCPCS: 77063; 77067 ==

== ENCOUNTER 2025-01-04 14:06 | Outpatient (REF) | payer MEDICAID, SELFPAY ==
--- OUTSIDE RECORDS SUMMARY | 2025-01-04 16:19 | XMS_ITS | Encounter Summary ---
Author Organization [employer] Address 75 [facility] 7t [place] [address] Care Team Providers Care Production Trainer Name Role Phone Marbella Rodriguez Primary Care Provider [phone] Encounter Details Date Type Department Care Team (Late st Contact Info) Description 06/06/2022 Orders Only [facility] MEDICINE [address] [place] [address] Marbella Rodriguez FNP [address] [place], [place] [id number] Social History Tobacco Use Types Packs/Day Years [...] on filedocumented in this encounter Care Teams Production Trainer Relationship Specialty Start Date End Date Marbella Rodriguez FNP [address] [place] [address] PCP - General Family Medicine 03/05/22 documented as of this encounter
[2025-01-05 07:53] LABS: Syphilis Screen Nonreactive (Nonreactive)
[2025-01-05 08:21] LABS: HBc Num1 1.01 S/CO (0.00-0.79); HIV Num 1 0.07 S/CO (0.00-0.99); ~HepC Num1 0.18 S/CO (0.00-0.79); ~Hepatitis C Antibody Nonreactive (Nonreactive)
[2025-01-05 09:19] LABS: HBc Num2 0.99 S/CO
[2025-01-05 09:20] LABS: HBc Num3 1.03 S/CO
[2025-01-06 06:53] LABS: Hepatitis B Core Antibody IgM NON-REACTIVE (NON-REACTIVE)
== END 2025-01-04 14:07 | disposition home or self-care (01) ==
LOC: HO.LAB 14:06
PROVIDERS: PCP Registered Nurse; Visit Provider Advanced Practice Midwife
DX: Z01.419 Encounter for gynecological examination (general) (routine) without abnormal findings (principal); R10.2 Pelvic and perineal pain; R30.0 Dysuria; Z20.2 Contact with and (suspected) exposure to infections with a predominantly sexual mode of transmission; Z78.0 Asymptomatic menopausal state
CPT/HCPCS: 36415; 81002; 81515; 86704; 86705; 86780; 86803; 87086; 87389; 87491; 87591; 99212; 99396; 99459

== ENCOUNTER 2025-01-04 14:06 | Outpatient (AMB) | payer MEDICAID, SELFPAY ==
--- NOTE | 2025-01-04 15:03 | MHC.OFFVIS ---
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 Intake Note: c/o of dysuria and burning urination for a few days Scallop Cutter Machine Required: Yes Scallop Cutter Machine Language: Pulmonary Physician Services: Scallop Cutter Machine Present (in person) Scallop Cutter Machine Name: Josette STRANGE Information Interpreted: non-clinical & clinical Knuckler: Knuckler Present (Josette STRANGE) Accompanied by: Mother Allergies acetaminophen (Percocet) Allergy (Severe, Verified 01/04/25 15:08) edema morphine (MORPHINE) Allergy (Intermediate, Verified 01/04/25 15:08) HIVES/REDNESS TO FACE oxycodone (From PERCOCET) Allergy (Intermediate, Verified 01/04/25 15:08) RASH Penicillins (PENICILLINS) Allergy (Intermediate, Verified 01/04/25 15:08) RASH WITH HIVES Post menopausal: Yes HPI Comments Details: Patient is a postmenopausal woman presenting for her 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 She is doing well with supervising producer concerns: Has frequency and burning, pain with the intimacy, urine dip-negative. Denies any vaginal dryness or irritation. Attempting to eat a healthy diet with calcium and vitamin D and stays active with exercise. Last pap smear; 2022, negative. Last mammogram; pending read. Colonoscopy is UTD. Denies any family history of breast, ovarian or colon cancer. [facility] Medical History BRENT I (cervical intraepithelial neoplasia I) Tubular adenoma Hx of renal calculi HTN (hypertension) Diabetes mellitus Surgical History History of esophagogastroduodenoscopy (EGD) H/O colonoscopy Hx of dilation and curettage Hx of cystoscopy History of bilateral carpal tunnel release Hx of cholecystectomy Hx of section Family History Father Diabetes Heart problem Hypercholesteremia Mother HTN (hypertension) Diabetes H/O heart surgery Blood clot in vein Social History Household Members: Spouse Housing: Apartment Alcohol intake: former Comment: pt states tripped down the stairs Patient Tobacco Use Status: Never used Tobacco Current occupational status: unemployed Sexual orientation: Straight/Heterosexual Gender identity: Female Female Reproductive History Menstrual Total pregnancies: 2 Full term: 1 Number of Living Children: 1 Ab spontaneous: 1 Date of last pap smear: 09/27/22 History of abnormal pap smear: Yes (2020 brent 1) Date of Mammogram: 01/03/25 Review of Systems Const All systems reviewed & are unremarkable except as noted in HPI and below Reports as per HPI Eyes Reports no additional complaints ENT Reports no additional complaints Card Reports no additional complaints Resp Reports no additional complaints GI Reports as per HPI and Reports no additional complaints Reports as per HPI Musc Reports no additional complaints Skin/Breast Reports as per HPI Neuro Reports no additional complaints Psych Reports no additional complaints Endo Reports no additional complaints Jayce/Lymph Reports no additional complaints Aller/Immun Reports no additional complaints Physical Exam Vital Signs: Last Vital Signs BP 130/70 01/04/25 15:06 BMI result Body Mass Index 22.7 Const General: cooperative, healthy appearing, no acute distress, well developed and alert Orientation/consciousness: patient oriented x3 HEENT Head: Yes normal to inspection Eyes General: appearance normal, both eyes and all related structures Neck Neck: Yes normal visual inspection Thyroid: Thyroid normal Chest Chest palpation & inspection: normal inspection of the chest and other (no puckering, dimpling, peau de orange, retraction, discharge, masses) Breast/axilla inspection: normal inspection of the breasts Breast/axilla palpation: normal palpation of the breasts Resp Effort & Inspection: normal respiratory effort GI Inspection: Yes normal to inspection Palpation (GI): Soft to palpation Rectal Exam - Female: deferred General: Yes bladder normal to palpation External Female Exam: normal external appearance and normal appearance of the urethra Speculum Exam - Vagina: normal appearance of the vagina, normal palpation, normal vaginal discharge and vagina atrophic Speculum Exam - Cervix: normal appearance of the cervix, normal palpation and Other cervical findings present (Post LEEP appearance) Bimanual exam- vagina & uterus: normal bimanual exam, normal palpation, uterine size normal, bladder normal to palpation, normal palpation and non-tender Bimanual Exam- Adnexa, other: no masses Skin General skin exam: no rashes or lesions noted Rashes: no rashes Neuro General: patient oriented x3 Cognition (Neuro): normal cognition Extrem General: Yes normal to inspection Psych Attitude: cooperative Thought process: Normal thought process present Results AMB Urinalysis Dipstick UR Leukocytes Trace Last Edit by Josette Lucia CMA on 01/04/25 15:23 UR Nitrite Negative Last Edit by Josette Lucia, MOBILE HEAVY EQUIPMENT MECHANIC on 01/04/25 15:23 UR Urobilinogen Normal Last Edit by Josette Lucia, MOBILE HEAVY EQUIPMENT MECHANIC on 01/04/25 15:23 UR Protein Negative Last Edit by Josette Lucia, MOBILE HEAVY EQUIPMENT MECHANIC on 01/04/25 15:23 UR Ph 6.0 Last Edit by Josette Lucia, MOBILE HEAVY EQUIPMENT MECHANIC on 01/04/25 15:23 UR Blood Negative Last Edit by Josette Lucia, MOBILE HEAVY EQUIPMENT MECHANIC on 01/04/25 15:23 UR Specific [place] 1.010 Last Edit by Josette Lucia, MOBILE HEAVY EQUIPMENT MECHANIC on 01/04/25 15:23 UR Ketone Negative Last Edit by Josette Lucia, MOBILE HEAVY EQUIPMENT MECHANIC on 01/04/25 15:23 UR Bilirubin Negative Last Edit by Josette Lucia, MOBILE HEAVY EQUIPMENT MECHANIC on 01/04/25 15:23 UR Glucose Negative Last Edit by Josette Lucia, MOBILE HEAVY EQUIPMENT MECHANIC on 01/04/25 15:23 Results Reviewed Results Reviewed: Laboratory Last Values Urine pH (Clinic) 6.0 01/04/25 15:21 Specific [place] (Clinic) 1.010 01/04/25 15:21 Ur Protein (Clinic) Negative 01/04/25 15:21 Ur Ketones (Clinic) Negative 01/04/25 15:21 Urine Blood (Clinic) Negative 01/04/25 15:21 Urine Nitrite Negative 01/04/25 15:21 Urine Bilirubin (Clinic) Negative 01/04/25 15:21 Urobilinogen (Clinic) Normal 01/04/25 15:21 Leukocyte Esterase (Clinic) Trace 01/04/25 15:21 Urine Glucose (Clinic) Negative 01/04/25 15:21 Assessment & Plan Assessment & Plan (1) Encounter for well woman exam with routine gynecological exam: Code(s): Z01.419 - Encounter for gynecological examination (general) (routine) without abnormal findings Category: Medical Plan: Discussed: Current recommendations for pap smears per ASCCP guidelines. Breast awareness, periodic self breast exams and yearly mammogram. Maintain a healthy lifestyle, well balanced diet including Calcium 1,200 mg and Vitamin D 600 IU daily, and routine exercise. Use of Replens and lubricants. Contact the office with any postmenopausal bleeding. Patient verbalizes understanding and agrees to the plan of care. She was given opportunity to ask questions and all questions were answered to the best of my ability. RTO in 1 year for annual supervising producer exam. This note is constructed using voice recognition software. While every effort has been made to ensure accuracy, cashier wrapper errors may have been included. (2) Pelvic pain: Code(s): R10.2 - Pelvic and perineal pain Category: Medical Plan GC chlamydia and BV panel obtained. Pelvic ultrasound, follow up pending test results in person. UA sent to the lab for culture. Advised to hydrate well mostly water. Total time I personally spent on visit and management today: ?20 minutes. Time spent included review of pertinent office notes in the electronic health record; review of laboratory and imaging results; review of personal family medical history; performing physical exam; discussing diagnosis and plan of care with the patient; documenting the encounter in the EMR.The patient expressed understanding and agreement with the plan of care. All of her questions and concerns were addressed to the best of my ability. Orders: Orders Bacterial Vaginosis Panel Today R10.2 - Pelvic and perineal pain HIV Ab/Ag Today Z20.2 - Contact with and (suspected) exposure to infections with a predominantly sexual mode of transmission Syphilis Screen Today Z20.2 - Contact with and (suspected) exposure to infections with a predominantly sexual mode of transmission CT NG by PCR Vag/Cerv Today R10.2 - Pelvic and perineal pain Urine Culture Today R10.2 - Pelvic and perineal pain AMB Urinalysis Dipstick Today R30.0 - Dysuria US pelvic and transvaginal Today R10.2 - Pelvic and perineal pain Hepatitis C Antibody Reflex Today Z20.2 - Contact with and (suspected) exposure to infections with a predominantly sexual mode of transmission Hepatitis B Core Antibody Today Z20.2 - Contact with and (suspected) exposure to infections with a predominantly sexual mode of transmission Coding Level of Care Code Est Pt Level 2 (30795) Est Pt Prev Care 40-64y(68657) Diagnoses Encounter for well woman exam with routine gynecological exam Z01.419 Pelvic pain R10.2
[2025-01-04 15:06] VITALS: BP 130/70; BMI 22.7
== END 2025-01-04 16:12 | disposition home or self-care (01) ==
LOC: HO.HWS 14:06
PROVIDERS: PCP Registered Nurse; Visit Provider Advanced Practice Midwife
DX: Z01.419 Encounter for gynecological examination (general) (routine) without abnormal findings (principal); R10.2 Pelvic and perineal pain; R30.0 Dysuria
CPT/HCPCS: 99212; 99396; 99459

== ENCOUNTER 2025-01-04 15:42 | Outpatient (REF) | payer MEDICAID, SELFPAY ==
[2025-01-05 13:41] LABS: CT PCR NOT DETECTED (Not Detect.); NG PCR NOT DETECTED (Not Detect.)
[2025-01-05 14:12] LABS: Bacterial Vaginosis PCR POSITIVE (Negative); Candida Group PCR NOT DETECTED (Not Detect); Candida glab krusei PCR NOT DETECTED (Not Detect); Trichomonas vaginalis PCR NOT DETECTED (Not Detect)
== END 2025-01-04 15:43 | disposition home or self-care (01) ==
LOC: HO.LNP 15:42
PROVIDERS: Visit Provider Advanced Practice Midwife
DX: Z13.89 Encounter for screening for other disorder (principal)
CPT/HCPCS: 81515; 87086; 87491; 87591

== ENCOUNTER 2025-03-08 13:52 | Outpatient (REF) | payer MEDICAID, SELFPAY ==
--- NOTE | ~2025-03-08 | US_ITS ---
CLINICAL HISTORY: N13.30 - Unspecified hydronephrosis US of kidneys Comparison: US/SR - US KIDNEY BILATERAL - 09/02/24 15:58 EST Findings: Right kidney is not well seen due to limited acoustic window, enlarged due to severe chronic hydronephrosis, nearly indiscernible renal parenchyma, no obvious calculus or mass is seen. Several customer development representative static sonographic images of the left kidney were obtained and submitted for review, please note that not entire left kidney is included on the available images, the visualized left kidney appears normal, 11.7 cm in length, no calculus, hydronephrosis or focal lesion. No abnormal vascular flow. Impression: 1. Unchanged severe right hydronephrosis. 2. The visualized left kidney is normal. This document has been electronically signed by: Sujatha Garcia MD on 03/09/2025 10:07:59
== END 2025-03-08 13:53 | disposition home or self-care (01) ==
LOC: HO.US 13:52
PROVIDERS: PCP Registered Nurse; Visit Provider Nurse Practitioner Family
DX: N20.0 Calculus of kidney (principal); N13.30 Unspecified hydronephrosis
CPT/HCPCS: 76775

== ENCOUNTER → 2025-03-08 13:56 | Outpatient (BNV) | payer MEDICAID, SELFPAY | PROVIDERS: PCP Registered Nurse; Visit Provider Radiology Diagnostic Radiology | DX: N13.30 Unspecified hydronephrosis (principal) | CPT/HCPCS: 76775 ==

== ENCOUNTER 2025-03-09 10:26 | Outpatient (REF) | payer MEDICAID, SELFPAY ==
[2025-03-09 11:26] LABS: Blood Urea Nitrogen 17 mg/dL (9-16); Estimated Glomerular Filt Rate 46
--- OUTSIDE RECORDS SUMMARY | 2025-03-09 12:14 | XMS_ITS | Encounter Summary ---
Author Organization [employer] Address 75 [facility] 7 [place] [address] Care Team Providers Care Fish Conservationist Name Role Phone Marbella Rodriguez Primary Care Provider [phone] Encounter Details Date Type Department Care Team (Late Contact Info) Description 06/06/2022 Orders Only [facility] MEDICINE [address] [place] [address] Marbella Rodriguez FNP [address] [place] [address] Social History Tobacco Use Types Packs/Day Years [...] Department Care Team (Late Contact Info) Description 03/17/2025 8:00 AM EDT Office Visit [facility] ADULT DENTAL [address] [place] [address] Fernando Walsh, DMD [address] [place] [address] documented as of this encounter Visit Diagnoses Not on filedocumented in this encounter Care Teams Fish Conservationist Relationship Specialty Start Date End Date Marbella Rodriguez FNP [address] [place] [address] PCP - General Family Medicine 03/05/22 documented as of this encounter
--- OUTSIDE RECORDS SUMMARY | 2025-03-09 12:14 | XMS_ITS | Encounter Summary ---
Author Organization [employer] Address 75 [facility] 7 [place] [address] Care Team Providers Care Residential Sales Executive Name Role Phone Marbella Rodriguez Primary Care Provider [phone] Reason for Visit * Reason Comments Med Refill Encounter Details Date Type Department Care Team ([facility] Contact Info) Description 12/14/2022 Refill [facility] [address] [place] [address] Marbella Rodriguez FNP [address] [place] [address] Routine health maintenance Social History Tobacco Use [...] Upcoming Encounters Date Type Department Care Team ([facility] Contact Info) Description 03/17/2025 8:00 AM EDT Office Visit [facility] ADULT DENTAL [address] [place] [address] Fernando Walsh, KARINA [address] [place] [address] documented as of this encounter Visit Diagnoses Diagnosis Routine health maintenance Unspecified examination documented in this encounter Care Teams Residential Sales Executive Relationship Specialty Start Date End Date Marbella Rodriguez FNP [address] [place] [address] PCP - General Family Medicine 03/05/22 documented as of this encounter
--- OUTSIDE RECORDS SUMMARY | 2025-03-09 12:14 | XMS_ITS | Encounter Summary ---
Author Organization [employer] Address 75 [facility] 7t [place] [address] Care Team Providers Care Photograph Inspector Name Role Phone Marbella Rodriguez Primary Care Provider [phone] Reason for Visit * Reason Comments Med Refill Encounter Details Date Type Department Care Team ([facility] st Contact Info) Description 06/10/2023 Refill [facility] [address] [place] [address] Marbella Rodriguez FNP [address] [place] [address] Routine health maintenance Social History Tobacco Use [...] Care Team (Late st Contact Info) Description 03/17/2025 8:00 AM EDT Office Visit [facility] ADULT DENTAL [address] [place] [address] Fernando Walsh, DMD [address] [place] [address] documented as of this encounter Visit Diagnoses Diagnosis Routine health maintenance Unspecified examination documented in this encounter Additional Health Concerns Assessment Noted Time PHQ-9 Depression Total Score: 6 05/23/20 23 4:38 PM EST documented as of this encounter Care Teams Photograph Inspector Relationship Specialty Start Date End Date Marbella Rodriguez FNP [address] [place] [address] PCP - General Family Medicine 03/05/22 documented as of this encounter
--- OUTSIDE RECORDS SUMMARY | 2025-03-09 12:14 | XMS_ITS | Encounter Summary ---
Author Organization [employer] Address 75 [facility] 7 [place] [address] Care Team Providers Care Senior Estimator Name Role Phone Marbella Rodriguez Primary Care Provider [phone] Encounter Details Date Type Department Care Team ([facility] Contact Info) Description 07/10/2022 Orders Only [facility] [address] [place], [place] [phone] Colleen Conteh LPN Social History Tobacco Use [...] Description 03/17/2025 8:00 AM EDT Office Visit [facility] ADULT DENTAL [address] [place] [address] Fernando Walsh DMD [address] [place] [address] documented as of this encounter Visit Diagnoses Not on filedocumented in this encounter Care Teams Senior Estimator Relationship Specialty Start Date End Date Marbella Rodriguez FNP [address] [place] [address] PCP - General Family Medicine 03/05/22 documented as of this encounter
--- OUTSIDE RECORDS SUMMARY | 2025-03-09 12:14 | XMS_ITS | Encounter Summary ---
Author Organization [employer] Address [address] [facility] 7t [place] [address] Care Team Providers Care Scrap Materials Buyer Name Role Phone Marbella Rodriguez DAIRY CHEMIST Primary Care Provider [phone] Encounter Details Date Type Department Care Team ([facility] st Contact Info) Description 03/08/2025 Orders Only [facility] External Provider, [facility] Social History Tobacco Use Types Packs/Day Years [...] Description 03/17/2025 8:00 AM EDT Office Visit [facility] ADULT DENTAL [address] [place] [address] Fernando Walsh, KARINA [address] [place] [address] documented as of this encounter Procedures Procedure Name Priority Date/Time Associated Diagnosis Comments US RENAL COMPLETE Routine 03/09/2025 10: 07 AM EDT documented in this encounter Results * US Renal Complete (03/09/2025 10:07 AM EDT) Anatomical Region Laterality Modality Kidney Ultrasound 03/09/2025 10:0 7 AM EDT Narrative 03/09/2025 10:08 AM EDT [address] [address] Ultrasound Report Signed Patient: Destiny Canales I MR#: [id number] 8 : 1960 Acct:[id number] Age/Sex: 64 / F ADM Date: 03/08/25 Loc: HO.US Attending Dr: Nayla BROWN Ordering Physician: Nayla Dove Date of Service: 03/08/25 Procedure(s): US renal BI Accession Number(s): [id number] cc: Nayla Dove; Marbella Rodriguez Reason for Exam: N13.30 - Unspecified hydronephrosis CLINICAL HISTORY: N13.30 - Unspecified hydronephrosis US of kidneys Comparison: US/SR - US KIDNEY BILATERAL - 09/02/24 15:58 EST Findings: Right kidney is not well seen due to limited acoustic window, enlarged due to severe chronic hydronephrosis, nearly indiscernible renal parenchyma, no obvious calculus or mass is seen. Several senior account representative static sonographic images of the left kidney were obtained and submitted for review, please note that not entire left kidney is included on the available images, the visualized left kidney appears normal, 11.7 cm in length, no calculus, hydronephrosis or focal lesion. No abnormal vascular flow. Impression: 1. Unchanged severe right hydronephrosis. 2. The visualized left kidney is normal. This document has been electronically signed by: Sujatha Garcia MD on 03/09/2025 10:07:59 Dictated By: Sujatha Garcia MD Signed By: <Electronically signed by Sujatha Garcia MD in OV> 03/09/25 1008 DD/ 1007 TD/TT: 03/09/25 1007 Loan Operations Manager: Procedure Note Donotuseinterpreter, Image - 03/09/2025 [place] [address] Ultrasound Report Signed Patient: Destiny Canales [facility]#: [id number] 8 : 1960cct:[id number] Age/Sex: 64 / FADM Date: 03/08/25 Loc: HO.US Attending Dr: Nayla BROWN Ordering Physician: Nayla Dove Date of Service: 03/08/25 Procedure(s): US renal BI Accession Number(s): [id number] cc: Nayla Dove; Marbella Rodriguez Reason for Exam: N13.30 - Unspecified hydronephrosis CLINICAL HISTORY: N13.30 - Unspecified hydronephrosis US of kidneys Comparison: US/SR - US KIDNEY BILATERAL - 09/02/24 15:58 EST Findings: Right kidney is not well seen due to limited acoustic window, enlarged due to severe chronic hydronephrosis, nearly indiscernible renal parenchyma, no obvious calculus or mass is seen. Several senior account representative static sonographic images of the left kidney were obtained and submitted for review, please note that not entire left kidney is included on the available images, the visualized left kidney appears normal, 11.7 cm in length, no calculus, hydronephrosis or focal lesion. No abnormal vascular flow. Impression: 1. Unchanged severe right hydronephrosis. 2. The visualized left kidney is normal. This document has been electronically signed by: Sujatha Garcia MD on 03/09/2025 10:07:59 Dictated By: Sujatha Garcia MD Signed By: <Electronically signed by Sujatha Garcia MD in OV> 03/09/25 1008 DD/ 1007 TD/TT: 03/09/25 1007 Loan Operations Manager: [facility] External Provider IMG US PROCEDURES Final Result documented in this encounter Visit Diagnoses Not on filedocumented in this encounter Additional Health Concerns Assessment Noted Time PHQ-9 Depression Total Score: 8 10/21/19 25 3:18 PM EDT documented as of this encounter Care Teams Scrap Materials Buyer Relationship Specialty Start Date End Date Marbella Rodriguez FNP [address] [place] [address] PCP - General Family Medicine 03/05/22 documented as of this encounter
--- OUTSIDE RECORDS SUMMARY | 2025-03-09 12:14 | XMS_ITS | Encounter Summary ---
Author Organization [employer] Address [address] [facility] [address] [place] [address] Care Team Providers Care Muffle Operator Name Role Phone Marbella Rodriguez A AND P MECHANIC Primary Care Provider [phone] Encounter Details Date Type Department Care Team ([facility] st Contact Info) Description 03/09/2025 Orders Only GENERIC EXTERNAL DATA DEPARTMENT Provider, [...] Description 03/17/2025 8:00 AM EDT Office Visit [facility] [address] [place] [address] Fernando Walsh, DMD [address] [place] [address] documented as of this encounter Procedures Procedure Name Priority Date/Time Associated Diagnosis Comments CREATININE, SERUM Routine 03/09/2025 10: 40 AM EDT UREA NITROGEN (BUN) Routine 03/09/2025 1 0:40 AM EDT documented in this encounter Results * Creatinine, Serum (03/09/2025 10:40 AM EDT) Creatinine, Serum 1.18 0.5 - 1.4 mg/dL [facility] Estimated Glomerular Filt Rate 46 [facility] Comment:Chronic Kidney Disea se: Estimated GFR < 60 mL/min/[id number] Kidney Disease: Estimated GFR < 15 mL/min/1.73m2 03/09/2025 10:4 0 AM EDT 03/09/2025 10:42 AM EDT us Generic External Data Provider LAB BLOOD ORDERAB LES Final Result [facility] [address] [place] [address] [phone] * (ABNORMAL) BUN (Blood Urea Nitrogen) (03/09/2025 10:40 AM EDT) Urea Nitrogen (BUN) 17(H) 9 - 16 mg/dL [facility] 03/09/2025 10:4 0 AM EDT 03/09/2025 10:42 AM EDT us Generic External Data Provider LAB BLOOD ORDERAB LES Final Result Performing Organization Address [facility] Co de Phone Number [facility] [address] [place] [address] [phone] documented in this encounter Visit Diagnoses Not on filedocumented in this encounter Additional Health Concerns Assessment Noted Time PHQ-9 Depression Total Score: 8 10/21/19 25 3:18 PM EDT documented as of this encounter Care Teams Muffle Operator Relationship Specialty Start Date End Date Marbella Rodriguez FNP [address] [place] [address] PCP - General Family Medicine 03/05/22 documented as of this encounter
--- OUTSIDE RECORDS SUMMARY | 2025-03-09 12:14 | XMS_ITS | Clinical Summary ---
Author Organization [employer] Address [address] [facility] 7 [place] [address] Care Team Providers Care Agriculture Inspector Name Role Phone Marbella Rodriguez STRONG NITRIC OPERATOR Primary Care Provider [phone] Allergies Active Allergy Reactions Criticality Noted Date Comments Acetaminophen Nausea Only 02/18/2012 Oxycodone Nausea Only 02/18/2012 Penicillin G 02/11/2013 Medications metFORMIN (Glucophage) 500 MG tabletIndications :Type 2 diabetes mellitus treated without insulin (CMS/HCC) TAKE 1 TABLET BY MOUTH EVERY MORNING 90 tablet 3 024 Active Blood Pressure kitIndications:Pr imary hypertension Use to check blood pressure once daily and symptomatic 1 kit 025 Active Multiple Vitamin (Multivitamin) tabletIndications :Routine health maintenance Take 1 tablet by mouth in the morning. 90 tablet 3 025 Active simvastatin (Zocor) 20 MG tabletIndications :Other hyperlipidemia Take 1 tablet (20 mg) by mouth at bedtime. (Cholesterol) 90 tablet 3 025 Active polyethylene glycol, PEG, 3350 (MiraLax) 17 GM/SCOOP powderIndications :Other constipation Mix 17 g (~1 heaping tablespoon) dissolved in 120 to 240 mL (4 to 8 ounces) of beverage, once daily as needed for constipation. 527 g 2 025 Active ammonium lactate (Amlactin) 12 % creamIndications: Type 2 diabetes mellitus without complication, without long-term current use of insulin (CMS/HCC) Apply topically if needed for dry skin. 385 g 2 025 2025 Active TRUEplus Lancets 33G miscIndications:T ype 2 diabetes mellitus treated without insulin (CMS/HCC) USE DIRECTED TO TEST BLOOD SUGAR EVERY DAY AND NEEDED 100 each 11 025 Active glucose blood (FREESTYLE LITE) test stripIndications: Type 2 diabetes mellitus treated without insulin ([facility]) USE DIRECTED TO TEST BLOOD SUGAR TWICE DAILY 100 strip 11 025 Active lisinopril 5 MG tablet TAKE 1 TABLET BY MOUTH EVERY MORNING 90 tablet 1 025 Active pyridoxine (Vitamin B-6) 100 MG tabletIndications :Kidney stone TAKE 1 TABLET BY MOUTH EVERY MORNING 90 tablet 1 025 Active calcium carbonate EX (Tums E-X) 750 MG chewable tabletIndications :Generalized abdominal pain Chew 1-2 tablets (750-1,500 mg) if needed in the morning, at noon, and at bedtime for indigestion or heartburn. 180 tablet 1 024 2024 pyridoxine (Vitamin B-6) 100 MG tabletIndications :Kidney stone Take 1 tablet (100 mg) by mouth in the morning. 90 tablet 1 025 2024 Discontinued Active Problems Problem Noted Date Diagnosed Date Other constipation 10/20/2024 Assessment & Plan (10/20/2024 4:52 PM EDT): Encouraged increase fiber intake, good hydration, daily movement Start MiraLAX daily as needed Pelvic pain 05/12/2024 Assessment & Plan (07/28/2024 [...] appt Lab Results Component Value Date TSH 1.10/09/2022 Atrophy of right kidney 09/07/2022 Overview (03/01/2024): -Follow[place] [facility] MERLENE Dove -Ultrasound 09/01/23: IMPRESSION: LEFT KIDNEY: Normal RIGHT KIDNEY: Severe hydronephrosis, stable -Mar 2023: [facility]. Renogram revealed left 100% functional and right at 0% Assessment & Plan (10/20/2024 2:54 PM EDT): Continue following with specialist Assessment & Plan (03/01/2024 4:59 PM EDT): Continue following with specialist Assessment & Plan (05/23/2023 5:04 PM EST): Continue following with specialist ED/urgent care precautions reviewed Assessment & Plan [...] of symptoms Routine health maintenance 09/05/2022 Overview (10/20/2024): STI: negative October 2022 Contraception: n/a Pap/Results: NILM HPV Neg 09/26/22 (Holly Shook CNM). Hx of BRENT 1 Smoking status: non-smoker Mammo: BIRADS 2 in Jun 2023 C-scope: 07/2020, repeat 5 years (07/2025) HTN (hypertension) 08/06/2022 Overview (03/01/2024): -Continue Lisinopril 5mg daily & lifestyle interventions Assessment & Plan (10/20/2024 4:49 PM EDT): - Mild elevation in office - Encouraged to record home blood pressure readings - Encouraged lifestyle interventions and to follow up if home BP readings above goal Assessment & Plan (07/28/2024 5:08 PM EST): [...] grade 1 07/13 Diabetes mellitus 08/31/2013 Overview (10/20/2024): Lab Results Component Value Date HGBA1C 6.0 10/20/2024 -Well controlled -Medications: metformin 500mg daily & lifestyle interventions -Simvastatin 20mg nightly Assessment & Plan (10/20/2024 4:49 PM EDT): Continue with current therapy Assessment & Plan (07/28/2024 5:08 PM EST): Continue with current therapy Assessment & Plan (03/01/2024 5:06 PM EDT): Continue with current therapy Assessment & Plan (05/23/2023 5:05 PM EST): DC evening dose of metformin Kidney stone 02/11/2013 Developmental delay 02/11/2013 Assessment & Plan (09/01/2023 6:18 PM EST): Currently functioning with assistance from family and friends Previous referral for HEAD REFRIGERATING ENGINEER placed, phone numbers provided today for patient/sister [...] sent for culture Bacterial vaginosis 05/12/2024 07/28/19 25 Assessment & Plan (05/12/2024 9:10 PM EST): Vaginal discharge Swab sent to lab Positive for BV Encounters Date Type Department Care Team Description 03/09/2025 Orders Only GENERIC EXTERNAL DATA DEPARTMENT Provider, Generic External Data 03/08/2025 Orders Only [facility] External Provider, [facility] 02/24/2025 Refill [facility] [address] [place] [address] Marbella Rodriguez FNP Kidney stone 01/04/2025 Orders Only GENERIC EXTERNAL DATA DEPARTMENT Provider, Generic External Data 12/27/2024 Refill [facility] [address] [place] [address] Marbella Rodriguez FNP from Last 3 Months Immunizations Immunization Administration Dates Next Due Influenza, IIV3, injectable [...] Sign Reading Time Taken Comments Blood Pressure 142/68 10/20/2024 3:33 PM EDT Pulse 66 10/20/2024 3:06 PM EDT Temperature 36.3 C (97.3 F) 10/20/2024 3:06 PM EDT Respiratory Rate 20 10/20/2024 3:06 PM EDT Oxygen Saturation 98% 10/20/2024 3:06 PM EDT Inhaled Oxygen Concentration - - Weight 56.7 kg (125 lb) 10/20/2024 3:06 PM EDT Height 157.5 cm (5' 2 ) 10/20/2024 3:06 PM EDT Body Mass Index 22.86 10/20/2024 3:06 PM EDT Plan of Treatment Upcoming Encounters Date Type Department Care Team (Late st Contact Info) Description 03/17/2025 8:00 AM EDT Office Visit [facility] [address] [place], [place] [phone] Fernando Walsh, DMD [address], [place] [phone] Health Maintenance Due Date Last Done Comments CT Colonography 1960 FIT DNA/Cologuard 1960 FIT 1960 FOBT 1960 Sigmoidoscopy 1960 Eye Exam 1970 Pneumococcal Vaccine: 50+ Years (1 of 2 - PCV) 09/17/1979 Zoster Vaccines (2 of 2) 11/01/2019 09/06/2019 Diabetes: Urine Protein Screening 04/27/2022 04/27/2021, 12/28/2019 Lipid Panel 10/10/2023 10/09/2022, 04/07, 12/28/2019 DTaP/Tdap/Td Vaccines (2 - Td or Tdap) 12/04/2023 12/03/2013, 07/26/2005 Diabetes: Foot Exam 11/03/2024 11/04/2023, 09/01/2023, 09/01/2023, Additional history exists Influenza Vaccine (#1) 2025 04/05/2014, 2005 Diabetes: Hemoglobin A1C 04/21/2025 025, 03/01/2024, 09/01/2023, Additional history exists Alcohol/Substance Use Screening 05/07/2025 05/07/2024 Colonoscopy 07/27/2025 07/27/2020 Colorectal Cancer Screening 07/27/2025 COVID-19 Vaccine ( season) 2025 Postponed from 03/07/2024 (Patient Refused) Depression Screening 10/20/2025 10/20/2024, 10/21/19 Disability Screening 10/20/2025 10/20/2024 SDOH Screening 10/20/2025 10/20/2024 Tobacco Screening 10/20/2025 10/20/2024 Mammogram 01/03/2026 01/03/2025, 06/07, 06/04/2021, Additional history exists Cervical Cancer Screening 09/27/2027 HPV/Cotest 09/27/2027 09/26/2022, 07/12/2020 Pap Smear 09/27/2027 09/26/2022, 07/12/2020 RSV Patients and Patients Aged 60 years or older (1 - 1-dose 75+ series) 09/17/2035 HIV Screening Completed 01/04/2025, 10/09/2022 Hepatitis C Screening Completed 01/04/2025, 023 HIB Vaccines Aged Out No longer eligi [...] patient's age to complete this topic Meningococcal B Vaccine Aged Out No l onger eligible based on patient's age to complete [...] (BUN) Routine 03/09/2025 1 0:40 AM EDT US RENAL COMPLETE Routine 03/09/2025 10: 07 AM EDT HEPATITIS B CORE ANTIBODY (IGM) Routine 01/04/2025 4:05 PM EDT HEPATITIS B CORE AB TOTAL Routine 01/04/2025 4:05 PM EDT HIV 1/2 ANTIGEN/ANTIBODY, FOURTH GENERATION W/RFL Routine 01/04/2025 4:05 PM EDT HEPATITIS C AB W/REFL TO HCV RNA, QN, PCR Routine 01/04/2025 4:05 PM EDT SYPHILIS SCREEN Routine 01/04/2025 4:05 PM EDT BI MAMMOGRAM SCREENING TOMOSYNTHESIS BILATERAL Routine 01/03/2025 3:18 PM EDT POCT GLYCATED HEMOGLOBIN, TOTAL Routine 10/20/2024 3:47 PM EDT Type 2 diabetes mellitus without complication, without long-term current use of insulin (CMS/HCC) AMB REFERRAL TO PODIATRY Routine 11/04/2023 Bunion of left foot LIPID PANEL, STANDARD Routine 10/09/2022 8:52 AM EDT Routine health maintenance HPV MRNA E6/E7 REFLEX TO HPV 16, 18/45 Routine 09/26/2022 3:05 PM EDT PAP SMEAR Routine 09/26/2022 3:05 PM EDT ALBUMIN, RANDOM URINE W/CREATININE Routine 04/27/2021 10:04 AM EDT HM COLONOSCOPY Routine 07/27/2020 Routine health maintenance from Last 3 Months or Most Recently Relevant to Health Maintenance Results * Creatinine, Serum (03/09/2025 10:40 AM EDT) Creatinine, Serum 1.18 0.5 - 1.4 mg/dL [facility] Estimated Glomerular Filt Rate 46 [facility] Comment:Chronic Kidney Disea se: Estimated GFR < 60 mL/min/1.55f4Iwfagn Kidney Disease: Estimated GFR < 15 mL/min/1.73m2 03/09/2025 10:4 0 AM EDT 03/09/2025 10:42 AM EDT Generic External Data Provider LAB BLOOD ORDERAB LES Final Result Performing Organization Address [facility] Co de Phone Number [facility] [address] [place] [phone] * (ABNORMAL) BUN (Blood Urea Nitrogen) (03/09/2025 10:40 AM EDT) Urea Nitrogen (BUN) 17(H) 9 - 16 mg/dL [facility] 03/09/2025 10:4 0 AM EDT 03/09/2025 10:42 AM EDT Generic External Data Provider LAB BLOOD ORDERAB LES Final Result Performing Organization Address [facility] Co de Phone Number [facility] [address] [place] [phone] * US Renal Complete (03/09/2025 10:07 AM EDT) Anatomical Region Laterality Modality Kidney Ultrasound 03/09/2025 10:0 7 AM EDT Narrative 03/09/2025 10:08 AM EDT [address] [address] Ultrasound Report Signed Patient: Destiny Canales I MR#: [id number] 8 : 1960 Acct:[id number] Age/Sex: 64 / F ADM Date: 03/08/25 Loc: .US Attending Dr: Nayla BROWN Ordering Physician: Nayla Dove Date of Service: 03/08/25 Procedure(s): US renal BI Accession Number(s): [id number] cc: Nayla Dove; Marbella Rodriguez Reason for Exam: N13.30 - Unspecified hydronephrosis CLINICAL HISTORY: N13.30 - Unspecified hydronephrosis US of kidneys Comparison: US/SR - US KIDNEY BILATERAL - 09/02/24 15:58 EST Findings: Right kidney is not well seen due to limited acoustic window, enlarged due to severe chronic hydronephrosis, nearly indiscernible renal parenchyma, no obvious calculus or mass is seen. Several patient relations representative static sonographic images of the left [...] Garcia MD Signed By: <Electronically signed by uSjatha Garcia MD in OV> 03/09/25 1008 DD/ 1007 TD/TT: 03/09/25 1007 Animal Care Supervisor: Procedure Note Donotuseinterpreter, Image - 03/09/2025 [place] [address] Ultrasound Report Signed Patient: Destiny Canales [facility]#: [id number] 8 : 1960cct:[id number] Age/Sex: 64 / FADM Date: 03/08/25 Loc: HO.US Attending Dr: Nayla BROWN Ordering Physician: Nalya Dove Date of Service: 03/08/25 Procedure(s): US renal BI Accession Number(s): [id number] cc: Nayla Dove; Marbella Rodriguez Reason for Exam: N13.30 - Unspecified hydronephrosis CLINICAL HISTORY: N13.30 - Unspecified hydronephrosis US of kidneys Comparison: US/SR - US KIDNEY BILATERAL - 09/02/24 15:58 EST Findings: Right kidney is not well seen due to limited acoustic window, enlarged due to severe chronic hydronephrosis, nearly indiscernible renal parenchyma, no obvious calculus or mass is seen. Several patient relations representative static sonographic images of the left [...] Garcia MD Signed By: <Electronically signed by Sjuatha Garcia MD in OV> 03/09/25 1008 DD/ 1007 TD/TT: 03/09/25 1007 Animal Care Supervisor: [facility] External Provider IMG US PROCEDURES Final Result * Syphilis Screen (01/04/2025 4:05 PM EDT) Syphilis Screen Nonreactive Nonreactive [facility] 01/04/2025 4:05 PM EDT 01/04/2025 4:06 PM EDT Generic External Data Provider LAB BLOOD ORDERAB LES Final Result [facility] [address] [place] [phone] * Hepatitis C Antibody with Reflex to HCV, RNA, Quantitative, Real-Time PCR (01/04/2025 4:05 PM EDT) Hepatitis C Antibody Nonreactive Nonreactive [facility] Comment:Antibodies to HCV no t detected; does not exclude early acuteHCV infection. 01/04/2025 4:05 PM EDT 01/04/2025 4:06 PM EDT us Generic External Data Provider LAB BLOOD ORDERAB LES Final Result Performing Organization Address [facility]/ZIP Co de Phone Number [facility] [address] [place] [phone] * Hepatitis B Core??Antibody (IgM) (01/04/2025 4:05 PM EDT) Pathologist [facility] Hepatitis B Core Antibody IgM NON-REACTI VE NON-REACTI VE [facility] Comment:For additional infor mation, please refer tohttp://education.noodls/faq/NCU799(This link is being provided for informational/educational purposes only.)THIS TEST WAS PERFORMED AT:[employer])[address] [place] [phone] KLEIN MD 01/04/2025 4:05 PM EDT 01/04/2025 4:06 PM EDT Generic External Data Provider LAB BLOOD ORDERAB LES Final Result Performing Organization Address [facility] Co de Phone Number [facility] [address] [place] [phone] * Hepatitis B Core Antibody, Total (01/04/2025 4:05 PM EDT) Pathologist [facility] Hepatitis B Core Antibody Reactive Nonreactive [facility] Comment:Presumptive evidence of anti-HBc. 01/04/2025 4:05 PM EDT 01/04/2025 4:06 PM EDT Generic External Data Provider LAB BLOOD ORDERAB LES Final Result Performing Organization Address [facility] Co de Phone Number [facility] [address] [place] [phone] * HIV-1/2 Antigen and Antibodies, Fourth Generation, with Reflexes (01/04/2025 4:05 PM EDT) Pathologist [facility] HIV AB/AG Nonreactive Nonreactive [facility] Comment:HIV-1 p24 Ag and/or HIV-1/HIV-2 Ab not detected.A test result that is nonreactive does not exclude thepossibility of exposure to or infection with HIV-1 and/orHIV-2. Nonreactive results in this assay for individualswith prior exposure to HIV-1 and/or HIV-2 may be due toantigen and antibody levels that are below the limit ofdetection of this assay.The Flayr HIV Ag/Ab Combo assay result andsupplemental assay results should be interpreted inconjunction with the patient's clinical presentation,history and other laboratory results. If the results areinconsistent with clinical evidence, additional testing issuggested to confirm the result. 01/04/2025 4:05 PM EDT 01/04/2025 4:06 PM EDT us Generic External Data Provider LAB BLOOD ORDERAB LES Final Result Performing Organization Address City/State/[facility] Co de Phone Number [facility] [address] [place] [phone] * BI Mammogram Screening Tomosynthesis Bilateral (01/03/2025 3:18 PM EDT) Anatomical Region Laterality Modality Breast Bilateral Mammography 01/03/2025 3:18 PM EDT Narrative 01/16/2025 8:33 PM EDT [facility] [address] [place] [address] Mammography Report Signed Patient: Destiny Canlaes I MR#: [id number] 8 : 1960 Acct:[id number] Age/Sex: 64 / F ADM Date: 01/03/25 Loc: HO.MAMMO Attending Dr: Marbella Rodriguez STRONG NITRIC OPERATOR Ordering Physician: Marbella Rodriguez Results: 2Benig n Findings Date of Service: 01/03/25 Follow Up: 1 Year From Orig ina Mammogram Procedure(s): MM tomosynthesis screening BI Accession Number(s): [id number] cc: Marbella Rodriguez STRONG NITRIC OPERATOR EXAMINATION: MM SCREENING DIGITAL BREAST TOMOSYNTHESIS, BILATERAL CLINICAL INFORMATION: Screening. Asymptomatic. COMPARISON: Mammography: Comparison is made with available priors TECHNIQUE: Digital breast mammography with tomosynthesis is performed in both the craniocaudal and mediolateral oblique views along with computer-aided detection (CAD). FINDINGS: The breasts are heterogeneously dense, which may obscure small masses (ACR BI-RADS breast composition Category c). Right marker clip. There are no significant masses, abnormal calcifications, or other abnormalities. MM/MM tomosynthesis screening BI IMPRESSION: No mammographic evidence of malignancy. ASSESSMENT: BI-RADS BI-RADS 2 - Benign Findings RECOMMENDATION: Routine annual mammography screening. 1 year F/U This examination should not preclude the clinical evaluation of a suspicious palpable abnormality. This patient's information was entered into a reminder system with a target due date for their next mammogram. Electronically signed by: Krystyna Lucas DO 01/16/2025 08:30 PM EDT RP Dictated By: Krystyna Lucas DO Signed By: <Electronically signed by Krystyna Lucas DO in OV> 01/16/252029 DD/ 1518 TD/TT: 01/03/25 1530 Animal Care Supervisor: Procedure Note Donotuseinterpreter, Image - 01/16/2025 [facility] [address] [place] [address] Mammography Report Signed Patient: Destiny Canales [facility]#: [id number] 8 : 1960cct:[id number] Age/Sex: 64 / FADM Date: 01/03/25 Loc: HO.MAMMO Attending Dr: Marbella Rodriguez STRONG NITRIC OPERATOR Ordering Physician: Marbella Rodriguez FNPResults: 2Benig n Findings Date of Service: 01/03/25Follow Up: 1 Year From Orig inal Mammogram Procedure(s): MM tomosynthesis screening BI Accession Number(s): [id number] cc: Marbella Rodriguez STRONG NITRIC OPERATOR EXAMINATION: MM SCREENING DIGITAL BREAST TOMOSYNTHESIS, BILATERAL CLINICAL INFORMATION: Screening. Asymptomatic. COMPARISON: Mammography: Comparison is made with available priors TECHNIQUE: Digital breast mammography with tomosynthesis is performed in both the craniocaudal and mediolateral oblique views along with computer-aided detection (CAD). FINDINGS: The breasts are heterogeneously dense, which may obscure small masses (ACR BI-RADS breast composition Category c). Right marker clip. There are no significant masses, abnormal calcifications, or other abnormalities. MM/MM tomosynthesis screening BI IMPRESSION: No mammographic evidence of malignancy. ASSESSMENT: BI-RADS BI-RADS 2 - Benign Findings RECOMMENDATION: Routine annual mammography screening. 1 year F/U This examination should not preclude the clinical evaluation of a suspicious palpable abnormality. This patient's information was entered into a reminder system with a target due date for their next mammogram. Electronically signed by: Krystyna Lucas DO 01/16/2025 08:30 PM EDT RP Dictated By: Krystyna Lucas DO Signed By: <Electronically signed by Krystyna Lucas DO in OV> 01/16/252029 DD/ TD/TT: 01/03/25 1530 Animal Care Supervisor: us Marbella Rodriguez [facility] IMG BI PROCEDURES Edited Resul t - Final * POCT HGB A1C (10/20/2024 3:47 PM EDT) Hemoglobin A1C 6.0 4.0 - 6.0 % QC Media Lot # [id number] Lot# Expiration Date Blood 10/20/2024 3:47 PM EDT us Marbella Rodriguez [facility] POINT OF CARE TEST ENTER/EDIT ORDERABLES Final Result * Referral to Podiatry (11/04/2023) us Marbella Rodriguez [facility] OUTPATIENT REFERRAL ORDERABLES Final Result * (ABNORMAL) Lipid Panel, Standard (10/09/2022 8:52 AM EDT) Cholesterol, Total 172 <200 mg/dL [facility] HDL Cholesterol 58 > OR = 50 mg/dL [facility] [place] [facility] Triglycerides 59 <150 mg/dL [facility] [place] [facility] LDL Cholesterol 100(H) mg/dL (calc) [facility] [place] [facility] Comment: Reference range: <100 Desirable range <100 mg/dL for primary prevention; <70 mg/dL for patients with CHD or diabetic patients with > or = 2 CHD risk factors. LDL-C is now calculated using the Elmer-Osmany calculation, which is a validated novel method providing better accuracy than the Friedewald equation in the estimation of LDL-C. Elmer ESQUIVEL et al. BETTINA. 2013;310(19): 6191-5774 (http://education.WorldDesk/faq/CLN506) Chol/HDLC Ratio 3.0 <5.0 (calc) [facility] [place] [facility] Non-HDL Cholesterol 114 <130 mg/dL (calc) [facility] [place] [facility] Comment: For patients with diabetes plus 1 major ASCVD risk factor, treating to a non-HDL-C goal of <100 mg/dL (LDL-C of <70 mg/dL) is considered a therapeutic option. Blood Venous blood specimen / Unknown 10/09/2022 8:52 AM EDT 10/09/2022 8:53 AM EDT Narrative [facility] - 10/11/2022 8:59 PM EDT FASTING:YES PATIENT UNABLE TO VOID; ADVISED TO RETURN FOR COLLECTION. FASTING: YES Marbella Rodriguez [facility] LAB BLOOD ORDERABLES Final Res ult [facility] [address], [place] [phone] [facility] [place] [facility] [address] [place] [phone] * HPV mRNA E6/E7 w/Reflex to HPV Genotypes 16, 18/45 (09/26/2022 3:05 PM EDT) HPV nRNA E6/E7 Not Detected Not Detected [facility] Comment:Methodology: Transcr iption-Mediated AmplificationThis assay detects E6/E7 viral messenger RNA (mRNA) from 14high-risk HPV types (16,18,31,33,35,39,45,51,52,56,58,59,66,68).Cervical sources are required for HPV testing.If a vaginal source from a patient who has had atotal hysterectomy with removal of cervix wassubmitted, please contact the testing laboratoryfor alternative testing options.For additional information, please refer tohttp://education.noodls/faq/NKK440d2(This link if provided for information/educational purposes only.)THIS TEST WAS PERFORMED AT:[employer] [facility])[address] [place] [phone] KLEIN MD HPV mRNA E6/E7 [facility] HPV 16 RNA [facility] HPV 18/45 RNA [facility] 09/26/2022 3:05 PM EDT 09/27/2022 9:45 AM EDT [facility] External Provider LAB CYT OLOGY ORDERABLES Final Result [facility] [address] [place] [address] [phone] * Pap Smear (09/26/2022 3:05 PM EDT) 09/26/2022 3:05 PM EDT 09/27/2022 9:45 AM EDT Narrative [facility] - 10/07/2022 12:02 PM EDT ----- ------- Name: Destiny Canales I Age/Sex: 62/F : 1960 Unit#: [id number] Attend Dr: Holly Shook CNM Re09/26/22 Status: DEP REF Location: [facility]ON[facility]itaLNP Disch: ----- ------- SPEC : [id number] RECD: 09/27/22-45 STATUS: RADHA SANTOS NUM: [id number] DAISHA: 09/26/22-[address] [facility] DR: Holly Shook CNM ENTERED: 09/27/22-100 SP TYPE: Pap Smr OTHR DR: Marbella Rodriguez ORDERED: Pap Smear Interpretation Satisfactory for evaluation. Negative for intraepithelial lesion or malignancy. HPV mRNA E6/E7: NOT DETECTED This assay detects E6/E7 viral messenger RNA (mRNA) from 14 high-risk HPV types (16, 18, 31, 33, 35, 39, 45, 51, 52, 56, 58, 59, 66, 68) HPV testing performed by [facility] [place]. See reference laboratory portion of the EMR for entire report. Clinical Information LMP: Menopausal Previous PAP test: 2021, WNL Material Received ThinPrep-Cervical Copies To: Holly Shook CNM [address] [place] [address] Dr. Rios [address] [place] [phone] Marbella Rodriguez [address] [place] [address] ----- ------- Signed (signature on file) Yahaira Lopes Leoncio 04/03/23 1202 ----- ------- END OF REPORT [facility] External Provider LAB CYT OLOGY ORDERABLES Final Result [facility] [address] [place] [address] [phone] * ALBUMIN, RANDOM URINE W/CREATININE (04/27/2021 10:04 AM EDT) Microalbumin Urine 2.3 See Note: mg/dL [facility] Comment: Reference Range: Reference Range Not established Microalb/Creat Ratio 23 <30 mcg/mg creat [facility] Comment: The ADA defines abnormalities in albumin excretion as follows: Albuminuria Category Result (mcg/mg creatinine) Normal to Mildly increased <30 Moderately increased 30-299 Severely increased > OR = 300 The ADA recommends that at least two of three specimens collected within a 3-6 month period be abnormal before considering a patient to be within a diagnostic category. Creatinine, Urine 102 20 - 275 mg/dL [facility] 04/27/2021 10:0 4 AM EDT Keli Emery NP LAB URINE ORDERABLES Final Res ult [facility] [address] * (ABNORMAL) Colonoscopy (07/27/2020) Colonoscopy Abnormal(A ) Normal Narrative Marbella Rodriguez FNP - [place]27/[place] [facility] [place] Plan: 5 year follow up Historical Provider MD HEALTH MAINTENANCE Final Result from Last 3 Months or Most Recently Relevant to Health Maintenance Insurance [facility] C3 [facility] MEDICAID STAND ADULT Care Teams Agriculture Inspector Relationship Specialty Start Date End Date Marbella Rodriguez FNP [address] [place] [address] PCP - General Family Medicine 03/05/22
--- OUTSIDE RECORDS SUMMARY | 2025-03-09 12:14 | XMS_ITS | Encounter Summary ---
Author Organization [employer] Address [address] [facility] 7t [place] [address] Care Team Providers Care Cable Inspector Name Role Phone Marbella Rodriguez Primary Care Provider [phone] Reason for Visit * Reason Onset Date Comments Results 08/05/2023 Encounter Details Date Type Department Care Team (Late st Contact Info) Description 08/05/2023 Telephone [facility] MEDICINE [address] [place] [address] Marbella Rodriguez FNP [address] [place] [address] Results Social History Tobacco Use Types Packs/Day [...] results: mammogram Date when done: N/A Facility: [facility] [place] documented in this encounter Plan of Treatment Upcoming Encounters Date Type Department Care Team (Late st Contact Info) Description 03/17/2025 8:00 AM EDT Office Visit [facility] ADULT DENTAL [address] [place] [address] Fernando Walsh DMD [address] [place] [address] documented as of this encounter Visit Diagnoses Not on filedocumented in this encounter Additional Health Concerns Assessment Noted Time PHQ-9 Depression Total Score: 6 05/23/20 23 4:38 PM EST documented as of this encounter Care Teams Cable Inspector Relationship Specialty Start Date End Date Marbella Rodriguez FNP [address] [place] [address] PCP - General Family Medicine 03/05/22 documented as of this encounter
== END 2025-03-09 10:27 | disposition home or self-care (01) ==
LOC: HO.LAB 10:26
PROVIDERS: PCP Registered Nurse; Visit Provider Nurse Practitioner Family
DX: N26.1 Atrophy of kidney (terminal) (principal); N13.2 Hydronephrosis with renal and ureteral calculous obstruction
CPT/HCPCS: 36415; 82565; 84520

== ENCOUNTER 2025-03-17 15:33 | Outpatient (AMB) | payer MEDICAID, SELFPAY ==
--- NOTE | 2025-03-17 15:50 | MHC.OFFVIS ---
Intake Visit Reasons: 6m/US/labs Intake Note: Patient is present for 6M/US/LABS Urology Medication:VITAMIN B6 Antibiotic Allergy:PENICILLINS Blood Thinner:NONE Refrigeration Plant Operator Required: No Refrigeration Plant Operator Name: Zena Hampton Allergies acetaminophen (Percocet) Allergy (Severe, Verified 03/17/25 16:11) edema morphine (MORPHINE) Allergy (Intermediate, Verified 03/17/25 16:11) HIVES/REDNESS TO FACE oxycodone (From PERCOCET) Allergy (Intermediate, Verified 03/17/25 16:11) RASH Penicillins (PENICILLINS) Allergy (Intermediate, Verified 03/17/25 16:11) RASH WITH HIVES Medication List - Last Reconciled 03/17/25 by DEVEN Leiva-HERB aspirin (Adult Low Dose Aspirin) 81 mg PO DAILY bisacodyl (Dulcolax (bisacodyl)) 10 mg (2 x 5 mg) PO ONCE 1 day blood sugar diagnostic (FreeStyle Lite Strips) As directed lancets (TRUEplus Lancets) As directed lisinopril 5 mg PO DAILY metformin 500 mg PO BID metronidazole 0.75%(37.5mg/5gram) 1 appful vaginal BEDTIME 5 days multivitamin 1 tab PO QAM pyridoxine (vitamin B6) 100 mg PO DAILY 90 days simvastatin 20 mg PO QPM HPI Comments Details: Destiny is a 64 year old Burundian speaking patient if Dr. Rodriguez who is accompanied by her significant other today. She presents to the office today for a follow up of her chronic severe hydronephrosis. Recent renal imaging results reviewed with the patient today. Renal ultrasound 03/31 unchanged severe right hydronephrosis. The visualized left kidney is normal. Previous workup has included a Lasix renogram 08/29 showing left 100% functioning and right at 0%. Left kidney normal in size, shape, outline, shows normal perfusion, concentration and excretion and no evidence of any obstruction and right kidney nonvisualized, either surgically absent or nonfunctional. Unchanged severe hydronephrosis with severe renal cortical thickening redemonstrated on the right side. In discussion with the patient today she reports to be doing and feeling well. Recent BUN and creatinine results reviewed with the patient today as noted and trended below: BUN: 02/22 17, 06/24 23, 08/29 17, 02/26 13, 09/26 19, 04/29 21, 09/28 18, 03/31 17 Creatinine: 02/22 1.25, 06/24 1.24, 08/29 1.20, 02/26 0.97, 09/26 1.05, 04/29 1.22, 09/28 0.96, 03/31 1.18 When compared to previous labs, BUN/creatinine stable. Discussed at length importance of management and maintaining good sugar control, diet control, adequate hydration, and blood pressure management. She denies any urinary issues or concerns at this time. Patient denies urinary frequency, urinary urgency, dysuria, incontinence, hematuria, changes to urinary stream, flank pain, fever, and or chills. In office urinalysis results reviewed with the patient today. She otherwise offers no other issues or concerns at this time. [facility] Medical History BRENT I (cervical intraepithelial neoplasia I) Tubular adenoma Hx of renal calculi HTN (hypertension) Diabetes mellitus Surgical History History of esophagogastroduodenoscopy (EGD) H/O colonoscopy Hx of dilation and curettage Hx of cystoscopy History of bilateral carpal tunnel release Hx of cholecystectomy Hx of section Family History Father Diabetes Heart problem Hypercholesteremia Mother HTN (hypertension) Diabetes H/O heart surgery Blood clot in vein Social History Household Members: Spouse Housing: Apartment Alcohol intake: former Comment: pt states tripped down the stairs Patient Tobacco Use Status: Never used Tobacco Current occupational status: unemployed Sexual orientation: Straight/Heterosexual Gender identity: Female Review of Systems Const All systems reviewed & are unremarkable except as noted in HPI and below Reports as per HPI Eyes Reports no additional complaints ENT Reports no additional complaints Card Reports no additional complaints Resp Reports no additional complaints GI Reports as per HPI and Reports no additional complaints Reports as per HPI Musc Reports no additional complaints Skin/Breast Reports as per HPI Neuro Reports no additional complaints Psych Reports no additional complaints Endo Reports no additional complaints Jayce/Lymph Reports no additional complaints Aller/Immun Reports no additional complaints Physical Exam Const General: cooperative, healthy appearing, comfortable, no acute distress, well developed, alert and awake Nutritional Appearance: average body habitus Orientation/consciousness: patient oriented x3 Limitations: language barrier HEENT Head: Yes normal to inspection, Yes normocephalic and Yes atraumatic Ears: hearing grossly normal bilaterally Eyes General: appearance normal, both eyes and all related structures Neck Neck: Yes normal visual inspection and Yes trachea midline Chest Chest palpation & inspection: normal inspection of the chest Resp Effort & Inspection: normal respiratory effort and able to speak in complete sentences Cardio Rate: regular rate GI Inspection: Yes normal to inspection General: Yes no CVA tenderness Back/Spine/Pelvis Back: no CVA tenderness Neuro General: patient oriented x3 Extrem General: Yes normal to inspection and Yes full ROM Psych Appearance: grossly normal and well kempt Mental Status: mental status grossly normal Speech and movement: Normal speech and movement present and Clear speech present Affect: normal affect Attitude: cooperative Thought process: Normal thought process present Thought content: Normal thought content present Insight: Fair insight present (Psych) Judgement: Fair judgement present (Psych) Results AMB Urinalysis, Automated UA Leukoctes 0 Vaishnavi/uL Last Edit by Anand Will CCM on 03/17/25 16:47 UA Nitrite Negative Last Edit by Anand Will CCM on 03/17/25 16:47 UA Urobilinogen 3.5 mg/dL Last Edit by Anand Will CCM on 03/17/25 16:47 UA Protein 0 mg/dL Last Edit by Anand Will CCM on 03/17/25 16:47 UA pH 6.0 Last Edit by Anand Will CCM on 03/17/25 16:47 UA Blood 0 Nadeem/uL Last Edit by Anand Will [facility] on 03/17/25 16:47 UA Specific [place] 1.005 Last Edit by Anand Will CCM on 03/17/25 16:47 UA Ketone Negative Last Edit by Anand Will CCM on 03/17/25 16:47 UA Bilirubin 0 mg/dL Last Edit by Anand Will CCM on 03/17/25 16:47 UA Glucose 0 mg/dL Last Edit by Anand Will [facility] on 03/17/25 16:47 Results Reviewed Results Reviewed: Laboratory Last Values Urine pH (Auto) 6.0 03/17/25 16:46 Specific [place] (Auto) 1.005 03/17/25 16:46 Urine Protein (Auto) 0 mg/dL 03/17/25 16:46 Glucose (UA)(Auto) 0 mg/dL 03/17/25 16:46 Urine Ketones (Auto) Negative 03/17/25 16:46 Urine Blood (Auto) 0 Nadeem/uL 03/17/25 16:46 Urine Nitrite (Auto) Negative 03/17/25 16:46 Urine Bilirubin (Auto) 0 mg/dL 03/17/25 16:46 Urine Urobilinogen (Auto) 3.5 mg/dL 03/17/25 16:46 Leukocyte Esterase (Auto) 0 Vaishnavi/uL 03/17/25 16:46 Date of Service: 03/08/25 Procedure(s): US renal BI Findings: Right kidney is not well seen due to limited acoustic window, enlarged due to severe chronic hydronephrosis, nearly indiscernible renal parenchyma, no obvious calculus or mass is seen. Several patient support representative static sonographic images of the left kidney were obtained and submitted for review, please note that not entire left kidney is included on the available images, the visualized left kidney appears normal, 11.7 cm in length, no calculus, hydronephrosis or focal lesion. No abnormal vascular flow. Impression: 1. Unchanged severe right hydronephrosis. 2. The visualized left kidney is normal. Assessment & Plan Assessment & Plan (1) Hydronephrosis: Code(s): N13.30 - Unspecified hydronephrosis Category: Medical (2) Atrophic kidney, acquired: Code(s): N26.1 - Atrophy of kidney (terminal) Category: Medical (3) Nephrolithiasis: Code(s): N20.0 - Calculus of kidney Category: Medical Plan In office urinalysis results reviewed with the patient today; as noted above. Recent renal imaging results reviewed with the patient today; as noted above. BUN and creatinine reviewed and trended with the patient today; as noted above. Patient denies any bothersome urinary issues or concerns. Patient reports be happy with current voiding parameters. Will continue with surveillance monitoring of chronic/severe hydronephrosis. Will obtain renal ultrasound in 1 year Will obtain BUN and creatinine in 1 Follow-up in 1 year with labs and imaging to be completed prior; or sooner with any issues, concerns, and or questions. Orders: Orders AMB Urinalysis Automated Today Z13.9 - Encounter for screening, unspecified Blood Urea Nitrogen 1 Year R39.15 - Urgency of urination US renal BI 1 Year N20.0 - Calculus of kidney Creatinine 1 Year R39.15 - Urgency of urination Patient Instructions: The patient had an opportunity to ask questions regarding the treatment plan. All questions were answered. Physical exam, labs, and imaging were discussed and reviewed in detail. As well as risks, benefits, and discussion of treatment choices. No major barriers to understanding were identified. The patient expressed understanding and agreement with the above treatment plan. The patient was made aware they should contact our office by phone for worsening of their current condition, the appearance of new symptoms, or with any questions or concerns. Compliance is encouraged with any medications and follow up testing that is ordered. It is a privilege to be allowed the opportunity to participate in? your urological care.? Again, if you have any questions or concerns If you have any questions or concerns please do not hesitate to contact me. The office is [phone]. This note is constructed using voice recognition software. While every effort has been made to ensure accuracy tube carrier errors may have been included. Yours sincerely, STEPHANIE Leiva Coding Level of Care Code Est Pt Level 3 (74635) Complex EM visit Add On G2211 Diagnoses Hydronephrosis N13.30 Atrophic kidney, acquired N26.1 Nephrolithiasis N20.0
--- OUTSIDE RECORDS SUMMARY | 2025-03-17 18:41 | XMS_ITS | Encounter Summary ---
Author Organization [employer] Address [address] [facility] 7t [place] [address] Care Team Providers Care Paperboard Boxes Estimator Name Role Phone Marbella Rodriguez Primary Care Provider [phone] Reason for Visit * Reason Onset Date Comments Results 08/05/2023 Encounter Details Date Type Department Care Team ([facility] st Contact Info) Description 08/05/2023 Telephone [facility] MEDICINE [address] [place] [address] Marbella Rodriguez FNP [address] [place] [address] Results Social History Tobacco Use Types Packs/Day [...] results: mammogram Date when done: N/A Facility: [facility] [place] documented in this encounter Plan of Treatment Upcoming Encounters Date Type Department Care Team (Late st Contact Info) Description 04/01/2025 9:00 AM EDT Office Visit [facility] ADULT DENTAL [address] [place] [address] Fernando Walsh DMD [address] [place] [address] documented as of this encounter Visit Diagnoses Not on filedocumented in this encounter Additional Health Concerns Assessment Noted Time PHQ-9 Depression Total Score: 6 05/23/20 23 4:38 PM EST documented as of this encounter Care Teams Paperboard Boxes Estimator Relationship Specialty Start Date End Date Marbella Rodriguez FNP [address] [place] [address] PCP - General Family Medicine 03/05/22 documented as of this encounter
--- OUTSIDE RECORDS SUMMARY | 2025-03-17 18:41 | XMS_ITS | Encounter Summary ---
Author Organization [employer] Address [address] [facility] 7 [place] [address] Care Team Providers Care Landfill Gas Technician Name Role Phone Marbella Rodriguez Primary Care Provider [phone] Encounter Details Date Type Department Care Team (Late Contact Info) Description 06/06/[address] [facility] MEDICINE [address] [place] [address] Marbella Rodriguez FNP [address] [place] [address] Social History Tobacco Use Types Packs/Day Years [...] Department Care Team (Late Contact Info) Description 04/01/2025 9:00 AM EDT Office Visit [facility] ADULT DENTAL [address] [place] [address] Fernando Walsh, DMD [address] [place] [address] documented as of this encounter Visit Diagnoses Not on filedocumented in this encounter Care Teams Landfill Gas Technician Relationship Specialty Start Date End Date Marbella Rodriguez FNP [address] [place] [address] PCP - General Family Medicine 03/05/22 documented as of this encounter
--- OUTSIDE RECORDS SUMMARY | 2025-03-17 18:41 | XMS_ITS | Encounter Summary ---
Author Organization [employer] Address [address] [facility] 7 [place] [address] Care Team Providers Care Railroad Car Truck Builder Name Role Phone Marbella Rodriguez Primary Care Provider [phone] Encounter Details Date Type Department Care Team ([facility] Contact Info) Description 07/10/2022 Orders Only [facility] [address] [place], [place] [id number] Colleen Conteh LPN Social History Tobacco Use [...] Description 04/01/2025 9:00 AM EDT Office Visit [facility] ADULT DENTAL [address] [place] [address] Fernando Walsh DMD [address] [place] [address] documented as of this encounter Visit Diagnoses Not on filedocumented in this encounter Care Teams Railroad Car Truck Builder Relationship Specialty Start Date End Date Marbella Rodriguez FNP [address] [place] [address] PCP - General Family Medicine 03/05/22 documented as of this encounter
--- OUTSIDE RECORDS SUMMARY | 2025-03-17 18:41 | XMS_ITS | Encounter Summary ---
Author Organization [employer] Address [address] [facility] [address]t [place] [address] Care Team Providers Care Commercial Airplane Pilot Name Role Phone Marbella Rodriguez Primary Care Provider [phone] Reason for Visit * Reason Comments Med Refill Encounter Details Date Type Department Care Team ([facility] st Contact Info) Description 06/10/2023 Refill [facility] [address] [place] [address] Marbella Rodriguez FNP [address] [place] [address] Routine health maintenance Social History Tobacco Use [...] Description 04/01/2025 9:00 AM EDT Office Visit [facility] ADULT DENTAL [address] [place] [address] Fernando Walsh, DMD [address] [place] [address] documented as of this encounter Visit Diagnoses Diagnosis Routine health maintenance Unspecified examination documented in this encounter Additional Health Concerns Assessment Noted Time PHQ-9 Depression Total Score: 6 05/23/20 23 4:38 PM EST documented as of this encounter Care Teams Commercial Airplane Pilot Relationship Specialty Start Date End Date Marbella Rodriguez FNP [address] [place] [address] PCP - General Family Medicine 03/05/22 documented as of this encounter
--- OUTSIDE RECORDS SUMMARY | 2025-03-17 18:41 | XMS_ITS | Encounter Summary ---
Author Organization [employer] Address [address] [facility] 7 [place] [address] Care Team Providers Care Broomcorn Grader Name Role Phone Marbella Rodriguez Primary Care Provider [phone] Reason for Visit * Reason Comments Med Refill Encounter Details Date Type Department Care Team ([facility] Contact Info) Description 12/14/2022 Refill [facility]BILE [facility]ACCINE CLINIC [address] [place] [address] Marbella Rodriguez FNP [address] [place] [address] Routine health maintenance Social History Tobacco Use [...] Upcoming Encounters Date Type Department Care Team ([facility] Contact Info) Description 04/01/2025 9:00 AM EDT Office Visit [facility] ADULT DENTAL [address] [place] [address] Fernando Walsh, KARINA [address] [place] [address] documented as of this encounter Visit Diagnoses Diagnosis Routine health maintenance Unspecified examination documented in this encounter Care Teams Broomcorn Grader Relationship Specialty Start Date End Date Marbella Rodriguez FNP [address] [place] [address] PCP - General Family Medicine 03/05/22 documented as of this encounter
--- OUTSIDE RECORDS SUMMARY | 2025-03-17 18:41 | XMS_ITS | Clinical Summary ---
Author Organization [employer] Address [address] [facility] 7 [place] [address] Care Team Providers Care Computer Artist Name Role Phone Marbella Rodriguez VEHICLE WASHER Primary Care Provider [phone] Allergies Active Allergy Reactions Criticality Noted Date [...] Type 2 diabetes mellitus treated without insulin ([facility]) USE DIRECTED TO TEST BLOOD SUGAR TWICE [...] right kidney 09/07/2022 Overview (03/01/2024): -Followed by [facility], MERLENE Dove -Ultrasound 09/01/23: IMPRESSION: LEFT KIDNEY: Normal RIGHT KIDNEY: Severe hydronephrosis, stable -Mar 2023: [facility]. Renogram revealed left 100% functional and [...] from family and friends Previous referral for PRODUCTION CONTROL SPECIALIST placed, phone numbers provided today for patient/sister [...] Provider, Generic External Data 03/08/2025 Orders Only [facility] External Provider, [facility] 02/24/2025 Refill [facility] [address] [place] [address] Marbella Rodriguez FNP Kidney stone 01/04/2025 Orders Only GENERIC EXTERNAL DATA DEPARTMENT Provider, Generic External Data 12/27/2024 Refill [facility] [address] [place] [address] Marbella Rodriguez FNP from Last 3 Months [...] Description 04/01/2025 9:00 AM EDT Office Visit [facility] ADULT DENTAL [address] [place], [place] [phone] Fernando Walsh, DMD [address] [place], [place] [phone] Health Maintenance Due Date Last Done Comments CT Colonography 1960 FIT DNA/Cologuard 1960 FIT 1960 FOBT 1960 Sigmoidoscopy 1960 Eye Exam 1970 Pneumococcal Vaccine: 50+ Years (1 of 2 - PCV) 09/17/1979 Dental X-Ray: Full Mouth 12/13/2014 12/13/2011 Dental Oral Exam 10/22/2017 04/22/2017, , 10/20/2013, Additional history exists Dental Prophylaxis 10/22/2017 04/22/2017, 02/28/2014 Dental X-Ray: Bitewings 04/23/2018 04/22/20 17, 04/25/2014, 10/20/2013, Additional history exists Zoster Vaccines (2 of 2) 11/01/2019 09/06/2019 Diabetes: Urine Protein Screening 04/27/2022 04/27/2021, 12/28/2019 Lipid Panel 10/10/2023 10/09/2022, 04/07, 12/28/2019 DTaP/Tdap/Td Vaccines (2 - Td or Tdap) 12/04/2023 12/03/2013, 07/26/2005 Diabetes: Foot Exam 11/03/2024 11/04/2023, 09/01/2023, 09/01/2023, Additional history exists COVID-19 Vaccine ( season) 2025 Influenza Vaccine (#1) 2025 04/05/2014, 2005 Diabetes: Hemoglobin A1C 04/21/2025 025, 03/01/2024, 09/01/2023, Additional history exists Alcohol/Substance Use Screening 05/07/2025 05/07/2024 Colonoscopy 07/27/2025 07/27/2020 Colorectal Cancer Screening 07/27/2025 Depression Screening 10/20/2025 10/20/2024, 10/21/19 Disability Screening [...] HM COLONOSCOPY Routine 07/27/2020 Routine health maintenance PROPHYLAXIS - ADULT Routine 04/22/2017 1 2:00 AM EDT BITEWINGS - 4 RADIOGRAPHIC IMAGES Routine 04/22/2017 12:00 AM EDT PERIODIC ORAL EVALUATION - ESTABLISHED PATIENT Routine 04/22/2017 12:00 AM EDT INTRAORAL - COMPLETE SERIES OF RADIOGRAPHIC IMAGES Routine 12/13/2011 12:00 AM EDT from Last 3 Months or Most Recently Relevant to Health Maintenance Results * Creatinine, Serum (03/09/2025 10:40 AM EDT) Creatinine, Serum 1.18 0.5 - 1.4 mg/dL [facility] Estimated Glomerular Filt Rate 46 [facility] Comment:Chronic Kidney Disea se: Estimated GFR < 60 mL/min/1.76o6Ovgxkt Kidney Disease: Estimated GFR < 15 mL/min/1.73m2 03/09/2025 10:4 0 AM EDT 03/09/2025 10:42 AM EDT us Generic External Data Provider LAB BLOOD ORDERAB LES Final Result Performing Organization Address City/[facility] Co de Phone Number [facility] [address] [place] [phone] * (ABNORMAL) BUN (Blood Urea Nitrogen) (03/09/2025 10:40 AM EDT) Urea Nitrogen (BUN) 17(H) 9 - 16 mg/dL [facility] 03/09/2025 10:4 0 AM EDT 03/09/2025 10:42 AM EDT us Generic External Data Provider LAB BLOOD ORDERAB LES Final Result Performing Organization Address City/[facility]/ZIP Co de Phone Number [facility] [address] [place] [phone] * US Renal Complete (03/09/2025 10:07 AM EDT) Anatomical Region Laterality Modality Kidney Ultrasound 03/09/2025 10:0 7 AM EDT Narrative 03/09/2025 10:08 AM EDT [address] [address] Ultrasound Report Signed Patient: Destiny Canales I MR#: [id number] 8 : 1960 Acct:[id number] Age/Sex: 64 / F ADM Date: 03/08/25 Loc: HO.US Attending Dr: Nayla CARVALHO- Ordering Physician: Nayla Dove Date of Service: 03/08/25 Procedure(s): US renal BI Accession Number(s): [id number] cc: Nayla Dove; Marbella Rodriguez Reason for Exam: N13.30 - Unspecified hydronephrosis CLINICAL HISTORY: N13.30 - Unspecified hydronephrosis US of kidneys Comparison: US/SR - US KIDNEY BILATERAL - 09/02/24 15:58 EST Findings: Right kidney is not well seen due to limited acoustic window, enlarged due to severe chronic hydronephrosis, nearly indiscernible renal parenchyma, no obvious calculus or mass is seen. Several outside sales representative insurance static sonographic images of the left kidney [...] 03/09/25 1008 DD/ 1007 TD/TT: 03/09/25 1007 Business Technology Analyst: Procedure Note Donotuseinterpreter, Image - 03/09/[address] [address] Ultrasound Report Signed Patient: Destiny Canales [facility]#: [id number] 8 : 1960cct:[id number] Age/Sex: 64 / FADM Date: 03/08/25 Loc: HO.US Attending Dr: Nayla Dove [facility] Ordering Physician: Nayla Dove Date of Service: 03/08/25 Procedure(s): US renal BI Accession Number(s): [id number] [facility]; Marbella RodriguezP Reason for Exam: N13.30 - Unspecified hydronephrosis CLINICAL HISTORY: N13.30 - Unspecified hydronephrosis US of kidneys Comparison: US/SR - US KIDNEY BILATERAL - 09/02/24 15:58 EST Findings: Right kidney is not well seen due to limited acoustic window, enlarged due to severe chronic hydronephrosis, nearly indiscernible renal parenchyma, no obvious calculus or mass is seen. Several outside sales representative insurance static sonographic images of the left kidney [...] 03/09/25 1008 DD/ 1007 TD/TT: 03/09/25 1007 Business Technology Analyst: us [facility] External Provider IMG US PROCEDURES Final Result * Syphilis Screen (01/04/2025 4:05 PM EDT) Syphilis Screen Nonreactive Nonreactive [facility] 01/04/2025 4:05 PM EDT 01/04/2025 4:06 PM EDT Generic External Data Provider LAB BLOOD ORDERAB LES Final Result Performing Organization Address [facility] Co de Phone Number [facility] [address] [place] [phone] * Hepatitis C Antibody with Reflex to HCV, RNA, Quantitative, Real-Time PCR (01/04/2025 4:05 PM EDT) Hepatitis C Antibody Nonreactive Nonreactive [facility] Comment:Antibodies to HCV no t detected; does not exclude early acuteHCV infection. 01/04/2025 4:05 PM EDT 01/04/2025 4:06 PM EDT Generic External Data Provider LAB BLOOD ORDERAB LES Final Result Performing Organization Address [facility] de Phone Number [facility] [address] [place] [phone] * Hepatitis B Core??Antibody (IgM) (01/04/2025 4:05 PM EDT) Hepatitis B Core Antibody IgM NON-REACTI VE NON-REACTI VE [facility] Comment:For additional infor mation, please refer tohttp://education.[employer]/faq/XGB909(This link is being provided for informational/educational purposes only.)THIS TEST WAS PERFORMED AT:[facility] [place] [phone] KLEIN MD 01/04/2025 4:05 PM EDT 01/04/2025 4:06 PM EDT Generic External Data Provider LAB BLOOD ORDERAB LES Final Result Performing Organization Address [facility] Co de Phone Number [facility] [address] [place] [phone] * Hepatitis B Core Antibody, Total (01/04/2025 4:05 PM EDT) Hepatitis B Core Antibody Reactive Nonreactive [facility] Comment:Presumptive evidence of anti-HBc. 01/04/2025 4:05 PM EDT 01/04/2025 4:06 PM EDT Generic External Data Provider LAB BLOOD ORDERAB LES Final Result Performing Organization Address City/[facility]/ZIP Co de Phone Number [facility] [address] [place] [phone] [phone] * HIV-1/2 Antigen and Antibodies, Fourth Generation, with Reflexes (01/04/2025 4:05 PM EDT) HIV AB/AG Nonreactive Nonreactive [facility] Comment:HIV-1 p24 Ag and/or HIV-1/HIV-2 Ab not detected.A test result that is nonreactive does not exclude thepossibility of exposure to or infection with HIV-1 and/orHIV-2. Nonreactive results in this assay for individualswith prior exposure to HIV-1 and/or HIV-2 may be due toantigen and antibody levels that are below the limit ofdetection of this assay.The [employer] HIV Ag/Ab Combo assay result andsupplemental assay results should be interpreted inconjunction with the patient's clinical presentation,history and other laboratory results. If the results areinconsistent with clinical evidence, additional testing issuggested to confirm the result. 01/04/2025 4:05 PM EDT 01/04/2025 4:06 PM EDT us Generic External Data Provider LAB BLOOD ORDERAB LES Final Result Performing Organization Address City/[facility]/ZIP Co de Phone Number [facility] [address] [place] [phone] [phone] * BI Mammogram Screening Tomosynthesis Bilateral (01/03/2025 3:18 PM EDT) Anatomical Region Laterality Modality Breast Bilateral Mammography 01/03/2025 3:18 PM EDT Narrative 01/16/2025 8:33 PM EDT [address] [place] [address] Mammography Report Signed Patient: Destiny Canales I MR#: [id number] 8 : 1960 Acct:[id number] Age/Sex: 64 / F ADM Date: 01/03/25 Loc: HO.MAMMO Attending Dr: Marbella Rodriguez VEHICLE WASHER Ordering Physician: Marbella Rodriguez VEHICLE WASHER Results: 2Benig n Findings Date of Service: 01/03/25 Follow Up: 1 Year From Orig inal Mammogram Procedure(s): MM tomosynthesis screening BI Accession Number(s): [id number] cc: Marbella Rodriguez VEHICLE WASHER EXAMINATION: MM SCREENING DIGITAL BREAST TOMOSYNTHESIS, BILATERAL [...] Krystyna Lucas DO 01/16/2025 08:30 PM EDT Dictated By: Krystyna Lucas DO Signed By: <Electronically signed by Krystyna Lucas DO in OV> 01/16/252029 DD/ 17 TD/TT: 01/03/25 1530 Business Technology Analyst: Procedure Note Donotuseinterpreter, Image - 01/16/[address] [place] [address] Mammography Report Signed Patient: Destiny Canales IMR#: [id number] 8 : 1Acct:[id number] Age/Sex: 64 / FADM Date: 01/03/25 Loc: HO.MAMMO Attending Dr: Marbella OLIVARESP Ordering Physician: Marbella RodriguezPResults: 2Benig n Findings Date of Service: 01/03/25Follow Up: 1 Year From Orig inal Mammogram Procedure(s): MM tomosynthesis screening BI Accession Number(s): [id number] cc: Marbella Rodriguez VEHICLE WASHER EXAMINATION: MM SCREENING DIGITAL BREAST TOMOSYNTHESIS, BILATERAL [...] Krystyna Lucas DO 01/16/2025 08:30 PM EDT Dictated By: Krystyna Lucas DO Signed By: <Electronically signed by Krystyna Lucas DO in OV> 01/16/252029 DD/ 1518 TD/TT: 01/03/25 1530 Business Technology Analyst: Marbella CARVALHO IMG BI PROCEDURES Edited Resul t - Final * POCT HGB A1C (10/20/2024 3:47 PM EDT) Hemoglobin A1C 6.0 4.0 - 6.0 % QC Media Lot # [id number] Lot# Expiration Date [id number] Blood 10/20/2024 3:47 PM EDT Result [facility] us Marbella Rodriguez [facility] POINT OF CARE TEST ENTER/EDIT ORDERABLES Final Result * Referral to Podiatry (11/04/2023) us Marbella Rodriguez [facility] OUTPATIENT REFERRAL ORDERABLES Final Result * (ABNORMAL) Lipid Panel, Standard (10/09/2022 8:52 AM EDT) Cholesterol, Total 172 <200 mg/dL [facility] [employer] HDL Cholesterol 58 > OR = 50 mg/dL [facility] [employer] Triglycerides 59 <150 mg/dL [facility] [employer] LDL Cholesterol 100(H) mg/dL (calc) [facility] [employer] Comment: Reference range: <100 Desirable range <100 mg/dL for primary prevention; <70 mg/dL for patients with CHD or diabetic patients with > or = 2 CHD risk factors. LDL-C is now calculated using the Elmer-Osmany calculation, which is a validated novel method providing better accuracy than the Friedewald equation in the estimation of LDL-C. Elmer SS et al. BETTINA. 2013;310(19): 9848-4657 (http://education.[employer]/faq/VNS015) Chol/HDLC Ratio 3.0 <5.0 (calc) [facility] [employer] Non-HDL Cholesterol 114 <130 mg/dL (calc) [facility] [employer] Comment: For patients with diabetes plus 1 [...] FOR COLLECTION. FASTING: YES us Marbella Rodriguez VEHICLE WASHER LAB BLOOD ORDERABLES Final Res ult [facility] [address], [place] [address] [facility] [address] [place] [phone] * HPV mRNA E6/E7 w/Reflex to HPV Genotypes 16, 18/45 (09/26/2022 3:05 PM EDT) HPV nRNA E6/E7 Not Detected Not Detected [facility] Comment:Methodology: Transcr iption-Mediated AmplificationThis assay detects E6/E7 viral messenger RNA (mRNA) from 14high-risk HPV types (16,18,31,33,35,39,45,51,52,56,58,59,66,68).Cervical sources are required for HPV testing.If a vaginal source from a patient who has had atotal hysterectomy with removal of cervix wassubmitted, please contact the testing laboratoryfor alternative testing options.For additional information, please refer tohttp://education.[employer]/faq/YMN192h2(This link if provided for information/educational purposes only.)THIS TEST WAS PERFORMED AT:[facility] [place] [phone] KLEIN MD HPV mRNA E6/E7 [facility] HPV 16 [facility] HPV 18/45 RNA [facility] 09/26/2022 3:05 PM EDT 09/27/2022 9:45 AM EDT [facility] External Provider LAB CYT OLOGY ORDERABLES Final Result Performing Organization Address [facility]/ZIP Co de Phone Number [facility] [address] [place] [phone] [phone] * Pap Smear (09/26/2022 3:05 PM EDT) 09/26/2022 3:05 PM EDT 09/27/2022 9:45 AM EDT Narrative [facility] - 10/07/2022 12:02 PM EDT ----- ------- Name: Destiny Canales I Age/Sex: 62/F : 1960 Unit#: [id number] Attend Dr: Holly Shook CNM Re09/26/22 Status: DEP REF Location: [facility] Disch: ----- ------- SPEC : [id number] RECD: 09/27/22-944 STATUS: RADHA SANTOS NUM: [id number] DAISHA: 09/26/22-[address] [facility] [address]: Holly Shook CNM ENTERED: 09/27/22-1001 SP TYPE: Pap Smr OT DR: Marbella Rodriguez [facility] ORDERED: Pap Smear Interpretation Satisfactory for evaluation. Negative for intraepithelial lesion or malignancy. HPV mRNA E6/E7: NOT DETECTED This assay detects E6/E7 viral messenger RNA (mRNA) from 14 high-risk HPV types (16, 18, 31, 33, 35, 39, 45, 51, 52, 56, 58, 59, 66, 68) HPV testing performed by [facility], [place], [place]. See reference laboratory portion of the EMR for entire report. Clinical Information LMP: Menopausal Previous PAP test: 2021, WNL Material Received ThinPrep-Cervical Copies To: Holly Shook CNM [address] [place] [address] [address] Marbella Rodriguez VEHICLE WASHER [address] [place] [address] ----- ------- Signed (signature on file) Yahaira Fang 10/07/22 1202 ----- ------- END OF REPORT [facility] External Provider LAB CYT OLOGY ORDERABLES Final Result [facility] [address] [place] [address] [phone] * ALBUMIN, RANDOM URINE W/CREATININE (04/27/2021 10:04 AM EDT) Microalbumin Urine 2.3 See Note: mg/dL [facility] Comment: Reference Range: Reference Range [...] Creatinine, Urine 102 20 - 275 mg/dL [facility] 04/27/2021 10:0 4 AM EDT Keli Emery NP LAB URINE ORDERABLES Final Res ult [facility] * (ABNORMAL) Colonoscopy (07/27/2020) Colonoscopy Abnormal(A ) Normal Narrative Marbella Rodriguez FNP - 07/27/2020 [facility] [place] Dr. Mae. Plan: 5 year follow up us Historical Provider HEALTH MAINTENANCE Final Result from Last 3 Months or Most Recently Relevant to Health Maintenance Insurance [facility] C3 DENTAL-[facility] MEDICAID STAND ADULT Care Teams Computer Artist Relationship Specialty Start Date End Date Marbella Rodriguez FNP [address] [place] [address] PCP - General Family Medicine 03/05/22
== END 2025-03-17 16:25 | disposition home or self-care (01) ==
LOC: HO.HUSH 15:34
PROVIDERS: PCP Registered Nurse; Visit Provider Nurse Practitioner Family
DX: N13.30 Unspecified hydronephrosis (principal); N26.1 Atrophy of kidney (terminal); N20.0 Calculus of kidney; Z13.9 Encounter for screening, unspecified
CPT/HCPCS: 99213

== ENCOUNTER → 2025-03-17 15:33 | Outpatient (BNVA) | payer MEDICAID, SELFPAY | PROVIDERS: PCP Registered Nurse; Visit Provider Nurse Practitioner Family | DX: N20.0 Calculus of kidney (principal); N26.1 Atrophy of kidney (terminal); N13.30 Unspecified hydronephrosis; R39.15 Urgency of urination | CPT/HCPCS: 81003; 99212 ==

== ENCOUNTER 2025-03-24 16:14 | Outpatient (REF) | payer MEDICAID, SELFPAY ==
--- NOTE | ~2025-03-24 | US_ITS ---
EXAMINATION: US PELVIS CLINICAL INFORMATION: Pelvic and perineal pain COMPARISON: May 31, 2024 TECHNIQUE: Ultrasound of the pelvis is performed using both transabdominal and transvaginal transducers along with Doppler. Transvaginal imaging is performed due to inadequate visualization transabdominally. FINDINGS: Uterus: The uterus is anteverted and measures 5.4 x 1.7 x 3.9 cm. The double wall endometrial thickness is 2 mm. The uterus is smooth in contour and has normal myometrial echogenicity. No visible fibroid. Adnexa: There is no right ovarian torsion. There is no pelvic ascites or fluid collection. Right ovary measures 1.7 x 1.6 x 1.5 cm. Left ovary not visualized. US/US pelvic and transvaginal IMPRESSION: Nonvisualized left ovary, otherwise unremarkable exam Electronically signed by: Kerwin Hernandez MD 03/24/2025 05:26 PM EDT
--- OUTSIDE RECORDS SUMMARY | 2025-03-24 17:17 | XMS_ITS | Encounter Summary ---
Author Organization [employer] Address [address] [facility] 7 [place] [address] Care Team Providers Care Scanning Manager Name Role Phone Marbella Rodriguez Primary Care Provider [phone] Encounter Details Date Type Department Care Team ([facility] Contact Info) Description 07/10/2022 Orders Only [facility] [address] [place], [place] [phone] Colleen Conteh LPN Social History Tobacco Use [...] Description 04/01/2025 9:00 AM EDT Office Visit [facility] ADULT DENTAL [address] [place] [address] Fernando Walsh DMD [address] [place] [address] documented as of this encounter Visit Diagnoses Not on filedocumented in this encounter Care Teams Scanning Manager Relationship Specialty Start Date End Date Marbella Rodriguez FNP [address] [place] [address] PCP - General Family Medicine 03/05/22 documented as of this encounter
--- OUTSIDE RECORDS SUMMARY | 2025-03-24 17:17 | XMS_ITS | Encounter Summary ---
Author Organization [employer] Address [address] [facility] 7 [place] [address] Care Team Providers Care Braddisher Name Role Phone Marbella Rodriguez Primary Care Provider [phone] Encounter Details Date Type Department Care Team (Late Contact Info) Description 06/06/2022 Orders Only [facility] [address] [place] [address] Marbella Rodriguez FNP [address] [place] [address] Social History Tobacco Use Types Packs/Day Years [...] AM EDT Office Visit [facility] ADULT DENTAL [address] [place] [address] Fernando Walsh, DMD [address] [place] [address] documented as of this encounter Visit Diagnoses Not on filedocumented in this encounter Care Teams Braddisher Relationship Specialty Start Date End Date Marbella Rodriguez FNP [address] [place] [address] PCP - General Family Medicine 03/05/22 documented as of this encounter
--- OUTSIDE RECORDS SUMMARY | 2025-03-24 17:18 | XMS_ITS | Clinical Summary ---
Author Organization [employer] Address [address] [facility] 7 [place] [address] Care Team Providers Care Air Liaison And Special Staff Name Role Phone Marbella Rodriguez REPAIRER SASH AND DOOR Primary Care Provider [phone] Allergies Active Allergy Reactions Criticality Noted Date [...] Type 2 diabetes mellitus treated without insulin ([facility]) USE DIRECTED TO TEST BLOOD SUGAR [...] right kidney 09/07/2022 Overview (03/01/2024): -Followed by [facility], MERLENE Dove -Ultrasound 09/01/23: IMPRESSION: LEFT KIDNEY: Normal RIGHT KIDNEY: Severe hydronephrosis, stable -Mar 2023: [facility] Urology. Renogram revealed left 100% functional and [...] from family and friends Previous referral for CATTLE TRADER placed, phone numbers provided today for patient/sister [...] Provider, Generic External Data 03/08/2025 Orders Only [facility] External Provider, [facility] 02/24/2025 Refill [facility] [address] [place] [address] Marbella Rodriguez FNP Kidney stone 01/04/2025 Orders Only GENERIC EXTERNAL DATA DEPARTMENT Provider, Generic External Data 12/27/2024 Refill [facility] [address] [place] [address] Marbella Rodriguez FNP from Last 3 Months [...] Description 04/01/2025 9:00 AM EDT Office Visit [facility]ULT DENTAL [address] [place], [place] [phone] Fernando Walsh, DMD [address] [place], [place] [phone] Health Maintenance Due Date Last Done Comments [...] Creatinine, Serum 1.18 0.5 - 1.4 mg/dL [facility] Estimated Glomerular Filt Rate 46 [facility] Comment:Chronic Kidney Disea se: Estimated GFR < 60 mL/min/1.67n4Ubgzvm Kidney Disease: Estimated GFR < 15 mL/min/1.73m2 03/09/2025 10:4 0 AM EDT 03/09/2025 10:42 AM EDT us Generic External Data Provider LAB BLOOD ORDERAB LES Final Result Performing Organization Address [facility] Co de Phone Number [facility] [address] [place] [phone] * (ABNORMAL) BUN (Blood Urea Nitrogen) (03/09/2025 10:40 AM EDT) Urea Nitrogen (BUN) 17(H) 9 - 16 mg/dL [facility] 03/09/2025 10:4 0 AM EDT 03/09/2025 10:42 AM EDT us Generic External Data Provider LAB BLOOD ORDERAB LES Final Result Performing Organization Address City/[facility]/ZIP Co de Phone Number [facility] [address] [place] [phone] * US Renal Complete (03/09/2025 10:07 AM EDT) Anatomical Region Laterality Modality Kidney Ultrasound 03/09/2025 10:0 7 AM EDT Narrative 03/09/2025 10:08 AM EDT [address] [address] Ultrasound Report Signed Patient: Destiny Canales I MR#: [id number] 8 : 1960 Acct:[id number] Age/Sex: 64 / F ADM Date: 03/08/25 Loc: HO.US Attending Dr: Nayla CARVALHO- Ordering Physician: Nayla Dove Date of Service: 03/08/25 Procedure(s): US renal BI Accession Number(s): [id number] cc: Nayla Dove; Marbella Rodriguez Reason for Exam: N13.30 - Unspecified hydronephrosis CLINICAL HISTORY: N13.30 - Unspecified hydronephrosis US of kidneys Comparison: US/SR - US KIDNEY BILATERAL - 09/02/24 15:58 EST Findings: Right kidney is not well seen due to limited acoustic window, enlarged due to severe chronic hydronephrosis, nearly indiscernible renal parenchyma, no obvious calculus or mass is seen. Several business services sales representative static sonographic images of the left [...] 03/09/25 1008 DD/ 1007 TD/TT: 03/09/25 1007 Information Tech: Procedure Note Donotuseinterpreter, Image - 03/09/[address] [address] Ultrasound Report Signed Patient: Destiny Canales [facility]#: [id number] 8 : 1960cct:[id number] Age/Sex: 64 / FADM Date: 03/08/25 Loc: HO.US Attending Dr: Nayla Dove [facility] Ordering Physician: Nayla Dove Date of Service: 03/08/25 Procedure(s): US renal BI Accession Number(s): [id number] [facility] Marbella RodriguezP Reason for Exam: N13.30 - Unspecified hydronephrosis CLINICAL HISTORY: N13.30 - Unspecified hydronephrosis US of kidneys Comparison: US/SR - US KIDNEY BILATERAL - 09/02/24 15:58 EST Findings: Right kidney is not well seen due to limited acoustic window, enlarged due to severe chronic hydronephrosis, nearly indiscernible renal parenchyma, no obvious calculus or mass is seen. Several business services sales representative static sonographic images of the left [...] 03/09/25 1008 DD/ 1007 TD/TT: 03/09/25 1007 Information Tech: us [facility] External Provider IMG US PROCEDURES Final Result * Syphilis Screen (01/04/2025 4:05 PM EDT) Syphilis Screen Nonreactive Nonreactive [facility] 01/04/2025 4:05 PM EDT 01/04/2025 4:06 PM EDT Generic External Data Provider LAB BLOOD ORDERAB LES Final Result Performing Organization Address [facility] Co de Phone Number [facility] [address] [place] [phone] * Hepatitis C Antibody with Reflex to HCV, RNA, Quantitative, Real-Time PCR (01/04/2025 4:05 PM EDT) Hepatitis C Antibody Nonreactive Nonreactive [facility] Comment:Antibodies to HCV no t detected; does not exclude early acuteHCV infection. 01/04/2025 4:05 PM EDT 01/04/2025 4:06 PM EDT Generic External Data Provider LAB BLOOD ORDERAB LES Final Result Performing Organization Address [facility] de Phone Number [facility] [address] [place] [phone] * Hepatitis B Core??Antibody (IgM) (01/04/2025 4:05 PM EDT) Hepatitis B Core Antibody IgM NON-REACTI VE NON-REACTI VE [facility] Comment:For additional infor mation, please refer tohttp://education.Diana/faq/WOX067(This link is being provided for informational/educational purposes only.)THIS TEST WAS PERFORMED AT:[facility] [place] [phone] KLEIN MD 01/04/2025 4:05 PM EDT 01/04/2025 4:06 PM EDT Generic External Data Provider LAB BLOOD ORDERAB LES Final Result Performing Organization Address [facility] Co de Phone Number [facility] [address] [place] [phone] * Hepatitis B Core Antibody, Total (01/04/2025 4:05 PM EDT) Hepatitis B Core Antibody Reactive Nonreactive [facility] Comment:Presumptive evidence of anti-HBc. 01/04/2025 4:05 PM EDT 01/04/2025 4:06 PM EDT Generic External Data Provider LAB BLOOD ORDERAB LES Final Result Performing Organization Address City/[facility]/ZIP Co de Phone Number [facility] [address] [place] [phone] * HIV-1/2 Antigen and Antibodies, Fourth Generation, with Reflexes (01/04/2025 4:05 PM EDT) HIV AB/AG Nonreactive Nonreactive [facility] Comment:HIV-1 p24 Ag and/or HIV-1/HIV-2 Ab not detected.A test result that is nonreactive does not exclude thepossibility of exposure to or infection with HIV-1 and/orHIV-2. Nonreactive results in this assay for individualswith prior exposure to HIV-1 and/or HIV-2 may be due toantigen and antibody levels that are below the limit ofdetection of this assay.The [employer] HIV Ag/Ab Combo assay result andsupplemental assay results should be interpreted inconjunction with the patient's clinical presentation,history and other laboratory results. If the results areinconsistent with clinical evidence, additional testing issuggested to confirm the result. 01/04/2025 4:05 PM EDT 01/04/2025 4:06 PM EDT us Generic External Data Provider LAB BLOOD ORDERAB LES Final Result Performing Organization Address City/[facility]/ZIP Co de Phone Number [facility] [address] [place] [phone] * BI Mammogram Screening Tomosynthesis Bilateral (01/03/2025 3:18 PM EDT) Anatomical Region Laterality Modality Breast Bilateral Mammography 01/03/2025 3:18 PM EDT Narrative 01/16/2025 8:33 PM EDT [address] [place] [address] Mammography Report Signed Patient: Destiny Canales I MR#: [id number] 8 : 1960 Acct:[id number] Age/Sex: 64 / F ADM Date: 01/03/25 Loc: HO.MAMMO Attending Dr: Marbella Rodriguez REPAIRER SASH AND DOOR Ordering Physician: Marbella Rodriguez REPAIRER SASH AND DOOR Results: 2Benig n Findings Date of Service: 01/03/25 Follow Up: 1 Year From Orig inal Mammogram Procedure(s): MM tomosynthesis screening BI Accession Number(s): [id number] cc: Marbella Rodriguez REPAIRER SASH AND DOOR EXAMINATION: MM SCREENING DIGITAL BREAST TOMOSYNTHESIS, BILATERAL [...] OV> 01/16/252029 DD/ 17 TD/TT: 01/03/25 1530 Information Tech: Procedure Note Donotuseinterpreter, Image - 01/16/[address] [place] [address] Mammography Report Signed Patient: Destiny Canales IMR#: [id number] 8 : 1Acct:[id number] Age/Sex: 64 / FADM Date: 01/03/25 Loc: HO.MAMMO Attending Dr: Marbella OLIVARESP Ordering Physician: Marbella RodriguezPResults: 2Benig n Findings Date of Service: 01/03/25Follow Up: 1 Year From Orig inal Mammogram Procedure(s): MM tomosynthesis screening BI Accession Number(s): [id number] cc: Marbella Rodriguez REPAIRER SASH AND DOOR EXAMINATION: MM SCREENING DIGITAL BREAST TOMOSYNTHESIS, BILATERAL [...] OV> 01/16/252029 DD/ 1518 TD/TT: 01/03/25 1530 Information Tech: Marbella CARVALHO IMG BI PROCEDURES Edited Resul t - Final * POCT HGB A1C (10/20/2024 3:47 PM EDT) Hemoglobin A1C 6.0 4.0 - 6.0 % QC Media Lot # [id number] Lot# Expiration Date [id number] Blood 10/20/2024 3:47 PM EDT Result On License Of [facility] us Marbella Rodriguez [facility] POINT OF CARE TEST ENTER/EDIT ORDERABLES Final Result * Referral to Podiatry (11/04/2023) us Marbella Rodriguez [facility] OUTPATIENT REFERRAL ORDERABLES Final Result * (ABNORMAL) Lipid Panel, Standard (10/09/2022 8:52 AM EDT) Cholesterol, Total 172 <200 mg/dL [facility] [place] [facility] HDL Cholesterol 58 > OR = 50 mg/dL [facility] [place] [facility] Triglycerides 59 <150 mg/dL [facility] [place] [facility] LDL Cholesterol 100(H) mg/dL (calc) [facility] [place] [facility] Comment: Reference range: <100 Desirable range <100 mg/dL for primary prevention; <70 mg/dL for patients with CHD or diabetic patients with > or = 2 CHD risk factors. LDL-C is now calculated using the Elmer-Osmany calculation, which is a validated novel method providing better accuracy than the Friedewald equation in the estimation of LDL-C. Elmer SS et al. BETTINA. 2013;310(19): 8542-3713 (http://education.Club [place]ones/faq/IFI049) Chol/HDLC Ratio 3.0 <5.0 (calc) [facility] [place] [facility] Non-HDL Cholesterol 114 <130 mg/dL (calc) [facility] [place] [facility] Comment: For patients with diabetes plus 1 [...] FOR COLLECTION. FASTING: YES us Marbella Rodriguez REPAIRER SASH AND DOOR LAB BLOOD ORDERABLES Final Res ult [facility] [address], [place] [address] [facility] [address] [place] [phone] * HPV mRNA E6/E7 w/Reflex to HPV Genotypes 16, 18/45 (09/26/2022 3:05 PM EDT) HPV nRNA E6/E7 Not Detected Not Detected [facility] Comment:Methodology: Transcr iption-Mediated AmplificationThis assay detects E6/E7 viral messenger RNA (mRNA) from 14high-risk HPV types (16,18,31,33,35,39,45,51,52,56,58,59,66,68).Cervical sources are required for HPV testing.If a vaginal source from a patient who has had atotal hysterectomy with removal of cervix wassubmitted, please contact the testing laboratoryfor alternative testing options.For additional information, please refer tohttp://education.Diana/faq/MQP938p0(This link if provided for information/educational purposes only.)THIS TEST WAS PERFORMED AT:[facility] [place] [phone] KLEIN MD HPV mRNA E6/E7 [facility] HPV 16 RNA [facility] HPV 18/45 RNA [facility] 09/26/2022 3:05 PM EDT 09/27/2022 9:45 AM EDT [facility] External Provider LAB CYT OLOGY ORDERABLES Final Result Performing Organization Address [facility]/ZIP Co de Phone Number [facility] [address] [place] [address] [phone] * Pap Smear (09/26/2022 3:05 PM EDT) 09/26/2022 3:05 PM EDT 09/27/2022 9:45 AM EDT Narrative [facility] - 10/07/2022 12:02 PM EDT ----- ------- Name: Destiny Canales I Age/Sex: 62/F : 1960 Unit#: [id number] Attend Dr: Holly Shook CNM Re09/26/22 Status: DEP REF Location: [facility] Disch: ----- ------- SPEC : [id number] RECD: 09/27/22-944 STATUS: RADHA SANTOS NUM: [id number] DAISHA: 09/26/22-[address] [facility] [address]: Holly Shook CNM ENTERED: 09/27/22-1001 SP TYPE: Pap Smr OT DR: Marbella Rodriguez [facility] ORDERED: Pap Smear Interpretation Satisfactory for evaluation. Negative for intraepithelial lesion or malignancy. HPV mRNA E6/E7: NOT DETECTED This assay detects E6/E7 viral messenger RNA (mRNA) from 14 high-risk HPV types (16, 18, 31, 33, 35, 39, 45, 51, 52, 56, 58, 59, 66, 68) HPV testing performed by [facility], [place], [place]. See reference laboratory portion of the EMR for entire report. Clinical Information LMP: Menopausal Previous PAP test: 2021, WNL Material Received ThinPrep-Cervical Copies To: Holly Shook CNM [address] [place] [address] [address] Marbella Rodriguez REPAIRER SASH AND DOOR [address] [place] [address] ----- ------- Signed (signature on file) Yahaira Fang 10/07/22 1202 ----- ------- END OF REPORT [facility] External Provider LAB CYT OLOGY ORDERABLES Final Result [facility] [address] [place] [address] [phone] * ALBUMIN, RANDOM URINE W/CREATININE (04/27/2021 10:04 AM EDT) Microalbumin Urine 2.3 See Note: mg/dL [facility] Comment: Reference Range: Reference Range [...] Creatinine, Urine 102 20 - 275 mg/dL [facility] 04/27/2021 10:0 4 AM EDT Keli Emery NP LAB URINE ORDERABLES Final Res ult [facility] [address] * (ABNORMAL) Colonoscopy (07/27/2020) Colonoscopy Abnormal(A ) Normal Narrative Marbella Rodriguez FNP - 07/27/2020 [facility] - Dr. Mae. Plan: 5 year follow up us Historical Provider HEALTH MAINTENANCE Final Result from Last 3 Months or Most Recently Relevant to Health Maintenance Insurance [facility] C3 DENTAL-[facility] MEDICAID STAND ADULT Care Teams Air Liaison And Special Staff Relationship Specialty Start Date End Date Marbella Rodriguez FNP [address] [place] [address] PCP - General Family Medicine 03/05/22
--- OUTSIDE RECORDS SUMMARY | 2025-03-24 17:18 | XMS_ITS | Encounter Summary ---
Author Organization [employer] Address [address] [facility] 7t [place] [address] Care Team Providers Care Upholstery Bundler Name Role Phone Marbella Rodriguez Primary Care Provider [phone] Reason for Visit * Reason Comments Med Refill Encounter Details Date Type Department Care Team ([facility] st Contact Info) Description 06/10/2023 Refill [facility] [address] [place] [address] Marbella Rodriguez FNP [address] [place] [address] Routine health maintenance Social History Tobacco Use [...] Description 04/01/2025 9:00 AM EDT Office Visit [facility] ADULT DENTAL [address] [place] [address] Fernando Walsh, DMD [address] [place] [address] documented as of this encounter Visit Diagnoses Diagnosis Routine health maintenance Unspecified examination documented in this encounter Additional Health Concerns Assessment Noted Time PHQ-9 Depression Total Score: 6 05/23/20 23 4:38 PM EST documented as of this encounter Care Teams Upholstery Bundler Relationship Specialty Start Date End Date Marbella Rodriguez FNP [address] [place] [address] PCP - General Family Medicine 03/05/22 documented as of this encounter
--- OUTSIDE RECORDS SUMMARY | 2025-03-24 17:18 | XMS_ITS | Encounter Summary ---
Author Organization [employer] Address [address] [facility] 7t [place] [address] Care Team Providers Care Glost Placer Name Role Phone Marbella Rodriguez Primary Care Provider [phone] Reason for Visit * Reason Onset Date Comments Results 08/05/2023 Encounter Details Date Type Department Care Team ([facility] st Contact Info) Description 08/05/[address] [facility] MED[facility]INE [address] [place] [address] Marbella Rodriguez FNP [address] [place] [address] Results Social History Tobacco Use Types Packs/Day [...] results: mammogram Date when done: N/A Facility[place] [facility] documented in this encounter Plan of Treatment Upcoming Encounters Date Type Department Care Team (Late st Contact Info) Description 04/01/2025 9:00 AM EDT Office Visit [facility] ADULT DENTAL [address] [place] [address] Fernando Walsh DMD [address] [place] [address] documented as of this encounter Visit Diagnoses Not on filedocumented in this encounter Additional Health Concerns Assessment Noted Time PHQ-9 Depression Total Score: 6 05/23/20 23 4:38 PM EST documented as of this encounter Care Teams Glost Placer Relationship Specialty Start Date End Date Marbella Rodriguez FNP [address] [place] [address] PCP - General Family Medicine 03/05/22 documented as of this encounter
--- OUTSIDE RECORDS SUMMARY | 2025-03-24 17:18 | XMS_ITS | Encounter Summary ---
Author Organization [employer] Address [address] [facility] 7 [place] [address] Care Team Providers Care Edger Machine Operator Name Role Phone Marbella Rodriguez Primary Care Provider [phone] Reason for Visit * Reason Comments Med Refill Encounter Details Date Type Department Care Team ([facility] Contact Info) Description 12/14/2022 Refill [facility] [address] [place] [address] Marbella Rodriguez FNP [address] [place] [address] Routine health maintenance Social History Tobacco Use [...] Upcoming Encounters Date Type Department Care Team ([facility] Contact Info) Description 04/01/2025 9:00 AM EDT Office Visit [facility] ADULT [facility] [address] [place] [address] Fernando Walsh, KARINA [address] [place] [address] documented as of this encounter Visit Diagnoses Diagnosis Routine health maintenance Unspecified examination documented in this encounter Care Teams Edger Machine Operator Relationship Specialty Start Date End Date Marbella Rodriguez FNP [address] [place] [address] PCP - General Family Medicine 03/05/22 documented as of this encounter
== END 2025-03-24 16:15 | disposition home or self-care (01) ==
LOC: HO.US 16:14
PROVIDERS: PCP Registered Nurse; Visit Provider Advanced Practice Midwife
DX: R10.2 Pelvic and perineal pain (principal)
CPT/HCPCS: 76830; 76856

== ENCOUNTER → 2025-03-24 16:16 | Outpatient (BNV) | payer MEDICAID, SELFPAY | PROVIDERS: PCP Registered Nurse; Visit Provider Radiology Diagnostic Radiology | DX: R10.2 Pelvic and perineal pain (principal) | CPT/HCPCS: 76830; 76856 ==

== ENCOUNTER 2025-04-12 13:26 | Outpatient (AMB) | payer MEDICAID, SELFPAY ==
[2025-04-12 13:51] VITALS: BP 128/70
--- NOTE | 2025-04-12 13:51 | MHC.OFFVIS ---
Vital Signs 04/12/25 13:51 Height 5 ft 1 in BP 128/70 Blood Pressure Location Rt brachial Position Sitting Intake Visit Reasons: Ultrasound follow up Strike Operations Officer Required: Yes Strike Operations Officer Language: Data Architect Manager Name: Dennys [id number] Information Interpreted: non-clinical & clinical Storage Brine Worker: Storage Brine Worker Present Allergies acetaminophen (Percocet) Allergy (Severe, Verified 04/12/25 14:01) edema morphine (MORPHINE) Allergy (Intermediate, Verified 04/12/25 14:01) HIVES/REDNESS TO FACE oxycodone (From PERCOCET) Allergy (Intermediate, Verified 04/12/25 14:01) RASH Penicillins (PENICILLINS) Allergy (Intermediate, Verified 04/12/25 14:01) RASH WITH HIVES Is last menstrual period known: Yes Post menopausal: Yes HPI Comments Details: Patient is here today for a follow up pelvic ultrasound, history of prior pelvic pain with the intimacy. She is accompanied by her mother today. She denies any pelvic pain, odors, or dyspareunia. She treated for BV in January and has no symptoms. She has no other concerns today. [facility] Medical History (Updated 04/12/25 @ 14:07 by Holly Shook CNM) BRENT I (cervical intraepithelial neoplasia I) Tubular adenoma Hx of renal calculi HTN (hypertension) Diabetes mellitus Surgical History History of esophagogastroduodenoscopy (EGD) H/O colonoscopy Hx of dilation and curettage Hx of cystoscopy History of bilateral carpal tunnel release Hx of cholecystectomy Hx of section Family History Father Diabetes Heart problem Hypercholesteremia Mother HTN (hypertension) Diabetes H/O heart surgery Blood clot in vein Social History Household Members: Spouse Housing: Apartment Alcohol intake: former Comment: pt states tripped down the stairs Patient Tobacco Use Status: Never used Tobacco Current occupational status: unemployed Sexual orientation: Straight/Heterosexual Gender identity: Female Review of Systems Const All systems reviewed & are unremarkable except as noted in HPI and below Endo Reports no additional complaints Physical Exam Vital Signs: Last Vital Signs BP 128/70 04/12/25 13:51 Const General: cooperative, healthy appearing and no acute distress Psych Appearance: well kempt Attitude: cooperative Thought process: Normal thought process present Results Reviewed Results Reviewed: [address] [address] Ultrasound Report Signed Patient: Destiny Canales I MR#: [id number] : 1960 Acct:[id number] Age/Sex: 64 / F ADM Date: 03/24/25 Loc: HO.US Attending Dr: Holly Shook CNM Ordering Physician: Holly Shook CNM Date of Service: 03/24/25 Procedure(s): US pelvic and transvaginal Accession Number(s): [id number] cc: Holly Shook CNM; Marbella Rodriguez~ Reason for Exam: R10.2 - Pelvic and perineal pain EXAMINATION: US PELVIS CLINICAL INFORMATION: Pelvic and perineal pain COMPARISON: May 31, 2024 TECHNIQUE: Ultrasound of the pelvis is performed using both transabdominal and transvaginal transducers along with Doppler. Transvaginal imaging is performed due to inadequate visualization transabdominally. FINDINGS: Uterus: The uterus is anteverted and measures 5.4 x 1.7 x 3.9 cm. The double wall endometrial thickness is 2 mm. The uterus is smooth in contour and has normal myometrial echogenicity. No visible fibroid. Adnexa: There is no right ovarian torsion. There is no pelvic ascites or fluid collection. Right ovary measures 1.7 x 1.6 x 1.5 cm. Left ovary not visualized. US/US pelvic and transvaginal IMPRESSION: Nonvisualized left ovary, otherwise unremarkable exam Electronically signed by: Kerwin Hernandez MD 03/24/2025 05:26 PM EDT Dictated By: Kerwin Hernandez MD Signed By: <Electronically signed by Kerwin Hernandez MD in OV> 03/24/25 1726 DD/ 1643 TD/TT: 03/24/25 1649 Director Learning Services: Assessment & Plan Assessment & Plan (1) Encounter to discuss test results: Code(s): Z71.2 - Person consulting for explanation of examination or test findings Plan Discussed: Ultrasound findings- IMPRESSION: Nonvisualized left ovary, otherwise unremarkable exam Reviewed all previous labs-normal, BV was treated. No other concerns today plan follow up at annual exam in January 2026 unless there are changes to call the office for further evaluation. The patient expressed understanding and agreement with the plan of care. All of her questions and concerns were addressed to the best of my ability. This note is constructed using voice recognition software. While every effort has been made to ensure accuracy, occupational therapy technician errors may have been included. Coding Level of Care Code Est Pt Level 3 (99264) Diagnoses Encounter to discuss test results Z71.2
--- OUTSIDE RECORDS SUMMARY | 2025-04-12 16:29 | XMS_ITS | Encounter Summary ---
Author Organization [employer] Address [address] [facility] [address] [place] [address] Care Team Providers Care Slitting Machine Operator Helper Name Role Phone Marbella Rodriguez Primary Care Provider [phone] Reason for Visit * Reason Comments Med Refill Encounter Details Date Type Department Care Team ([facility] Contact Info) Description 12/14/2022 Refill [facility] [address] [place] [address] Marbella Rodriguez FNP [address] [place] [address] Routine health maintenance Social History Tobacco Use [...] Department Care Team (Late Contact Info) Description 04/25/2025 2:00 PM EDT Office Visit [facility] [address] [place] [address] Fernando Walsh DMD [address] [place] [address] documented as of this encounter Visit Diagnoses Diagnosis Routine health maintenance Unspecified examination documented in this encounter Care Teams Slitting Machine Operator Helper Relationship Specialty Start Date End Date Marbella Rodriguez FNP [address] [place] [address] PCP - General Family Medicine 03/05/22 documented as of this encounter
--- OUTSIDE RECORDS SUMMARY | 2025-04-12 16:29 | XMS_ITS | Encounter Summary ---
Author Organization [employer] Address [address] [facility] [address] [place] [address] Care Team Providers Care Financial Reserve Clerk Name Role Phone Marbella Rodriguez Primary Care Provider [phone] Encounter Details Date Type Department Care Team (Late Contact Info) Description 06/06/[address] [facility] [address] [place] [address] Marbella Rodriguez FNP [address] [place] [address] Social History Tobacco Use Types Packs/Day Years [...] Description 04/25/2025 2:00 PM EDT Office Visit [facility] [address] [place] [address] Fernando Walsh, DMD [address] [place] [address] documented as of this encounter Visit Diagnoses Not on filedocumented in this encounter Care Teams Financial Reserve Clerk Relationship Specialty Start Date End Date Marbella Rodriguez FNP [address] [place] [address] PCP - General Family Medicine 03/05/22 documented as of this encounter
--- OUTSIDE RECORDS SUMMARY | 2025-04-12 16:29 | XMS_ITS | Clinical Summary ---
Author Organization [employer] Address [address] [facility] 7[address] [place] [address] Care Team Providers Care Raw Stock Machine Feeder Name Role Phone Marbella Rodriguez GRANITE SETTER Primary Care Provider [phone] Allergies Active Allergy Reactions Criticality Noted Date Comments Acetaminophen Nausea Only 02/18/2012 Oxycodone Nausea Only 02/18/2012 Penicillin G 02/11/2013 Medications metFORMIN (Glucophage) 500 MG tabletIndications: Type 2 diabetes mellitus treated without insulin (HCC) TAKE 1 TABLET BY MOUTH EVERY MORNING 90 tablet 3 05/26/20 24 Active Blood Pressure kitIndications:[facility] hypertension Use to check blood pressure once daily and symptomatic 1 kit 07/28/19 25 Active Multiple Vitamin (Multivitamin) tabletIndications: Routine health maintenance Take 1 tablet by mouth in the morning. 90 tablet 3 07/28/19 25 Active simvastatin (Zocor) 20 MG tabletIndications: Other hyperlipidemia Take 1 tablet (20 mg) by mouth at bedtime. (Cholesterol) 90 tablet 3 08/31/19 25 Active polyethylene glycol, PEG, 3350 (MiraLax) 17 GM/SCOOP powderIndications: Other constipation Mix 17 g (~1 heaping tablespoon) dissolved in 120 to 240 mL (4 to 8 ounces) of beverage, once daily as needed for constipation. 527 g 2 10/21/19 25 Active ammonium lactate (Amlactin) 12 % creamIndications:T ype 2 diabetes mellitus without complication, without long-term current use of insulin (HCC) Apply topically if needed for dry skin. 385 g 2 10/21/19 25 026 Active TRUEplus Lancets 33G miscIndications:Ty pe 2 diabetes mellitus treated without insulin (HCC) USE DIRECTED TO TEST BLOOD SUGAR EVERY DAY AND NEEDED 100 each 12/04/19 Active glucose blood (FREESTYLE LITE) test stripIndications:T ype 2 diabetes mellitus treated without insulin (HCC) USE DIRECTED TO TEST BLOOD SUGAR TWICE DAILY 100 strip 12/04/19 25 Active lisinopril 5 MG tablet TAKE 1 TABLET BY MOUTH EVERY MORNING 90 tablet 1 12/29/19 25 Active pyridoxine (Vitamin B-6) 100 MG tabletIndications: Kidney stone TAKE 1 TABLET BY MOUTH EVERY MORNING 90 tablet 1 02/26/20 25 Active Active Problems Problem Noted Date Diagnosed Date [...] right kidney 09/07/2022 Overview (03/01/2024): -Followed by [facility] [place] [place] [facility], MERLENE Dove -Ultrasound 09/01/23: IMPRESSION: LEFT KIDNEY: Normal RIGHT KIDNEY: Severe hydronephrosis, stable -Mar 2023: [facility] [place] [place] Urology. Renogram revealed left 100% functional and [...] from family and friends Previous referral for VALUER placed, phone numbers provided today for patient/sister [...] Encounters Date Type Department Care Team Description 04/01/2025 9:00 AM EDT Office Visit [facility] [address] [place] [address] Fernando Walsh DMD 03/24/2025 Orders Only [facility] External Provider, [facility] 03/09/2025 Orders Only GENERIC EXTERNAL DATA DEPARTMENT Provider, Generic External Data 03/08/2025 Orders Only [facility] External Provider, [facility] 02/24/2025 Refill [facility] [address] [place] [address] Marbella Rodriguez FNP Kidney stone from Last 3 Months Immunizations Immunization Administration [...] Sign Reading Time Taken Comments Blood Pressure 116/86 04/01/2025 8:29 AM EDT Pulse 66 10/20/2024 3:06 PM EDT [...] Care Team (Late st Contact Info) Description 04/25/2025 2:00 PM EDT Office Visit [facility] [address] [place] [address] Fernando Walsh, DMD [address] [place] [address] Health Maintenance Due Date Last Done Comments CT Colonography 1960 FIT DNA/Cologuard 1960 FIT 1960 FOBT 1960 Sigmoidoscopy 1960 Eye Exam 1970 Pneumococcal Vaccine: 50+ Years (1 of 2 - PCV) 09/17/1979 Dental Prophylaxis 10/22/2017 04/22/2017, 02/28/2014 Zoster Vaccines (2 of 2) 11/01/2019 09/06/2019 Diabetes: Urine Protein Screening 04/27/2022 04/27/2021, 12/28/2019 Lipid Panel 10/10/2023 10/09/2022, 04/07, 12/28/2019 DTaP/Tdap/Td Vaccines (2 - Td or Tdap) 12/04/2023 12/03/2013, 07/26/2005 Diabetes: Foot Exam 11/03/2024 11/04/2023, 09/01/2023, 09/01/2023, Additional history exists COVID-19 Vaccine ( - season) 2025 Influenza Vaccine (#1) 2025 04/05/2014, 2005 Diabetes: Hemoglobin A1C 04/21/2025 025, 03/01/2024, 09/01/2023, Additional history exists Alcohol/Substance Use Screening 05/07/2025 05/07/2024 Colonoscopy 07/27/2025 07/27/2020 Colorectal Cancer Screening 07/27/2025 Dental Oral Exam 09/30/2025 04/01/2025, , 04/25/2014, Additional history exists Depression Screening 10/20/2025 10/20/2024, 10/21/19 Disability Screening 10/20/2025 10/20/2024 SDOH Screening 10/20/2025 10/20/2024 Mammogram 01/03/2026 01/03/2025, 06/07, 06/04/2021, Additional history exists Tobacco Screening 04/01/2026 04/01/2025 Dental X-Ray: Bitewings 04/02/2026 04/01/20, 04/22/2017, 04/25/2014, Additional history exists Cervical Cancer Screening 09/27/2027 HPV/Cotest 09/27/2027 09/26/2022, 07/12/2020 Pap Smear 09/27/2027 09/26/2022, 07/12/2020 Dental X-Ray: Full Mouth 04/02/2028 04/01/2025, 02/2012 RSV Patients and Patients Aged 60 years [...] Procedure Name Priority Date/Time Associated Diagnosis Comments CASE PRESENTATION, DETAILED AND EXTENSIVE TREATMENT PLANNING Routine 04/01/2025 9:00 AM EDT PERIODIC ORAL EVALUATION - ESTABLISHED PATIENT Routine 04/01/2025 9:00 AM EDT INTRAORAL - COMPLETE SERIES OF RADIOGRAPHIC IMAGES Routine 04/01/2025 9:00 AM EDT 31 O AMALGAM FILLING Routine 04/01/2025 12:00 AM EDT US PELVIS TRANSVAGINAL Routine 4:43 PM EDT CREATININE, SERUM Routine 03/09/2025 10: 40 AM EDT UREA NITROGEN (BUN) Routine 03/09/2025 1 0:40 AM EDT US RENAL COMPLETE Routine 03/09/2025 10: 07 AM EDT HEPATITIS C AB W/REFL TO HCV RNA, QN, PCR Routine 01/04/2025 4:05 PM EDT HIV 1/2 ANTIGEN/ANTIBODY, FOURTH GENERATION W/RFL Routine 01/04/2025 4:05 PM EDT BI MAMMOGRAM SCREENING TOMOSYNTHESIS BILATERAL Routine 01/03/2025 3:18 PM EDT POCT GLYCATED HEMOGLOBIN, TOTAL Routine 10/20/2024 3:47 PM EDT Type 2 diabetes mellitus without complication, without long-term current use of insulin ([facility]) AMB REFERRAL TO PODIATRY Routine 11/04/2023 Bunion [...] ADULT Routine 04/22/2017 1 2:00 AM EDT from Last 3 Months or Most Recently Relevant to Health Maintenance Results * US Pelvis Transvaginal (03/24/2025 4:43 PM EDT) Anatomical Region Laterality Modality Pelvis Ultrasound 03/24/2025 4:43 PM EDT Narrative 03/24/2025 5:28 PM EDT [address] [address] Ultrasound Report Signed Patient: Destiny Canales I MR#: [id number] 8 : 1960 Acct:[id number] Age/Sex: 64 / F ADM Date: 03/24/25 Loc: HO.US Attending Dr: Holly Shook CNM Ordering Physician: Holly Shook CNM Date of Service: 03/24/25 Procedure(s): US pelvic and transvaginal Accession Number(s): [id number] cc: Holly Shook CNM; Marbella Rodriguez Reason for Exam: R10.2 - Pelvic and perineal pain EXAMINATION: US PELVIS CLINICAL INFORMATION: Pelvic and perineal pain COMPARISON: May 31, 2024 TECHNIQUE: Ultrasound of the pelvis is performed using both transabdominal and transvaginal transducers along with Doppler. Transvaginal imaging is performed due to inadequate visualization transabdominally. FINDINGS: Uterus: The uterus is anteverted and measures 5.4 x 1.7 x 3.9 cm. The double wall endometrial thickness is 2 mm. The uterus is smooth in contour and has normal myometrial echogenicity. No visible fibroid. Adnexa: There is no right ovarian torsion. There is no pelvic ascites or fluid collection. Right ovary measures 1.7 x 1.6 x 1.5 cm. Left ovary not visualized. US/US pelvic and transvaginal IMPRESSION: Nonvisualized left ovary, otherwise unremarkable exam Electronically signed by: Kerwin Hernandez MD 03/24/2025 05:26 PM EDT Dictated By: Kerwin Hernandez MD Signed By: <Electronically signed by Kerwin Hernandez MD in OV> 03/24/25 1726 DD/ 1643 TD/TT: 03/24/25 1649 Public Records Officer: Procedure Note Donotuseinterpreter, Image - 03/24/2025 [place] [address] Ultrasound Report Signed Patient: Destiny Canales IMR#: [id number] 8 : 1960cct:[id number] Age/Sex: 64 / FADM Date: 03/24/25 Loc: HO.US Attending Dr: Holly Shook CNM Ordering Physician: Holly Shook CNM Date of Service: 03/24/25 Procedure(s): US pelvic and transvaginal Accession Number(s): [id number] cc: Holly Shook CNM; Marbella Rodriguze Reason for Exam: R10.2 - Pelvic and perineal pain EXAMINATION: US PELVIS CLINICAL INFORMATION: Pelvic and perineal pain COMPARISON: May 31, 2024 TECHNIQUE: Ultrasound of the pelvis is performed using both transabdominal and transvaginal transducers along with Doppler. Transvaginal imaging is performed due to inadequate visualization transabdominally. FINDINGS: Uterus: The uterus is anteverted and measures 5.4 x 1.7 x 3.9 cm. The double wall endometrial thickness is 2 mm. The uterus is smooth in contour and has normal myometrial echogenicity. No visible fibroid. Adnexa: There is no right ovarian torsion. There is no pelvic ascites or fluid collection. Right ovary measures 1.7 x 1.6 x 1.5 cm. Left ovary not visualized. US/US pelvic and transvaginal IMPRESSION: Nonvisualized left ovary, otherwise unremarkable exam Electronically signed by: Kerwin Hernandez MD 03/24/2025 05:26 PM EDT Dictated By: Kerwin Hernandez MD Signed By: <Electronically signed by Kerwin Hernandez MD in OV> 03/24/25 1726 DD/ 42 TD/TT: 03/24/251648 Public Records Officer: us [facility] External Provider IMG US PROCEDURES Final Result * Creatinine, Serum (03/09/2025 10:40 AM EDT) Creatinine, Serum 1.18 0.5 - 1.4 mg/dL [facility] Estimated Glomerular Filt Rate 46 [facility] Comment:Chronic Kidney Disea se: Estimated GFR < 60 mL/min/1.02f5Xswyge Kidney Disease: Estimated GFR < 15 mL/min/1.73m2 03/09/2025 10:4 0 AM EDT 03/09/2025 10:42 AM EDT Generic External Data Provider LAB BLOOD ORDERAB LES Final Result Performing Organization Address [facility]/ZIP Co de Phone Number [facility] [address] [place] [phone] * (ABNORMAL) BUN (Blood Urea Nitrogen) (03/09/2025 10:40 AM EDT) Urea Nitrogen (BUN) 17(H) 9 - 16 mg/dL [facility] 03/09/2025 10:4 0 AM EDT 03/09/2025 10:42 AM EDT Generic External Data Provider LAB BLOOD ORDERAB LES Final Result Performing Organization Address [facility] Co de Phone Number [facility] [address] [place] [phone] * US Renal Complete (03/09/2025 10:07 AM EDT) Anatomical Region Laterality Modality Kidney Ultrasound 03/09/2025 10:0 7 AM EDT Narrative 03/09/2025 10:08 AM EDT [address] [address] Ultrasound Report Signed Patient: Destiny Canales I MR#: [id number] 8 : 1960 Acct:[id number] Age/Sex: 64 / F ADM Date: 03/08/25 Loc: . Attending Dr: Nayla Dove [facility] Ordering Physician: Nayla Dove Date of Service: 03/08/25 Procedure(s): US renal BI Accession Number(s): [id number] cc: Nayla Dove; Marbella Rodriguez Reason for Exam: N13.30 - Unspecified hydronephrosis CLINICAL HISTORY: N13.30 - Unspecified hydronephrosis US of kidneys Comparison: US/SR - US KIDNEY BILATERAL - 09/02/24 15:58 EST Findings: Right kidney is not well seen due to limited acoustic window, enlarged due to severe chronic hydronephrosis, nearly indiscernible renal parenchyma, no obvious calculus or mass is seen. Several call center support representative static sonographic images of the left [...] 03/09/25 1008 DD/ 1007 TD/TT: 03/09/25 1007 Public Records Officer: Procedure Note Donotuseinterpreter, Image - 03/09/2025 [place] [address] Ultrasound Report Signed Patient: Destiny Canales [facility]#: [id number] 8 : 1960cct:[id number] Age/Sex: 64 / FADM Date: 03/08/25 Loc: HO.US Attending Dr: Nayla BROWN Ordering Physician: Nayla Dove Date of Service: 03/08/25 Procedure(s): US renal BI Accession Number(s): [id number] cc: Nayla Dove; Marbella Rodriguez Reason for Exam: N13.30 - Unspecified hydronephrosis CLINICAL HISTORY: N13.30 - Unspecified hydronephrosis US of kidneys Comparison: US/SR - US KIDNEY BILATERAL - 09/02/24 15:58 EST Findings: Right kidney is not well seen due to limited acoustic window, enlarged due to severe chronic hydronephrosis, nearly indiscernible renal parenchyma, no obvious calculus or mass is seen. Several call center support representative static sonographic images of the left [...] 03/09/25 1008 DD/ 1007 TD/TT: 03/09/25 1007 Public Records Officer: us [facility] External Provider IMG US PROCEDURES Final Result * Hepatitis C Antibody with Reflex to HCV, RNA, Quantitative, Real-Time PCR (01/04/2025 4:05 PM EDT) Hepatitis C Antibody Nonreactive Nonreactive [facility] Comment:Antibodies to HCV no t detected; does not exclude early acuteHCV infection. 01/04/2025 4:05 PM EDT 01/04/2025 4:06 PM EDT Generic External Data Provider LAB BLOOD ORDERAB LES Final Result [facility] [address] [place] [address] [phone] * HIV-1/2 Antigen and Antibodies, Fourth Generation, with Reflexes (01/04/2025 4:05 PM EDT) HIV AB/AG Nonreactive Nonreactive [facility] Comment:HIV-1 p24 Ag and/or HIV-1/HIV-2 Ab not detected.A test result that is nonreactive does not exclude thepossibility of exposure to or infection with HIV-1 and/orHIV-2. Nonreactive results in this assay for individualswith prior exposure to HIV-1 and/or HIV-2 may be due toantigen and antibody levels that are below the limit ofdetection of this assay.[facility] HIV Ag/Ab Combo assay result andsupplemental assay results should be interpreted inconjunction with the patient's clinical presentation,history and other laboratory results. If the results areinconsistent with clinical evidence, additional testing issuggested to confirm the result. 01/04/2025 4:05 PM EDT 01/04/2025 4:06 PM EDT us Generic External Data Provider LAB BLOOD ORDERAB LES Final Result Performing Organization Address City/State/[facility] Co de Phone Number [facility] [address] [place] [phone] * BI Mammogram Screening Tomosynthesis Bilateral (01/03/2025 3:18 PM EDT) Anatomical Region Laterality Modality Breast Bilateral Mammography 01/03/2025 3:18 PM EDT Narrative 01/16/2025 8:33 PM EDT [address] [place] [address] Mammography Report Signed Patient: Destiny Canales I MR#: [id number] 8 : 1960 Acct:[id number] Age/Sex: 64 / F ADM Date: 01/03/25 Loc: HO.MAMMO Attending Dr: Marbella Rodriguez GRANITE SETTER Ordering Physician: Marbella Rodriguez Results: 2Benig n Findings Date of Service: 01/03/25 Follow Up: 1 Year From [facility] Mammogram Procedure(s): MM tomosynthesis screening BI Accession Number(s): [id number] cc: Marbella Rodriguez GRANITE SETTER EXAMINATION: MM SCREENING DIGITAL BREAST TOMOSYNTHESIS, BILATERAL [...] Krystyna Lucas DO in OV> 01/16/252029 DD/ 151 TD/TT: 01/03/25 1530 Public Records Officer: Procedure Note Donotuseinterpreter, Image - 01/16/2025 [facility] [address] [place] [address] Mammography Report Signed Patient: Destiny Canales [facility]#: [id number] 8 : 1960cct:[id number] Age/Sex: 64 / FADM Date: 01/03/25 Loc: HO.MAMMO Attending Dr: Marbella Rodriguez GRANITE SETTER Ordering Physician: Marbella Rodriguez FNPResults: 2Benig n Findings Date of Service: 01/03/25Follow Up: 1 Year From Orig inal Mammogram Procedure(s): MM tomosynthesis screening BI Accession Number(s): [id number] cc: Marbella Rodriguez EXAMINATION: MM SCREENING DIGITAL [...] OV> 01/16/252029 DD/ 1518 TD/TT: 01/03/25 1530 Public Records Officer: Marbella Rodriguez [facility] IMG BI PROCEDURES Edited Resul t - Final * POCT HGB A1C (10/20/2024 3:47 PM EDT) [facility] Hemoglobin A1C 6.0 4.0 - 6.0 % QC Media Lot # [id number] Lot# Expiration Date Blood 10/20/2024 3:47 PM EDT Marbella Rodriguez [facility] POINT OF CARE TEST ENTER/EDIT ORDERABLES Final Result * Referral to Podiatry (11/04/2023) Result [facility] Marbella Rodriguez [facility] OUTPATIENT REFERRAL ORDERABLES Final Result * (ABNORMAL) Lipid Panel, Standard (10/09/2022 8:52 AM EDT) Pathologist [facility] Cholesterol, Total 172 <200 mg/dL [facility] HDL Cholesterol 58 > OR = 50 mg/dL [facility] Triglycerides 59 <150 mg/dL [facility] LDL Cholesterol 100(H) mg/dL (calc) [facility] Comment: Reference range: <100 Desirable range <100 mg/dL for primary prevention; <70 mg/dL for patients with CHD or diabetic patients with > or = 2 CHD risk factors. LDL-C is now calculated using the Eliseo calculation, which is a validated novel method providing better accuracy than the Friedewald equation in the estimation of LDL-C. Elmer ESQUIVEL et al. BETTINA. 2013;310(19): 6280-9409 (http://education.[employer]/faq/VJW031) Chol/HDLC Ratio 3.0 <5.0 (calc) [facility] Non-HDL Cholesterol 114 <130 mg/dL (calc) [facility] Comment: For patients with diabetes plus 1 major ASCVD risk factor, treating to a non-HDL-C goal of <100 mg/dL (LDL-C of <70 mg/dL) is considered a therapeutic option. Blood Venous blood specimen / Unknown 10/09/2022 8:52 AM EDT 10/09/2022 8:53 AM EDT Narrative [facility] - 10/11/2022 8:59 PM EDT FASTING:YES PATIENT UNABLE TO VOID; ADVISED TO RETURN FOR COLLECTION. FASTING: YES us Marbella Rodriguez [facility] LAB BLOOD ORDERABLES Final Res ult [facility] [address], [place] [address] [facility] [address] [place] [address] * HPV mRNA E6/E7 w/Reflex to HPV Genotypes 16, 18/45 (09/26/2022 3:05 PM EDT) HPV nRNA E6/E7 Not Detected Not Detected [facility] Comment:Methodology: Transcr iption-Mediated AmplificationThis assay detects E6/E7 viral messenger RNA (mRNA) from 14high-risk HPV types (16,18,31,33,35,39,45,51,52,56,58,59,66,68).Cervical sources are required for HPV testing.If a vaginal source from a patient who has had atotal hysterectomy with removal of cervix wassubmitted, please contact the testing laboratoryfor alternative testing options.For additional information, please refer tohttp://education.[employer]/faq/RSX691n9(This link if provided for information/educational purposes only.)THIS TEST WAS PERFORMED AT:[facility] [place] [phone] KLEIN MD HPV mRNA E6/E7 TNP [facility] HPV 16 RNA TNP [facility] HPV 18/45 RNA [facility] 09/26/2022 3:05 PM EDT 09/27/2022 9:45 AM EDT [facility] External Provider LAB CYT OLOG ORDERABLES Final Result [facility] [address] [place] [address] [phone] * Pap Smear (09/26/2022 3:05 PM EDT) 09/26/2022 3:05 PM EDT 09/27/2022 9:45 AM EDT Narrative [facility] - 10/07/2022 12:02 PM EDT ----- ------- Name: CanalesDestiny velazquez I Age/Sex: 62/F : 1960 Unit#: [id number] Attend Dr: Holly Shook Delroy Re09/26/22 Status: DEP REF Location: LNP Disch: ----- ------- SPEC : [id number] RECD: 09/27/22-944 STATUS: RADHA SANTOS NUM: [id number] DAISHA: 09/26/22-15[address] [facility] [address]: Holly Shook [facility] ENTERED: 09/27/22-100 SP TYPE: Pap Smr OTHR DR: Marbella Rodriguez ORDERED: Pap Smear Interpretation Satisfactory for evaluation. Negative for intraepithelial lesion or malignancy. HPV mRNA E6/E7: NOT DETECTED This assay detects E6/E7 viral messenger RNA (mRNA) from 14 high-risk HPV types (16, 18, 31, 33, 35, 39, 45, 51, 52, 56, 58, 59, 66, 68) HPV testing performed by [facility], [place], [place]. See reference laboratory portion of the EMR for entire report. Clinical Information LMP: Menopausal Previous PAP test: 2021, WNL Material Received ThinPrep-Cervical Copies To: Holly Shook[address] [place] [address] Marbella Rodriguez [address] [place] [address] ----- ------- Signed (signature on file) Yahaira Lopes Leoncio 10/07/22 1202 ----- ------- END OF REPORT [facility] External Provider LAB CYT OLOGY ORDERABLES Final Result Performing Organization Address [facility] Co de Phone Number [facility] [address] [place] [address] [phone] * ALBUMIN, RANDOM URINE W/CREATININE (04/27/2021 10:04 AM EDT) Microalbumin Urine 2.3 See Note: mg/dL [facility] Comment: Reference Range: Reference Range [...] Creatinine, Urine 102 20 - 275 mg/dL [facility] 04/27/2021 10:0 4 AM EDT Keli Emery NP LAB URINE ORDERABLES Final Res ult Performing Organization Address City/[facility] Co de Phone Number [facility] [address] * (ABNORMAL) Colonoscopy (07/27/2020) Colonoscopy Abnormal(A ) Normal Narrative Marbella Rodriguez FNP - 07/27/2020 [facility] [place] [place] - Dr. Mae. Plan: 5 year follow up Historical Provider MD HEALTH MAINTENANCE Final Result from Last 3 Months or Most Recently Relevant to Health Maintenance Insurance [place] [facility] [employer] STAND ADULT Care Teams Raw Stock Machine Feeder Relationship Specialty Start Date End Date Marbella Rodriguez FNP [address] [place] [address] PCP - General Family Medicine 03/05/22
--- OUTSIDE RECORDS SUMMARY | 2025-04-12 16:29 | XMS_ITS | Encounter Summary ---
Author Organization [employer] Address [address] [facility] [address] [place] [address] Care Team Providers Care Reimbursement Counselor Name Role Phone Marbella Rodriguez Primary Care Provider [phone] Reason for Visit * Reason Comments Med Refill Encounter Details Date Type Department Care Team ([facility] st Contact Info) Description 06/10/2023 Refill [facility] [address] [place] [address] Marbella Rodriguez FNP [address] [place] [address] Routine health maintenance Social History Tobacco Use [...] Description 04/25/2025 2:00 PM EDT Office Visit [facility] [address] [place] [address] Fernando Walsh, DMD [address] [place] [address] documented as of this encounter Visit Diagnoses Diagnosis Routine health maintenance Unspecified examination documented in this encounter Additional Health Concerns Assessment Noted Time PHQ-9 Depression Total Score: 6 05/23/20 23 4:38 PM EST documented as of this encounter Care Teams Reimbursement Counselor Relationship Specialty Start Date End Date Marbella Rodriguez FNP [address] [place] [address] PCP - General Family Medicine 03/05/22 documented as of this encounter
--- OUTSIDE RECORDS SUMMARY | 2025-04-12 16:29 | XMS_ITS | Encounter Summary ---
Author Organization [employer] Address [address] [facility] [address] [place] [address] Care Team Providers Care Hat Cleaner Name Role Phone Marbella Rodriguez Primary Care Provider [phone] Encounter Details Date Type Department Care Team ([facility] Contact Info) Description 07/10/2022 Orders Only [facility] [address] [place], [place] [phone] Colleen Conteh LPN Social History Tobacco Use [...] Description 04/25/2025 2:00 PM EDT Office Visit [facility] [address] [place] [address] Fernando Walsh DMD [address] [place] [address] documented as of this encounter Visit Diagnoses Not on filedocumented in this encounter Care Teams Hat Cleaner Relationship Specialty Start Date End Date Marbella Rodriguez FNP [address] [place] [address] PCP - General Family Medicine 03/05/22 documented as of this encounter
--- OUTSIDE RECORDS SUMMARY | 2025-04-12 16:29 | XMS_ITS | Encounter Summary ---
Author Organization [employer] Address [address] [facility] [address] [place] [address] Care Team Providers Care Park Maintenance Technician Name Role Phone Marbella Rodriguez Primary Care Provider [phone] Reason for Visit * Reason Onset Date Comments Results 08/05/2023 Encounter Details Date Type Department Care Team ([facility] st Contact Info) Description 08/05/2023 Telephone [facility] MEDICINE [address] [place] [address] Marbella Rodriguez FNP [address] [place] [address] Results Social History Tobacco Use Types Packs/Day [...] Description 04/25/2025 2:00 PM EDT Office Visit [facility] ADULT DENTAL [address] [place] [address] Fernando Walsh DMD [address] [place] [address] documented as of this encounter Visit Diagnoses Not on filedocumented in this encounter Additional Health Concerns Assessment Noted Time PHQ-9 Depression Total Score: 6 05/23/20 23 4:38 PM EST documented as of this encounter Care Teams Park Maintenance Technician Relationship Specialty Start Date End Date Marbella Rodriguez FNP [address] [place] [address] PCP - General Family Medicine 03/05/22 documented as of this encounter
== END 2025-04-12 14:36 | disposition home or self-care (01) ==
LOC: HO.HWS 13:26
PROVIDERS: PCP Registered Nurse; Visit Provider Advanced Practice Midwife
DX: Z71.2 Person consulting for explanation of examination or test findings (principal)
CPT/HCPCS: 99213

== ENCOUNTER → 2025-04-12 13:26 | Outpatient (BNVA) | payer MEDICAID, SELFPAY | PROVIDERS: PCP Registered Nurse; Visit Provider Advanced Practice Midwife | DX: Z71.2 Person consulting for explanation of examination or test findings (principal); R10.20 Pelvic and perineal pain unspecified side | CPT/HCPCS: 99212 ==

== ENCOUNTER 2025-06-23 10:03 | Outpatient (AMB) | payer MEDICAID, SELFPAY ==
[2025-06-23 10:23] VITALS: BP 132/72; PULSE 72; BMI 23.2
--- NOTE | 2025-06-23 10:23 | MHC.OFFVIS ---
Vital Signs 06/23/25 10:23 Height 5 ft 1 in Weight 123 lb BMI 23.2 BP 132/72 Blood Pressure Location Rt brachial Position Sitting Pulse 72 Intake Visit Reasons: epidermal cyst back Intake Note: Patient referred by Marbella Rodriguez TOOL DISPATCHER for evaluation and treatment of cyst on Rt mid back. Patient c/o: itchy, tender at times. Denies oozing, bleeding. Senior Oracle Database Administrator Required: Yes Senior Oracle Database Administrator Services: Senior Oracle Database Administrator Offered & Declined Accompanied by: sister Nikki Canales Allergies acetaminophen (Percocet) Allergy (Severe, Verified 06/23/25 10:31) edema morphine (MORPHINE) Allergy (Intermediate, Verified 06/23/25 10:31) HIVES/REDNESS TO FACE oxycodone (From PERCOCET) Allergy (Intermediate, Verified 06/23/25 10:31) RASH Penicillins (PENICILLINS) Allergy (Intermediate, Verified 06/23/25 10:31) RASH WITH HIVES Medication List - Last Reconciled 06/23/25 by Howard Ram MD bisacodyl (Dulcolax (bisacodyl)) 10 mg (2 x 5 mg) PO ONCE 1 day blood sugar diagnostic (FreeStyle Lite Strips) As directed lancets (TRUEplus Lancets) As directed lisinopril 5 mg PO DAILY metformin 500 mg PO BID metronidazole 0.75%(37.5mg/5gram) 1 appful vaginal BEDTIME 5 days multivitamin 1 tab PO QAM pyridoxine (vitamin B6) 100 mg PO DAILY 90 days simvastatin 20 mg PO QPM HPI Comments Details: Patient reports longstanding history of a sebaceous cyst involving the middle of her back. She goes on to say that it itches and she finds it bothersome and she desires removal. [facility] Medical History BRENT I (cervical intraepithelial neoplasia I) Tubular adenoma Hx of renal calculi HTN (hypertension) Diabetes mellitus Surgical History History of esophagogastroduodenoscopy (EGD) H/O colonoscopy Hx of dilation and curettage Hx of cystoscopy History of bilateral carpal tunnel release Hx of cholecystectomy Hx of section Family History Father Diabetes Heart problem Hypercholesteremia Mother HTN (hypertension) Diabetes H/O heart surgery Blood clot in vein Social History Household Members: Spouse Housing: Apartment Alcohol intake: former Comment: pt states tripped down the stairs Patient Tobacco Use Status: Never used Tobacco Current occupational status: unemployed Sexual orientation: Straight/Heterosexual Gender identity: Female Review of Systems Const All systems reviewed & are unremarkable except as noted in HPI and below Physical Exam Vital Signs: Last Vital Signs Pulse 72 06/23/25 10:23 BP 132/72 06/23/25 10:23 BMI result Body Mass Index 23.2 Const General: cooperative, healthy appearing and comfortable Orientation/consciousness: oriented to person, oriented to place and oriented to time HEENT Head: Yes normal to inspection, Yes normocephalic and Yes atraumatic Ears: hearing grossly normal bilaterally General nose exam: Normal external nose present Face and sinus: Yes normal facial exam Eyes Pupils: Equal, round and reactive pupils present EOM: EOMs intact bilaterally Neck Neck: Yes normal visual inspection Chest Chest palpation & inspection: normal inspection of the chest Resp Effort & Inspection: normal respiratory effort and able to speak in complete sentences Cardio Rate: regular rate Rhythm: regular rhythm GI Inspection: Yes normal to inspection Back/Spine/Pelvis Other: In the center the patient's back she exhibits approximate 1-2 cm cystic structure consistent with an epidermoid inclusion cyst. There was no erythema edema or discharge. Neuro General: oriented to person, oriented to place and oriented to time Cranial nerves: Yes CN's II-XII intact bilaterally and Yes Equal, round and reactive pupils present Assessment & Plan Assessment & Plan (1) Epidermal inclusion cyst: Code(s): L72.0 - Epidermal cyst Category: Medical Plan: I reviewed with the patient the nature of excisional biopsy. Also reviewed with her in detail the risks that are involved. These include but are not limited to the risk of bleeding the risks infection of the risk of recurrence risk of scarring and the risk of chronic pain. She indicated that she understood. She told me that she carefully considered her options. She indicated that she understood and accepted the risks of surgery and still wished to proceed with excisional biopsy. Coding Level of Care Code New Pt Level 3 (38964) Diagnoses Epidermal inclusion cyst L72.0 Time Spent (min) 30 Comment Record review patient visit and coordination of care time
--- OUTSIDE RECORDS SUMMARY | 2025-06-23 12:23 | XMS_ITS | Encounter Summary ---
Author Organization [employer] Address [address] [facility] [address] [place] [address] Care Team Providers Care Hogshead Dumper Name Role Phone Marbella Rodriguez CORPORATE LAWYER Primary Care Provider [phone] Reason for Visit * Reason Onset Date Comments Dr. Jillian ellis impression no good 05/18/2025 Encounter Details Date Type Department Care Team ([facility] Contact Info) Description 05/18/[address] [facility] ADULT DENTAL [address] [place] [address] Fernando Walsh, DMD [address] [place] [address] Dr. Jillian ellis impression no good Social History Tobacco Use Types Packs/Day Years [...] encounter Miscellaneous Notes * Telephone Encounter - Li Post - 05/18/2025 9:26 AM EST Message for Dr. Jillian Asencio from [facility] called in stating that request for occlusal was sent to lab however the lower impression is no good. They would need either a new impression or lab can use custom tray for lower. Please reach out to Elif at [phone] at lab. That is her personal line. documented in this encounter Plan of Treatment Upcoming Encounters Date Type Department Care Team (Late st Contact Info) Description 06/29/2025 1:30 PM EST Office Visit [facility] ADULT DENTAL [address] [place] [address] Fernando Walsh, DMD [address] [place] [address] 07/13/2025 9:45 AM EST Office Visit [facility] MEDICINE [address] [place] [address] Marbella Rodriguez FNP [address] [place] [address] documented as of this encounter Visit Diagnoses Not on filedocumented in this encounter Additional Health Concerns Assessment Noted Time PHQ-9 Depression Total Score: 8 10/21/19 25 3:18 PM EDT documented as of this encounter Care Teams Hogshead Dumper Relationship Specialty Start Date End Date Marbella Rodriguez FNP [address] [place] [address] PCP - General Family Medicine 03/05/22 documented as of this encounter
--- OUTSIDE RECORDS SUMMARY | 2025-06-23 12:23 | XMS_ITS | Encounter Summary ---
Author Organization [employer] Address [address] [facility] [address] [place] [address] Care Team Providers Care Car Examiner Name Role Phone Marbella Rodriguez Primary Care Provider [phone] Encounter Details Date Type Department Care Team ([facility] Contact Info) Description 07/10/2022 Orders Only [facility] MED & PEDS [address] [place], [place] [phone] Colleen Conteh LPN Social History Tobacco Use [...] Department Care Team (Late Contact Info) Description 06/29/2025 1:30 PM EST Office Visit [facility] ADULT DENTAL [address] [place] [address] Fernando Walsh DMD [address] [place] [address] 07/13/2025 9:45 AM EST Office Visit [facility] MEDICINE [address] [place] [address] Marbella Rodriguez FNP [address] [place] [address] documented as of this encounter Visit Diagnoses Not on filedocumented in this encounter Care Teams Car Examiner Relationship Specialty Start Date End Date Marbella Rodriguez FNP [address] [place] [address] PCP - General Family Medicine 03/05/22 documented as of this encounter
--- OUTSIDE RECORDS SUMMARY | 2025-06-23 12:23 | XMS_ITS | Encounter Summary ---
Author Organization [employer] Address [address] [place] [address] [address] [place] [address] Care Team Providers Care Medical Claims Examiner Name Role Phone Marbella Rodriguez Primary Care Provider [phone] Encounter Details Date Type Department Care Team (Late Contact Info) Description 06/06/2022 Orders Only [facility] MEDICINE [address] [place] [id number] Marbella Rodriguez FNP [address] [place] [address] Social History Tobacco Use Types Packs/Day Years [...] Description 06/29/2025 1:30 PM EST Office Visit [facility] ADULT DENTAL [address] [place] [address] Fernando Walsh, DMD [address] [place] [address] 07/13/2025 9:45 AM EST Office Visit [facility] MEDICINE [address] [place] [address] Marbella Rodriguez FNP [address] [place] [address] documented as of this encounter Visit Diagnoses Not on filedocumented in this encounter Care Teams Medical Claims Examiner Relationship Specialty Start Date End Date Marbella Rodriguez FNP [address] [place] [address] PCP - General Family Medicine 03/05/22 documented as of this encounter
--- OUTSIDE RECORDS SUMMARY | 2025-06-23 12:23 | XMS_ITS | Clinical Summary ---
Author Organization [employer] Address [address] [facility] 7[address] [place] [address] Care Team Providers Care Green House Manager Name Role Phone Marbella Rodriguez PATIENT REGISTRATION SPECIALIST Primary Care Provider Allergies Active Allergy Reactions Criticality Noted Date Comments Acetaminophen Nausea Only 02/18/2012 Oxycodone Nausea Only 02/18/2012 Penicillin G 02/11/2013 Medications Blood Pressure kitIndications:Mikayla radha hypertension Use to check blood pressure once daily and symptomatic 1 kit 07/28/19 25 Active Multiple Vitamin (Multivitamin) tabletIndications: Routine health maintenance Take 1 tablet by mouth in the morning. 90 tablet 3 06/21/2025 2:58 PM EST 07/28/19 25 Active simvastatin (Zocor) 20 MG [...] EVERY DAY AND NEEDED 100 each 11 12/04/19 25 Active glucose blood (FREESTYLE LITE) test stripIndications:T ype 2 diabetes mellitus treated without insulin (HCC) USE DIRECTED TO TEST BLOOD SUGAR TWICE DAILY 100 strip 11 06/21/2025 2:58 PM EST 12/04/19 25 Active lisinopril 5 MG tablet TAKE 1 TABLET BY MOUTH EVERY MORNING 90 tablet 1 12/29/19 25 Active pyridoxine (Vitamin B-6) 100 MG tabletIndications: Kidney stone TAKE 1 TABLET BY MOUTH EVERY MORNING 90 tablet 1 06/21/2025 2:58 PM EST 02/26/20 25 Active metFORMIN (Glucophage) 500 MG tabletIndications: Type 2 diabetes mellitus treated without insulin (HCC) TAKE 1 TABLET BY MOUTH EVERY MORNING 90 tablet 3 06/21/2025 2:58 PM EST 05/24/20 25 Active Diclofenac Sodium 1 % gel Apply thin layer by topical route (quantity as directed on package insert) to affected area of pain 3 times daily as needed. 50 g 3 06/08/2025 1:12 PM EST 06/08/20 25 Active Active Problems Problem Noted Date Diagnosed Date Other constipation 10/20/2024 Assessment & Plan (10/20/2024 4:52 PM EDT): Encouraged increase fiber intake, good hydration, daily movement Start MiraLAX daily as needed Pelvic pain 05/12/2024 Assessment & Plan (06/10/2025 3:24 PM EST): - Following with [facility] - EVENS Shook. - Pelvic US May 2024 without any identified concerns or abnormalities - Repeat Pelvic US Mar 2025 with non-visualized left ovary, otherwise unremarkable - Resolved at this time. Follow up PRN Assessment & Plan (07/28/2024 5:07 PM EST): [...] 10/09/2022 Atrophy of right kidney 09/07/2022 Overview (06/10/2025): -Followed by [facility], MERLENE Dove -Ultrasound 03/08/25: IMPRESSION: LEFT KIDNEY: Normal RIGHT KIDNEY: Severe hydronephrosis, stable -Mar 2023: [facility]. Renogram revealed left 100% functional and right at 0% Assessment & Plan (06/10/2025 3:25 PM EST): - Plan to follow up in 1 year Assessment & Plan (10/20/2024 2:54 PM EDT): [...] of symptoms Routine health maintenance 09/05/2022 Overview (06/10/2025): STI: negative October 2022 Contraception: n/a Pap/Results: NILM HPV Neg 09/26/22 (Holly Shook CNM). Hx of BRENT 1 Smoking status: non-smoker Mammo: BIRADS 2 on 12/07/24 C-scope: 07/2020, repeat 5 years (07/2025) HTN [...] grade 1 07/13 Diabetes mellitus 08/31/2013 Overview (06/10/2025): Lab Results Component Value Date HGBA1C 6.5 (A) 06/08/2025 -Well controlled -Simvastatin 20mg nightly Assessment & Plan (06/10/2025 3:34 PM EST): - Plan to HOLD metformin 500mg daily x 1 month to see if culprit of GI symptoms - Continue lifestyle interventions Assessment & Plan (10/20/2024 4:49 [...] from family and friends Previous referral for [facility] placed, phone numbers provided today for patient/sister [...] Encounters Date Type Department Care Team Description 06/13/2025 9:00 AM EST Office Visit [facility] [place] [address] Pranay, Cuca, OD Meibomian gland dysfunction (MGD) of upper and lower lids of both eyes (Primary Dx); 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 06/13/2025 Travel 06/10/2025 Travel 06/08/2025 11:15 AM EST Office Visit [facility] [address] [place] [address] Marbella Rodriguez FNP Type 2 diabetes mellitus without complication, without long-term current use of insulin (HCC) (Primary Dx); Routine health maintenance; Pelvic pain; Atrophy of right kidney; Epidermal inclusion cyst; Primary hypertension; Pain of right upper extremity 06/08/2025 Travel 06/07/2025 Telephone [facility] [address] [place] [phone] Marbella Rodriguez FNP chartprep 05/26/2025 Patient Outreach [address] [address] Marbella Rodriguez FNP Pre-visit Planning ([facility] screening was completed on 10/20/2024) 05/24/2025 Refill [facility] [address] [place], [place] [phone] Marbella Rodriguez FNP Type 2 diabetes mellitus treated without insulin (HCC) 05/18/2025 Telephone [facility] AD[facility] DENT[facility] [address] [place] [address] Fernando Walsh, KARINA Walsh lower impression no good 05/17/2025 9:20 AM EST Office Visit [facility] [address] [place] [address] Pranay, Cuca, OD Diabetes type 2, no ocular involvement (HCC) (Primary Dx) 05/17/2025 Travel 05/16/2025 2:30 PM EST Office Visit [facility] [address] [place] [address] Fernando Walsh, DMD 04/25/2025 2:00 PM EDT Office Visit [facility] [address] [place] [address] Fernando Walsh, DMD 04/18/2025 Telephone [facility] [address] [place] [address] Marbella Rodriguez FNP 04/01/2025 9:00 AM EDT Office Visit [facility] [address] [place] [address] Fernando Walsh, DMD 03/24/2025 Orders Only [facility] External Provider, [facility] from Last 3 Months Immunizations Immunization Administration [...] Sign Reading Time Taken Comments Blood Pressure 128/78 06/08/2025 3:32 PM EST Pulse 68 06/08/2025 10:02 AM EST Temperature 34.8 C (94.7 F) 06/08/2025 10:02 AM EST Respiratory Rate 19 06/08/2025 10:0 2 AM EST Oxygen Saturation 99% 06/08/2025 10: 02 AM EST Inhaled Oxygen Concentration - - Weight 55.7 kg (122 lb 12.8 oz) 025 10:02 AM EST Height 157.5 cm (5' 2 ) 06/08/2025 10:0 2 AM EST Body Mass Index 22.46 06/08/2025 10:02 AM EST Plan of Treatment Upcoming Encounters Date Type Department Care Team (Late st Contact Info) Description 06/29/2025 1:30 PM EST Office Visit [facility] [address] [place] [address] Fernando Walsh, DMD [address] [place] [address] 07/13/2025 9:45 AM EST Office Visit [facility] [address] [place] [address] Marbella Rodriguez, PATIENT REGISTRATION SPECIALIST [address] [place] [address] Health Maintenance Due Date Last Done Comments CT Colonography 1960 FIT DNA/Cologuard 1960 FIT 1960 FOBT 1960 Sigmoidoscopy 1960 Eye Exam 1970 Pneumococcal Vaccine: 50+ Years (1 of 2 - PCV) 09/17/1979 Dental Prophylaxis 10/22/2017 04/22/2017, 02/28/2014 Zoster Vaccines (2 of 2) 11/01/2019 09/06/2019 Diabetes: Urine Protein Screening 04/27/2022 04/27/2021, 04/27/2021, 12/28/2019 Lipid Panel 10/10/2023 10/09/2022, 04/07, 12/28/2019 DTaP/Tdap/Td Vaccines (2 - Td or Tdap) 12/04/2023 12/03/2013, 07/26/2005 Diabetes: Foot Exam 11/03/2024 11/04/2023, 09/01/2023, 09/01/2023, Additional history exists COVID-19 Vaccine ( season) 2025 Influenza Vaccine (#1) 2025 04/05/2014, 2005 Colonoscopy 07/27/2025 07/27/2020 Colorectal Cancer Screening 07/27/2025 Dental Oral Exam 09/30/2025 04/01/2025, , 04/25/2014, Additional history exists Depression Screening 10/20/2025 10/20/2024, 10/21/19 Disability Screening 10/20/2025 10/20/2024 SDOH Screening 10/20/2025 10/20/2024 Diabetes: Hemoglobin A1C 12/07/2025 025, 10/20/2024, 03/01/2024, Additional history exists Mammogram 01/03/2026 01/03/2025, 06/07, 07/12/2022, Additional history exists Dental X-Ray: Bitewings 04/02/2026 04/01/20, 04/22/2017, 04/25/2014, Additional history exists Alcohol/Substance Use Screening 06/08/2026 06/08/2025 Tobacco Screening 06/10/2026 06/10/2025 Cervical Cancer Screening 09/27/2027 HPV/Cotest 09/27/2027 09/26/2022, [...] on patient's age to complete this topic Goals Goal Patient Goal Type Associated Problems Recent Progress Patient-Stated? Author Help patients manage their type 2 diabetes Care Plan Help patients manage their type 2 diabetes No Nathaly Tuttle MA Weekly blood pressure task Care Plan Weekly blood pressure task No Nathaly Tuttle MA Help patients manage their type 2 diabetes Care Plan Help patients manage their type 2 diabetes No Nathaly Tuttle MA Patient has chronic kidney disease Care Plan Patient has chronic kidney disease No Nathaly Tuttle MA Weekly blood pressure task Care Plan Weekly blood pressure task No Nathaly Tuttle MA Patient has chronic kidney disease Care Plan Patient has chronic kidney disease No Nathaly Tuttle MA Weekly blood pressure task Care Plan Weekly blood pressure task No Cuca Pires, LIZY Weekly blood pressure task Care Plan Weekly blood pressure task No Cuca Pires, OD Patient has chronic kidney disease Care Plan Patient has chronic kidney disease No Cuca Pires, OD Patient has chronic kidney disease Care Plan Patient has chronic kidney disease No Cuca Pires, OD Procedures Procedure Name Priority Date/Time Associated Diagnosis Comments POCT GLYCOSYLATED HEMOGLOBIN (HGB A1C) Routine 06/08/2025 10:07 AM EST Type 2 diabetes mellitus without complication, without long-term current use of insulin (HCC) POCT GLUCOSE Routine 06/08/2025 10:03 AM EST Type 2 diabetes mellitus without complication, without long-term current use of insulin (HCC) FUNDUS PHOTOS - OU - BOTH EYES Routine 05/17/2025 9:20 AM EST Diabetes type 2, no ocular involvement (HCC) DENTURE IMPRESSION Routine 05/16/2025 2: 30 PM EST CASE PRESENTATION, DETAILED AND EXTENSIVE TREATMENT PLANNING Routine 04/25/2025 2:00 PM EDT 11 CORE BUILDUP, INCL ANY PINS WHEN REQ Routine 04/25/2025 2:00 PM EDT 7 MIFL RESIN-BASED COMPOSITE - 4 OR MORE SURFACES (ANTERIOR) Routine 04/25/2025 2:00 PM EDT CASE PRESENTATION, DETAILED AND EXTENSIVE TREATMENT PLANNING Routine 04/01/2025 9:00 AM EDT PERIODIC ORAL EVALUATION - ESTABLISHED PATIENT Routine 04/01/2025 9:00 AM EDT INTRAORAL - COMPLETE SERIES OF RADIOGRAPHIC IMAGES Routine 04/01/2025 9:00 AM EDT 31 O AMALGAM FILLING Routine 04/01/2025 12:00 AM EDT US PELVIS TRANSVAGINAL Routine 4:43 PM EDT HEPATITIS C AB W/REFL TO HCV RNA, QN, PCR Routine 01/04/2025 4:05 PM EDT HIV 1/2 ANTIGEN/ANTIBODY, FOURTH GENERATION W/RFL Routine 01/04/2025 4:05 PM EDT BI MAMMOGRAM SCREENING TOMOSYNTHESIS BILATERAL Routine 01/03/2025 3:18 PM EDT AMB REFERRAL TO PODIATRY Routine 11/04/2023 Bunion [...] Recently Relevant to Health Maintenance Results * (ABNORMAL) POCT glycosylated hemoglobin (Hgb A1c) (06/08/2025 10:07 AM EST) Hemoglobin A1C 6.5(A) 4.0 - 5.7 % QC Media Lot # [id number] Lot# Expiration Date 063 Blood Capillary blood specimen / Unknown 06/08/2025 10:07 AM EST [facility] ENTER/EDIT ORDERABLES Final Result * POCT glucose manually resulted (06/08/2025 10:03 AM EST) Glucose Blood, POC 122 60 - 200 mg/dL QC Media Lot # [id number] Lot# Expiration Date 53,548 Blood Capillary blood specimen / Unknown 06/08/2025 10:03 AM EST [facility] POINT OF [facility]ARE TEST ENTER/EDIT ORDERABLES Final Result * Fundus Photos - OU - Both Eyes (05/17/2025 9:20 AM EST) Narrative Cuca Pires, OD - 06/10/2025 12:30 PM EST Images from the original result were not included. Right Eye Progression has no prior data. Disc findings include (Cup-to-disc ratio: 0.1 round, no NVD). Macula findings include (No CSME/SRF). Vessel findings include normal observations. Periphery findings include (No NVE). Left Eye Progression has no prior data. Disc findings include (Cup-to-disc ratio: 0.1 round, no NVD). Macula findings include (No CSME/SRF). Vessel findings include normal observations. Periphery findings include (No NVE). Notes Assessment and Plan: No diabetic retinopathy (DR) noted in either eye to the extent seen in the photos. Will schedule a follow-up for the patient's itching complaint. Will recall in 1 year for a dilated eye exam. us Cuca Herrerafo OD OPHTH PHOTOGRAPHY Final Resul t * US Pelvis Transvaginal (03/24/2025 4:43 PM EDT) Anatomical Region Laterality Modality Pelvis Ultrasound 03/24/2025 4:43 PM EDT Narrative 03/24/2025 5:28 PM EDT [place] [address] Ultrasound Report Signed Patient: Destiny Canales I MR#: [id number] 8 : 1960 Acct:[id number] Age/Sex: 64 / F ADM Date: 03/24/25 Loc: HO.US Attending Dr: Holly Shook CNM Ordering Physician: Holly Shook CNM Date of Service: 03/24/25 Procedure(s): US pelvic and transvaginal Accession Number(s): [id number] cc: Holly Shook CNM; Marbella Rodriguez Reason [...] Kerwin Hernandez MD 03/24/2025 05:26 PM EDT RP Dictated By: Kerwin Hernandez MD Signed By: <Electronically signed by Kerwin Hernandez MD in OV> 03/24/25 1726 DD/ 1643 TD/TT: 03/24/25 1649 Manifest/Order Organizer Print Orders: Procedure Note Donotuseinterpreter, Image - 03/24/[address] [address] Ultrasound Report Signed Patient: Destiny Canales IMR#: [id number] 8 : 1960cct:[id number] Age/Sex: 64 / FADM Date: 03/24/25 Loc: HO.US Attending Dr: Holly Shook CNM Ordering Physician: Holly Shook CNM Date of Service: 03/24/25 Procedure(s): US pelvic and transvaginal Accession Number(s): [id number] cc: Holly Shook CNM; Marbella Rodriguez Reason [...] Kerwin Hernandez MD 03/24/2025 05:26 PM EDT RP Dictated By: Kerwin Hernandez MD Signed By: <Electronically signed by Kerwin Hernandez MD in OV> 03/24/25 1726 DD/ 1643 TD/TT: 03/24/25 1649 Manifest/Order Organizer Print Orders: [facility] External Provider IMG US PROCEDURES Final Result * Hepatitis C Antibody with Reflex to HCV, RNA, Quantitative, Real-Time PCR (01/04/2025 4:05 PM EDT) Hepatitis C Antibody Nonreactive Nonreactive [facility] Comment:Antibodies to HCV no t detected; does not exclude early acuteHCV infection. 01/04/2025 4:05 PM EDT 01/04/2025 4:06 PM EDT Result [facility] Generic External Data Provider LAB BLOOD ORDERAB LES Final Result [facility] [address] [place] [phone] * HIV-1/2 Antigen and Antibodies, Fourth Generation, with Reflexes (01/04/2025 4:05 PM EDT) HIV AB/AG Nonreactive Nonreactive [facility] Comment:HIV-1 p24 Ag and/or HIV-1/HIV-2 Ab not detected.A test result that is nonreactive does not exclude thepossibility of exposure to or infection with HIV-1 and/orHIV-2. Nonreactive results in this assay for individualswith prior exposure to HIV-1 and/or HIV-2 may be due toantigen and antibody levels that are below the limit ofdetection of this assay.[employer] HIV Ag/Ab Combo assay result andsupplemental assay results should be interpreted inconjunction with the patient's clinical presentation,history and other laboratory results. If the results areinconsistent with clinical evidence, additional testing issuggested to confirm the result. 01/04/2025 4:05 PM EDT 01/04/2025 4:06 PM EDT us Generic External Data Provider LAB BLOOD ORDERAB LES Final Result [facility] [address] [facility] [place] [address] [phone] * BI Mammogram Screening Tomosynthesis Bilateral (01/03/2025 3:18 PM EDT) Anatomical Region Laterality Modality Breast Bilateral Mammography 01/03/2025 3:18 PM EDT Narrative 01/16/2025 8:33 PM EDT [address] [place] [address] Mammography Report Signed Patient: Destiny Canales I MR#: [id number] 8 : 1960 Acct:[id number] Age/Sex: 64 / F ADM Date: 01/03/25 Loc: HO.MAMMO Attending Dr: Marbella Rodriguez PATIENT REGISTRATION SPECIALIST Ordering Physician: Marbella Rodriguez PATIENT REGISTRATION SPECIALIST Results: 2Benig n Findings Date of Service: 01/03/25 Follow Up: 1 Year From [facility] Mammogram Procedure(s): MM tomosynthesis screening BI Accession Number(s): [id number] cc: Marbella Rodriguez PATIENT REGISTRATION SPECIALIST EXAMINATION: MM SCREENING DIGITAL BREAST TOMOSYNTHESIS, BILATERAL [...] OV> 01/16/252029 DD/ 1518 TD/TT: 01/03/25 1530 Manifest/Order Organizer Print Orders: Procedure Note Donotuseinterpreter, Image - 01/16/2025 [facility] [address] [place] [address] Mammography Report Signed Patient: Destiny Canales IMR#: [id number] 8 : 1960cct:[id number] Age/Sex: 64 / FADM Date: 01/03/25 Loc: HO.MAMMO Attending Dr: Marbella Rodriguez PATIENT REGISTRATION SPECIALIST Ordering Physician: Marbella Rodriguez FNPResults: 2Benig n Findings Date of Service: 01/03/25Follow Up: 1 Year From Orig ina Mammogram Procedure(s): MM tomosynthesis screening BI Accession Number(s): [id number] cc: Marbella Rodriguez PATIENT REGISTRATION SPECIALIST EXAMINATION: MM SCREENING DIGITAL BREAST TOMOSYNTHESIS, BILATERAL [...] OV> 01/16/252029 DD/ 1518 TD/TT: 01/03/25 1530 Manifest/Order Organizer Print Orders: Marbella Rodriguez [facility] IMG BI PROCEDURES Edited Resul t - Final * Referral to Podiatry (11/04/2023) Marbella Rodriguez [facility] OUTPATIENT REFERRAL ORDERABLES Final Result * (ABNORMAL) Lipid Panel, Standard (10/09/2022 8:52 AM EDT) Cholesterol, Total 172 <200 mg/dL [facility] HDL Cholesterol 58 > OR = 50 mg/dL [facility] Triglycerides 59 <150 mg/dL [facility] LDL Cholesterol 100(H) mg/dL (calc) [facility] Comment: Reference range: <100 Desirable range <100 mg/dL for primary prevention; <70 mg/dL for patients with CHD or diabetic patients with > or = 2 CHD risk factors. LDL-C is now calculated using the Elmer-Ceron calculation, which is a validated novel method providing better accuracy than the Friedewald equation in the estimation of LDL-C. Emler SS et al. BETTINA. 2013;310(19): 5330-6688 (http://education.[employer]/faq/BLG025) Chol/HDLC Ratio 3.0 <5.0 (calc) [facility] Non-HDL Cholesterol 114 <130 mg/dL (calc) [facility] Comment: For patients with diabetes plus 1 major ASCVD risk factor, treating to a non-HDL-C goal of <100 mg/dL (LDL-C of <70 mg/dL) is considered a therapeutic option. Blood Venous blood specimen / Unknown 10/09/2022 8:52 AM EDT 10/09/2022 8:53 AM EDT Narrative [facility] - 10/11/2022 8:59 PM EDT FASTING:YES PATIENT UNABLE TO VOID; ADVISED TO RETURN FOR COLLECTION. FASTING: YES Marbella Rodriguez PATIENT REGISTRATION SPECIALIST LAB BLOOD ORDERABLES Final Res ult [facility] [address], [place] [address] [facility] [address] [place] [phone] * HPV mRNA E6/E7 w/Reflex to HPV Genotypes 16, 18/45 (09/26/2022 3:05 PM EDT) HPV nRNA E6/E7 Not Detected Not Detected [facility] Comment:Methodology: Transcr iption-Mediated AmplificationThis assay detects E6/E7 viral messenger RNA (mRNA) from 14high-risk HPV types (16,18,31,33,35,39,45,51,52,56,58,59,66,68).Cervical sources are required for HPV testing.If a vaginal source from a patient who has had atotal hysterectomy with removal of cervix wassubmitted, please contact the testing laboratoryfor alternative testing options.For additional information, please refer tohttp://education.[employer]/faq/MEV928s9(This link if provided for information/educational purposes only.)THIS TEST WAS PERFORMED AT:[facility] [address] [phone] KLEIN MD HPV mRNA E6/E7 [facility] HPV 16 RNA [facility] HPV 18/45 RNA [facility] 09/26/2022 3:05 PM EDT 09/27/2022 9:45 AM EDT [facility] External Provider LAB CYT OLOGY ORDERABLES Final Result Performing Organization Address [facility]/ZIP Co de Phone Number [facility] [address] [place] [address] [phone] * Pap Smear (09/26/2022 3:05 PM EDT) 09/26/2022 3:05 PM EDT 09/27/2022 9:45 AM EDT [place] [facility] - 10/07/2022 12:02 PM EDT ----- ------- Name: Destiny Canales I Age/Sex: 62/F : 1960 Unit#: [id number] Attend Dr: Holly Shook CNM Re09/26/22 Status: [facility] REF Location: [facility] Disch: ----- ------- SPEC : [id number] RECD: 09/27/22-45 STATUS: RADHA DANIELLE NUM: [id number] DAISHA: 09/26/22-1505 [facility] DR: Holly Shook CNM ENTERED: 09/27/22-1001 SP TYPE: Pap Smr OT DR: Marbella Rodriguez PATIENT REGISTRATION SPECIALIST ORDERED: Pap Smear Interpretation Satisfactory for evaluation. Negative for intraepithelial lesion or malignancy. HPV mRNA E6/E7: NOT DETECTED This assay detects E6/E7 viral messenger RNA (mRNA) from 14 high-risk HPV types (16, 18, 31, 33, 35, 39, 45, 51, 52, 56, 58, 59, 66, 68) HPV testing performed by [facility], [place], [place]. See reference laboratory portion of the EMR for entire report. Clinical Information LMP: Menopausal Previous PAP test: 2021, WNL Material Received ThinPrep-Cervical Copies To: Holly Shook [address] [place] [address] Marbella Rodriguez PATIENT REGISTRATION SPECIALIST [address] [place] [address] ----- ------- Signed (signature on file) Yahaira Lopes Leoncio 10/07/22 1202 ----- ------- END OF REPORT [facility] External Provider LAB CYT OLOGY ORDERABLES Final Result [facility] [address] [place] [address] [phone] * ALBUMIN, RANDOM URINE W/CREATININE (04/27/2021 10:04 AM EDT) Microalbumin Urine 2.3 See Note: mg/dL [facility] Comment: Reference Range: Reference Range [...] Creatinine, Urine 102 20 - 275 mg/dL [facility] 04/27/2021 10:0 4 AM EDT us Keli Emery NP LAB URINE ORDERABLES Final Res ult [facility] [address] [place] [address], * (ABNORMAL) Colonoscopy (07/27/2020) Colonoscopy Abnormal(A ) Normal Narrative Marbella Rodriguez FNP - 07/27/2020 [facility] [place] [facility]. Mae. Plan: 5 year follow up us Historical Provider MD HEALTH MAINTENANCE Final Result from Last 3 Months or Most Recently Relevant to Health Maintenance Additional Health Concerns Active Problems Noted Date Diagnosed Date Help patients manage their type 2 diabetes 06/08 Weekly blood pressure task 06/08/2025 Help patients manage their type 2 diabetes 06/08 Patient has chronic kidney disease 06/08/2025 Weekly blood pressure task 06/08/2025 Patient has chronic kidney disease 06/08/2025 Weekly blood pressure task 06/10/2025 Weekly blood pressure task 06/10/2025 Patient has chronic kidney disease 06/10/2025 Patient has chronic kidney disease 06/10/2025 Insurance [facility] [place] AD[place] Care Teams Green House Manager Relationship Specialty Start Date End Date Marbella Rodriguez FNP [address] [place] [phone] PCP - General Family Medicine 03/05/22
--- OUTSIDE RECORDS SUMMARY | 2025-06-23 12:23 | XMS_ITS | Encounter Summary ---
Author Organization [employer] Address [address] [facility] 7 [place] [address] Care Team Providers Care Liquor Department Manager Name Role Phone Marbella Rodriguez Primary Care Provider [phone] Reason for Visit * Reason Comments Med Refill Encounter Details Date Type Department Care Team (Late Contact Info) Description 12/14/2022 Refill [facility] [address] [place] [address] Marbella Rodriguez FNP [address] [place] [address] Routine health maintenance Social History Tobacco Use [...] Description 06/29/2025 1:30 PM EST Office Visit [facility] ADULT DENTAL [address] [place] [address] Fernando Walsh, KARINA [address] [place] [address] 07/13/2025 9:45 AM EST Office Visit [facility] MEDICINE [address] [place] [address] Marbella Rodriguez FNP [address] [place] [address] documented as of this encounter Visit Diagnoses Diagnosis Routine health maintenance Unspecified examination documented in this encounter Care Teams Liquor Department Manager Relationship Specialty Start Date End Date Marbella Rodriguez FNP [address] [place] [id number] PCP - General Family Medicine 03/05/22 documented as of this encounter
--- OUTSIDE RECORDS SUMMARY | 2025-06-23 12:23 | XMS_ITS | Encounter Summary ---
Author Organization [employer] Address [address] [facility] 7t [place] [address] Care Team Providers Care Wood Milling Machine Hand Name Role Phone Marbella Rodriguez Primary Care Provider [phone] Reason for Visit * Reason Comments Med Refill Encounter Details Date Type Department Care Team ([facility] st Contact Info) Description 06/10/2023 Refill [facility]BILE [facility]INE [facility] [address] [place] [address] Marbella Rodriguez FNP [address] [place] [address] Routine health maintenance Social History Tobacco Use [...] Description 06/29/2025 1:30 PM EST Office Visit [facility] ADULT DENTAL [address] [place] [address] Fernando Walsh, DMD [address] [place] [address] 07/13/2025 9:45 AM EST Office Visit [facility] MEDICINE [address] [place] [address] Marbella Rodriguez FNP [address] [place] [address] documented as of this encounter Visit Diagnoses Diagnosis Routine health maintenance Unspecified examination documented in this encounter Additional Health Concerns Assessment Noted Time PHQ-9 Depression Total Score: 6 05/23/20 23 4:38 PM EST documented as of this encounter Care Teams Wood Milling Machine Hand Relationship Specialty Start Date End Date Marbella Rodriguez FNP [address] [place] [phone] PCP - General Family Medicine 03/05/22 documented as of this encounter
--- OUTSIDE RECORDS SUMMARY | 2025-06-23 12:23 | XMS_ITS | Encounter Summary ---
Author Organization [employer] Address [address] [facility] 7t [place] [address] Care Team Providers Care Ict Help Desk Officer Name Role Phone Marbella Rodriguez Primary Care Provider [phone] Reason for Visit * Reason Onset Date Comments Results 08/05/2023 Encounter Details Date Type Department Care Team ([facility] st Contact Info) Description 08/05/2023 Telephone [facility] MEDICINE [address] [place] [address] Marbella Rodriguez FNP [address] [place] [address] Results Social History Tobacco Use Types Packs/Day [...] results: mammogram Date when done: N/A Facility: [facility] documented in this encounter Plan of Treatment Upcoming Encounters Date Type Department Care Team (Late st Contact Info) Description 06/29/2025 1:30 PM EST Office Visit [facility] ADULT DENTAL [address] [place] [address] Fernando Walsh, KARINA [address] [place] [address] 07/13/2025 9:45 AM EST Office Visit [facility] MEDICINE [address] [place] [address] Marbella Rodriguez FNP [address] [place] [address] documented as of this encounter Visit Diagnoses Not on filedocumented in this encounter Additional Health Concerns Assessment Noted Time PHQ-9 Depression Total Score: 6 05/23/20 23 4:38 PM EST documented as of this encounter Care Teams Ict Help Desk Officer Relationship Specialty Start Date End Date Marbella Rodriguez FNP [address] [place] [address] PCP - General Family Medicine 03/05/22 documented as of this encounter
== END 2025-06-23 10:43 | disposition home or self-care (01) ==
LOC: HO.HGS 10:04
PROVIDERS: PCP Registered Nurse; Visit Provider Surgery
DX: L72.0 Epidermal cyst (principal)
CPT/HCPCS: 99203

== ENCOUNTER → 2025-06-23 10:03 | Outpatient (BNVA) | payer MEDICAID, SELFPAY | PROVIDERS: PCP Registered Nurse; Visit Provider Surgery | DX: L72.0 Epidermal cyst (principal) | CPT/HCPCS: 99202 ==